=== PATIENT | female | born 1970 | race Caucasian/White ===

== ENCOUNTER 2021-02-24 13:57 | Outpatient (RCR) | payer MEDICAID, SELFPAY ==
--- NOTE | ~2021-02-24 | XR_ITS ---
XR/XR femur RT 2V IMPRESSION: Normal right femur. EXAMINATION: XR FEMUR, RIGHT CLINICAL INFORMATION: Nonhealing right upper leg wound. COMPARISON: None TECHNIQUE: AP and lateral views of the right femur were obtained. FINDINGS: The bones and soft tissues are normal. No fracture. No osseous lesions. No evidence for osteomyelitis.
== END 2021-03-19 11:36 | disposition home or self-care (01) ==
LOC: HO.WCC 13:57
PROVIDERS: PCP Internal Medicine; Referring Provider Internal Medicine; Visit Provider Physician Assistant
DX: L97.112 Non-pressure chronic ulcer of right thigh with fat layer exposed (principal); F20.9 Schizophrenia, unspecified; F17.210 Nicotine dependence, cigarettes, uncomplicated; F14.90 Cocaine use, unspecified, uncomplicated
CPT/HCPCS: 11042; 73552; 99212

== ENCOUNTER 2021-11-17 10:18 | Outpatient (REF) | payer MEDICAID, SELFPAY ==
[2021-11-24 06:51] LABS: HPV mRNA E6/E7 rflx Not Detected (Not Detected)
== END 2021-11-17 10:19 | disposition home or self-care (01) ==
LOC: HO.LAB 10:18
PROVIDERS: PCP Internal Medicine; Visit Provider Obstetrics & Gynecology
DX: Z12.4 Encounter for screening for malignant neoplasm of cervix (principal); Z11.51 Encounter for screening for human papillomavirus (HPV); N95.0 Postmenopausal bleeding; N84.1 Polyp of cervix uteri
CPT/HCPCS: 56605; 57500; 87624; 88142; 88305; 99202

== ENCOUNTER 2022-01-29 10:55 | Outpatient (REF) | payer MEDICAID, SELFPAY ==
--- NOTE | ~2022-01-29 | US_ITS ---
EXAMINATION: US PELVIS CLINICAL INFORMATION: Postmenopausal bleeding COMPARISON: None TECHNIQUE: Ultrasound of the pelvis is performed using both transabdominal and transvaginal transducers along with Doppler. Transvaginal imaging is performed due to inadequate visualization transabdominally. FINDINGS: The uterus is anteverted and measures 9.5 x 3 x 5 cm in dimension. No focal uterine lesion is seen. Endometrial thickness is normal measuring 0.3 cm. There are small nabothian cysts in the cervix. The right ovary is normal-appearing and measures 2.4 x 1.2 x 1.9 cm. the left ovary measures 2.8 x 2.1 x 1.7 cm. There is question of a 2.5 x 1.7 x 1.3 cm left ovarian cyst. There is a small amount of fluid in the pelvis. US/US pelvic and transvaginal IMPRESSION: Normal thickness endometrium. Question 2.5 x 1.7 x 1.3 cm left ovarian cyst.
== END 2022-01-29 10:56 | disposition home or self-care (01) ==
LOC: HO.US 10:55
PROVIDERS: Visit Provider Obstetrics & Gynecology
DX: N95.0 Postmenopausal bleeding (principal)
CPT/HCPCS: 76830; 76856

== ENCOUNTER 2022-02-17 09:11 | Outpatient (REF) | payer MEDICAID, SELFPAY ==
[2022-02-20 10:52] LABS: CA-125 7 U/mL (<35)
== END 2022-02-17 09:12 | disposition home or self-care (01) ==
LOC: HO.LAB 09:11
PROVIDERS: PCP Internal Medicine; Visit Provider Obstetrics & Gynecology
DX: N95.0 Postmenopausal bleeding (principal); N83.202 Unspecified ovarian cyst, left side; Z32.02 Encounter for pregnancy test, result negative
CPT/HCPCS: 36415; 81025; 86304; 99212

== ENCOUNTER 2022-12-02 11:05 | Outpatient (REF) | payer MEDICAID, SELFPAY ==
--- NOTE | ~2022-12-02 | US_ITS ---
EXAMINATION: US PELVIS CLINICAL INFORMATION: Follow up ovarian cyst. Postmenopausal. COMPARISON: None available. TECHNIQUE: Ultrasound of the pelvis is performed using both transabdominal and transvaginal transducers along with Doppler. Transvaginal imaging is performed due to inadequate visualization transabdominally. FINDINGS: The uterus is anteverted and measures 7.8 x 4 x 5.4 cm. No uterine lesion. The endometrium measures 0.4 cm in thickness without discrete focal abnormality. Ovaries are normal in morphology with preserved flow at the moment of this examination. Right ovary measures 2.8 x 0.8 x 1.8 cm, 2 mL. Left ovary measures 3 x 1.4 x 2.4 cm, 5 mL. No adnexal mass. No free fluid. US/US pelvic and transvaginal IMPRESSION: No discrete ovarian cyst/mass. No significant sonographic abnormality.
== END 2022-12-02 11:06 | disposition home or self-care (01) ==
LOC: HO.US 11:05
PROVIDERS: PCP Internal Medicine; Visit Provider Obstetrics & Gynecology
DX: N83.209 Unspecified ovarian cyst, unspecified side (principal); N95.9 Unspecified menopausal and perimenopausal disorder
CPT/HCPCS: 76830; 76856

== ENCOUNTER 2022-12-09 10:19 | Outpatient (REF) | payer MEDICAID, SELFPAY ==
[2022-12-09 10:39] LABS: MANUAL DIFF FLAG NO
[2022-12-09 10:49] LABS: Basophils Absolute Auto 0.1 X10*3/uL (0.0-0.2); Basophils Percent Auto 1.3 % (0-2); Eosinophils Absolute Auto 0.1 X10*3/uL (0.0-0.4); Eosinophils Percent Auto 1.6 % (0-4); Hematocrit 32.5 % (37.0-47.0); Hemoglobin 10.7 g/dl (12.0-16.0); Imm Gran Abs Auto 0.01 X10*3/uL (0.00-0.03); Imm Gran Pct Auto 0.1 % (0.0-0.4); Lymphocytes Absolute Auto 2.6 X10*3/uL (1.2-4.9); Lymphocytes Percent Auto 39.5 % (20-40); Mean Corpuscular HGB Conc 32.9 g/dl (31.0-35.0); Mean Corpuscular Hemoglobin 29.2 pg (27.0-33.0); Mean Corpuscular Volume 88.6 fL (80.0-98.0); Mean Platelet Volume 9.2 fL (9.4-12.3); Monocytes Absolute Auto 0.4 X10*3/uL (0.1-1.2); Monocytes Percent Auto 5.4 % (2-11); Neutrophils Absolute Auto 3.5 x10*3/uL (2.0-8.3); Neutrophils Percent Auto 52.1 % (45-73); Platelet Count 408 X10*3/uL (160-400); Red Blood Count 3.67 X10*6/uL (4.20-5.50); Red Cell Distribution Width 14.7 % (11.0-16.0); White Blood Count 6.7 X10*3/uL (4.8-10.8)
[2022-12-09 11:10] LABS: Estimated Average Glucose 108 mg/dL; Hemoglobin A1c % 5.4 % (<6.0)
[2022-12-09 11:19] LABS: Alanine Aminotransferase 22 U/L (0-31); Alkaline Phosphatase 29 U/L (39-117); Anion Gap 10 (12-20); Aspartate Amino Transferase 22 U/L (5-31); Bilirubin Total 0.2 mg/dL (0.0-1.0); Blood Urea Nitrogen 13 mg/dL (9-16); Calcium 9.2 mg/dL (8.4-10.2); Carbon Dioxide 26 mmol/L (22-29); Chloride 105 mmol/L (96-108); Estimated Glomerular Filt Rate > 60; Glucose Random 128 mg/dL (60-115); Sodium 137 mmol/L (135-145); Total Protein 7.2 g/dL (6.5-8.0)
[2022-12-09 11:29] LABS: Ferritin 11 ng/mL (10-250)
[2022-12-09 11:44] LABS: Folate 18.5 ng/mL (> or = 4.0); Vitamin B12 838 pg/mL (200-900)
[2022-12-09 12:51] LABS: CT PCR NOT DETECTED (Not Detect.); NG PCR NOT DETECTED (Not Detect.)
[2022-12-10 07:59] LABS: HIV AB/AG Nonreactive (Nonreactive); HIV Num 1 0.53 S/CO (0.00-0.99)
[2022-12-10 08:48] LABS: Syphilis Screen Nonreactive (Nonreactive)
== END 2022-12-09 10:20 | disposition home or self-care (01) ==
LOC: HO.LAB 10:19
PROVIDERS: PCP Internal Medicine; Visit Provider Internal Medicine
DX: D64.9 Anemia, unspecified (principal); E89.0 Postprocedural hypothyroidism; F10.19 Alcohol abuse with unspecified alcohol-induced disorder; F14.24 Cocaine dependence with cocaine-induced mood disorder; Z11.3 Encounter for screening for infections with a predominantly sexual mode of transmission
CPT/HCPCS: 0353U; 80053; 82607; 82728; 82746; 83036; 85025; 86780; 87389

== ENCOUNTER 2023-01-06 08:40 | Outpatient (AMB) | payer MEDICAID, SELFPAY ==
--- NOTE | 2023-01-06 08:58 | A.OFFVIS_ITS ---
Intake Vital Signs 01/06/23 08:59 Height 5 ft 4 in Weight 119 lb 0.794 oz BMI 20.4 BP 118/74 Intake Visit Reasons: US follow up Rest Room Attendant Required: Yes Rest Room Attendant Language: Mortar Maker Name: Yamini PETERS Information Interpreted: non-clinical & clinical Accompanied by: Friend Allergies Penicillins Allergy (Intermediate, Verified 01/06/23 09:02) Rash Post menopausal: Yes HPI HPI Comments History of Present Illness Details Presenting for follow-up repeat ultrasound regarding a left ovarian cyst 2.5 cm seen on previous ultrasound done in 01/30. Ultrasound done recently showed the following: MPRESSION: No discrete ovarian cyst/mass. No significant sonographic abnormality. PFSH Medical History Schizo affective schizophrenia Depression Anxiety Surgical History Hx of tonsillectomy Hx of tubal ligation S/P thyroid surgery Family History Sister Breast cancer Mother Alzheimer disease Father Prostate cancer Social History Household Members: None Housing: Apartment Alcohol intake: current Alcohol intake frequency: holidays/special occasions only Alcohol type: beer Patient Tobacco Use Status: Current everyday Tobacco user Cigarettes Per Day: 7 Years Smoked: 25 Review of Systems Const All systems reviewed & are unremarkable except as noted in HPI and below Reports as per HPI and Reports no additional complaints GI Reports no additional complaints Reports no additional complaints Physical Exam Vital Signs: Last Vital Signs BP 118/74 01/06/23 08:59 BMI result Body Mass Index 20.4 Assessment & Plan Assessment & Plan (1) Ovarian cyst: Comment: Resolved Code(s): N83.209 - Unspecified ovarian cyst, unspecified side Plan: Discussed with the patient ultrasound findings showing the previously identified ovarian cyst has resolved. The patient was instructed to call if symptoms recur. All questions were answered the patient verbalized understanding. Coding Level of Care Code Est Pt Level 3 (94638) Diagnoses Ovarian cyst N83.209
[2023-01-06 08:59] VITALS: BP 118/74; BMI 20.4
== END 2023-01-06 13:09 | disposition home or self-care (01) ==
LOC: HO.HWS 08:40
PROVIDERS: PCP Internal Medicine; Visit Provider Obstetrics & Gynecology
DX: N83.209 Unspecified ovarian cyst, unspecified side (principal)
CPT/HCPCS: 99213

== ENCOUNTER → 2023-01-06 08:40 | Outpatient (BNVA) | payer MEDICAID, SELFPAY | PROVIDERS: PCP Internal Medicine; Visit Provider Obstetrics & Gynecology | DX: Z71.2 Person consulting for explanation of examination or test findings (principal) | CPT/HCPCS: 99212 ==

== ENCOUNTER 2023-05-04 09:46 | Outpatient (AMB) | payer MEDICAID, SELFPAY ==
[2023-05-04 09:50] VITALS: BP 110/66; BMI 19.7
--- NOTE | 2023-05-04 09:50 | A.OFFVIS_ITS ---
Intake Vital Signs 05/04/23 09:50 Height 5 ft 4 in Weight 115 lb BMI 19.7 BP 110/66 Intake Visit Reasons: SEPARATOR INSERTER annual exam Software Testing Specialist Required: Yes Software Testing Specialist Language: Stapler Coil Unit Name: Yamini PETERS Information Interpreted: non-clinical & clinical Coal Loader: Coal Loader Present (Yamini PETERS) Accompanied by: Employee Allergies Penicillins Allergy (Intermediate, Verified 05/04/23 09:57) Rash Post menopausal: Yes HPI HPI Comments History of Present Illness Details Presenting for annual exam. Complaining of vaginal discharge associated with foul odor Last Pap/HPV was in 11/30 was negative Last Mammogram was more than a year ago No previous screening Colonoscopy PFSH Medical History Schizo affective schizophrenia Depression Anxiety Surgical History Hx of tubal ligation Hx of tonsillectomy S/P thyroid surgery Family History Sister Breast cancer Mother Alzheimer disease Father Prostate cancer Social History Household Members: None Housing: Apartment Alcohol intake: current Alcohol intake frequency: holidays/special occasions only Alcohol type: beer Patient Tobacco Use Status: Current everyday Tobacco user Cigarettes Per Day: 7 Years Smoked: 25 Current occupational status: disabled Sexual orientation: Straight/Heterosexual Gender identity: Female Female Reproductive History Menstrual Menopause type: natural Total pregnancies: 6 Full term: 4 Number of Living Children: 4 Ab spontaneous: 2 Date of last pap smear: 11/19/21 Review of Systems Const All systems reviewed & are unremarkable except as noted in HPI and below Card Reports as per HPI Resp Reports as per HPI GI Reports as per HPI and Reports no additional complaints Reports as per HPI Physical Exam Vital Signs: Last Vital Signs BP 110/66 05/04/23 09:50 BMI result Body Mass Index 20.4 Const General: cooperative, healthy appearing and comfortable Chest Chest palpation & inspection: normal inspection of the chest and normal palpation of entire chest wall Breast/axilla inspection: normal inspection of the breasts and normal inspection of the axillae Breast/axilla palpation: normal palpation of the breasts, normal palpation of the axillae and no axillary lymphadenopathy Resp Effort & Inspection: normal respiratory effort Auscultation: clear to auscultation bilaterally Percussion: percussion normal Cardio Palpation: normal PMI Rate: regular rate Rhythm: regular rhythm Heart sounds: no murmurs and no rubs Peripheral pulses: Peripheral pulses 2+ throughout GI Inspection: Yes normal to inspection Palpation (GI): Soft to palpation, nontender, no guarding, not rigid and No hepatosplenomegaly present Percussion: Yes normal to percussion Auscultation: normal bowel sounds Rectal Exam - Female: deferred General: Yes bladder normal to palpation External Female Exam: No lesion Speculum Exam - Vagina: normal appearance of the vagina, normal palpation, normal vaginal discharge and not erythematous Speculum Exam - Cervix: normal appearance of the cervix and normal palpation Bimanual exam- vagina & uterus: normal bimanual exam, normal palpation, uterine size normal, bladder normal to palpation, consistency normal and normal palpation Bimanual Exam- Adnexa, other: normal adnexae, no masses and no tenderness Assessment & Plan Assessment & Plan (1) Well woman exam: Code(s): Z01.419 - Encounter for gynecological examination (general) (routine) without abnormal findings Plan: Co testing not indicated this year. Counseled the patient about the recommended dietary allowance of 1200 mg of Calcium & 600 IU of vitamin D. Mammogram ordered. The patient was referred to GI for screening colonoscopy . The patient was instructed to perform monthly self-breast exams and schedule annual exam in a year. All questions answered and the patient verbalized understanding. (2) Bacterial vaginosis: Code(s): N76.0 - Acute vaginitis; B96.89 - Other specified bacterial agents as the cause of diseases classified elsewhere Plan: GC and chlamydia cultures with BV panel taken. Per CDC recommendation, will screen for STI, HepBs Ag, HIV, RPR, Hep C Ab ordered. Will treat with Flagyl 500 mg p.o. b.i.d. x 7 days, Instructions given to the patient to refrain from sexual activity or to use condoms consistently and correctly during the BV treatment regimen, not to douch, it might increase the risk for relapse, and to call if symptoms persist or recur. Orders: Orders Hepatitis B Surface Antigen Today B96.89 - Other specified bacterial agents as the cause of diseases classified elsewhere, N76.0 - Acute vaginitis HIV Ab/Ag Today B96.89 - Other specified bacterial agents as the cause of diseases classified elsewhere, N76.0 - Acute vaginitis Hepatitis C Antibody Today B96.89 - Other specified bacterial agents as the cause of diseases classified elsewhere, N76.0 - Acute vaginitis Syphilis Screen Today B96.89 - Other specified bacterial agents as the cause of diseases classified elsewhere, N76.0 - Acute vaginitis MM tomosynthesis screening BI Today Z12.31 - Encounter for screening mammogram for malignant neoplasm of breast Referrals Gastroenterology Referral Z12.11 - Encounter for screening for malignant neoplasm of colon Medications: New metronidazole 500 mg PO BID 14 tabs 0RF 7 days Coding Level of Care Code Est Pt Prev Care 40-64y(84219) Diagnoses Well woman exam Z01.419 Bacterial vaginosis N76.0; B96.89
== END 2023-05-04 10:30 | disposition home or self-care (01) ==
PROVIDERS: PCP Internal Medicine; Referring Provider Internal Medicine; Visit Provider Obstetrics & Gynecology
DX: Z01.419 Encounter for gynecological examination (general) (routine) without abnormal findings (principal); N76.0 Acute vaginitis; B96.89 Other specified bacterial agents as the cause of diseases classified elsewhere
CPT/HCPCS: 99396

== ENCOUNTER 2023-05-04 09:46 | Outpatient (REF) | payer MEDICAID, SELFPAY ==
[2023-05-04 12:51] LABS: Syphilis Screen Nonreactive (Nonreactive)
[2023-05-04 14:04] LABS: CT PCR NOT DETECTED (Not Detect.); NG PCR NOT DETECTED (Not Detect.)
[2023-05-05 08:33] LABS: HBsAGNum1 0.39 S/CO (0.00-0.99); HIV AB/AG Nonreactive (Nonreactive); HIV Num 1 0.06 S/CO (0.00-0.99); Hepatitis B Surface Antigen Negative (Negative); ~HepC Num1 14.03 S/CO (0.00-0.79); ~Hepatitis C Antibody Reactive (Nonreactive)
[2023-05-05 13:43] LABS: BV Int Neg Control Negative (Negative); BV Int Pos Control Positive (Positive)
== END 2023-05-04 09:47 | disposition home or self-care (01) ==
LOC: HO.LAB 09:46
PROVIDERS: PCP Internal Medicine; Visit Provider Obstetrics & Gynecology
DX: Z01.419 Encounter for gynecological examination (general) (routine) without abnormal findings (principal); Z11.4 Encounter for screening for human immunodeficiency virus [HIV]; N76.0 Acute vaginitis; B96.89 Other specified bacterial agents as the cause of diseases classified elsewhere
CPT/HCPCS: 0353U; 36415; 86780; 86803; 87340; 87389; 87480; 87510; 87660; 99396

== ENCOUNTER 2023-05-09 09:25 | Outpatient (REF) | payer MEDICAID, SELFPAY ==
[2023-05-11 16:49] LABS: HCV RNA PCR Qn 1880000 IU/mL (NOT DETECTED); HCV RNA PCR Qn 6.27 Log IU/mL (NOT DETECTED)
[2023-05-15 21:08] LABS: HCV Genotype LiPA 1a
== END 2023-05-09 09:26 | disposition home or self-care (01) ==
LOC: HO.LAB 09:25
PROVIDERS: PCP Internal Medicine; Visit Provider Obstetrics & Gynecology
DX: R76.8 Other specified abnormal immunological findings in serum (principal)
CPT/HCPCS: 36415; 87522; 87902

== ENCOUNTER 2023-05-11 10:24 | Outpatient (REF) | payer MEDICAID, SELFPAY ==
[2023-05-12 14:07] LABS: BV Int Neg Control Negative (Negative); BV Int Pos Control Positive (Positive)
== END 2023-05-11 10:25 | disposition home or self-care (01) ==
LOC: HO.LNP 10:24
PROVIDERS: PCP Internal Medicine; Visit Provider Obstetrics & Gynecology
DX: A59.9 Trichomoniasis, unspecified (principal); R76.8 Other specified abnormal immunological findings in serum
CPT/HCPCS: 87480; 87510; 87660; 99212

== ENCOUNTER 2023-05-11 10:24 | Outpatient (AMB) | payer MEDICAID, SELFPAY ==
[2023-05-11 10:38] VITALS: BP 112/70; BMI 19.7
--- NOTE | 2023-05-11 10:38 | MHC.OFFVIS ---
Intake Vital Signs 05/11/23 10:38 Height 5 ft 4 in Weight 115 lb BMI 19.7 BP 112/70 Intake Visit Reasons: MIGUEL ÁNGEL Drawing In Machine Tender Helper Required: Yes Drawing In Machine Tender Helper Language: Practice Clinician Name: Yamini Information Interpreted: non-clinical & clinical Marketing Admin: Marketing Admin Present (Yamini) Allergies Penicillins Allergy (Intermediate, Verified 05/11/23 10:39) Rash HPI HPI Comments History of Present Illness Details The patient is presenting for a test of cure. The patient took the antibiotics course; she informed her partner who was treated too. The patient reports no intercourse since then. Hep C antibody was positive, HCV RNA results are still pending [facility] Medical History Schizo affective schizophrenia Depression Anxiety Surgical History Hx of tubal ligation Hx of tonsillectomy S/P thyroid surgery Family History Sister Breast cancer Mother Alzheimer disease Father Prostate cancer Social History Household Members: None Housing: Apartment Alcohol intake: current Alcohol intake frequency: holidays/special occasions only Alcohol type: beer Patient Tobacco Use Status: Current everyday Tobacco user Cigarettes Per Day: 7 Years Smoked: 25 Current occupational status: disabled Sexual orientation: Straight/Heterosexual Gender identity: Female Review of Systems Const All systems reviewed & are unremarkable except as noted in HPI and below Physical Exam Vital Signs: Last Vital Signs BP 112/70 05/11/23 10:38 BMI result Body Mass Index 19.7 General: Yes no CVA tenderness External Female Exam: normal external appearance and normal appearance of the urethra Speculum Exam - Vagina: normal appearance of the vagina, normal palpation, no lesions and no masses Speculum Exam - Cervix: normal appearance of the cervix, normal palpation, no lesions, no masses and nontender Bimanual exam- vagina & uterus: normal bimanual exam, normal palpation, uterine size normal, normal palpation, uterine shape normal, No Cervical tenderness present and non-tender Bimanual Exam- Adnexa, other: normal adnexae Back/Spine/Pelvis Back: no CVA tenderness Assessment & Plan Assessment & Plan (1) Hepatitis C antibody positive in blood: Code(s): R76.8 - Other specified abnormal immunological findings in serum Plan: Discussed with the patient the results the hep C antibody positive, HCV RNA results are still pending. If positive will refer to infectious disease specialist. All questions answered, the patient verbalized understanding (2) Trichomonas infection: Comment: Treated for test of cure Code(s): A59.9 - Trichomoniasis, unspecified Plan: BV panel collected, will check the results and treat accordingly. Instructions given the patient to schedule a 3 months MIGUEL ÁNGEL appointment. All questions answered, the patient verbalized understanding Coding Level of Care Code Est Pt Level 3 (83087) Diagnoses Hepatitis C antibody positive in blood R76.8 Trichomonas infection A59.9
== END 2023-05-11 10:50 | disposition home or self-care (01) ==
LOC: HO.HWS 10:24
PROVIDERS: PCP Internal Medicine; Visit Provider Obstetrics & Gynecology
DX: R76.8 Other specified abnormal immunological findings in serum (principal); A59.9 Trichomoniasis, unspecified
CPT/HCPCS: 99213

== ENCOUNTER 2023-05-16 10:21 | Outpatient (AMB) | payer MEDICAID, SELFPAY ==
--- NOTE | 2023-05-16 10:22 | MHC.OFFVIS ---
Intake Intake Visit Reasons: Labs results/[phone] Allergies Penicillins Allergy (Intermediate, Verified 05/11/23 10:39) Rash HPI HPI Comments History of Present Illness Details The patient is scheduled tele health visit for follow-up . Hepatitis-C antibody was positive, HCV RNA genotype = 1A, HCV RNA 1,880,000 IU/milliliter, 6.27 log IU per mL. Trichomonas MIGUEL ÁNGEL was negative Gardnerella vaginitis was positive, the patient is not complaining of any vaginal discharge or foul odor PFSH Medical History Schizo affective schizophrenia Depression Anxiety Surgical History Hx of tubal ligation Hx of tonsillectomy S/P thyroid surgery Family History Sister Breast cancer Mother Alzheimer disease Father Prostate cancer Social History Household Members: None Housing: Apartment Alcohol intake: current Alcohol intake frequency: holidays/special occasions only Alcohol type: beer Patient Tobacco Use Status: Current everyday Tobacco user Cigarettes Per Day: 7 Years Smoked: 25 Current occupational status: disabled Sexual orientation: Straight/Heterosexual Gender identity: Female Review of Systems Const All systems reviewed & are unremarkable except as noted in HPI and below Reports as per HPI and Reports no additional complaints GI Reports no additional complaints Reports no additional complaints Assessment & Plan Assessment & Plan (1) Hepatitis C: Code(s): B19.20 - Unspecified viral hepatitis C without hepatic coma Plan: Discussed with the patient the results of her HC antibody positive and HCV RNA results and genotype, referred the patient to IUD for further management, all questions answered, the patient verbalized understanding. I spent a total of 20 minutes reviewing the chart, talking to the patient via phone and documenting in the medical record. Telehealth Telehealth Location of provider rendering services: practice address Location of patient: address on file Patient Identification confirmed using: Name, : Yes Telehealth method: voice only Patient verbally consented to treatment: Yes Patient verbally consented to billing insurance company: Yes Patient informed of any privacy concerns related to visit: Yes Coding Level of Care Code Tele Est Pt Level 1 (34837) Diagnoses Hepatitis C B19.20
== END 2023-05-16 14:39 | disposition home or self-care (01) ==
LOC: HO.HWS 10:21
PROVIDERS: PCP Internal Medicine; Visit Provider Obstetrics & Gynecology
DX: B19.20 Unspecified viral hepatitis C without hepatic coma (principal)
CPT/HCPCS: 99211

== ENCOUNTER → 2023-05-16 10:21 | Outpatient (BNVA) | payer MEDICAID, SELFPAY | PROVIDERS: PCP Internal Medicine; Visit Provider Obstetrics & Gynecology ==

== ENCOUNTER 2023-05-19 09:53 | Outpatient (REF) | payer MEDICAID, SELFPAY | END 2023-05-19 09:54 | disposition home or self-care (01) | LOC: HO.MAMMO 09:53 | PROVIDERS: PCP Internal Medicine; Visit Provider Obstetrics & Gynecology | DX: Z13.89 Encounter for screening for other disorder (principal) ==

== ENCOUNTER 2023-06-01 13:35 | Outpatient (AMB) | payer MEDICAID, SELFPAY ==
--- NOTE | 2023-06-01 13:39 | MHC.OFFVIS ---
Intake Vital Signs 06/01/23 13:52 Height 5 ft 4 in Weight 116 lb BMI 19.9 BP 124/70 Blood Pressure Location Lt brachial Position Sitting Pulse 85 Pulse Source Pulse Oximeter Pulse Oximetry (%) 85 L Intake Visit Reasons: Ref.Mel Quispe-C Letterset Press Set Up Operator Required: Yes Letterset Press Set Up Operator Name: Kike No STEP FINISHER Information Interpreted: clinical only Allergies Penicillins Allergy (Intermediate, Verified 06/01/23 13:53) Rash HPI Ref.Jeannette Quispe HPI Details She is referral for Hepatitis C. She has viral load 1,880,000 on 05/09 and is HIV negative. She mentions being at risk for HIV acquisition as well. [facility] Medical History Schizo affective schizophrenia Depression Anxiety Surgical History Hx of tubal ligation Hx of tonsillectomy S/P thyroid surgery Family History Sister Breast cancer Mother Alzheimer disease Father Prostate cancer Social History Household Members: None Housing: Apartment Alcohol intake: current Alcohol intake frequency: holidays/special occasions only Alcohol type: beer Patient Tobacco Use Status: Current everyday Tobacco user Cigarettes Per Day: 7 Years Smoked: 25 Current occupational status: disabled Sexual orientation: Straight/Heterosexual Gender identity: Female Review of Systems Const All systems reviewed & are unremarkable except as noted in HPI and below Physical Exam Vital Signs: Last Vital Signs Pulse 85 06/01/23 13:52 BP 124/70 06/01/23 13:52 Pulse Ox 85 L 06/01/23 13:52 BMI result Body Mass Index 19.9 Const General: cooperative Orientation/consciousness: patient oriented x3 HEENT Head: Yes normal to inspection Mouth: Normal oral and palatal mucosa present Eyes General: appearance normal, both eyes and all related structures Pupils: Equal, round and reactive pupils present Resp Effort & Inspection: normal respiratory effort Cardio Rate: regular rate Rhythm: regular rhythm GI Palpation (GI): Soft to palpation and nontender General: Yes no CVA tenderness Back/Spine/Pelvis Back: no CVA tenderness Skin General skin exam: no rashes or lesions noted Neuro General: patient oriented x3 Cranial nerves: Yes CN's II-XII intact bilaterally and Yes Equal, round and reactive pupils present Extrem General: Yes normal to inspection Psych Appearance: grossly normal Assessment & Plan Assessment & Plan (1) Hepatitis C: Comment: She thinks she may have cirrhosis per PCP Dr Ramires she mentions. She also reports sexual risk factor for HIV Code(s): B19.20 - Unspecified viral hepatitis C without hepatic coma Plan: Truvada one po daily one month with refills HIV prophylaxis. Hepatitis C fibrosis test and u/s and if cirrhosis send to GI but if not would treat with probable Epclusa for 3 months. She is HIV negative and syphilis negative. See in one month. Orders: Orders Liver Fibrosis Pnl Today B19.20 - Unspecified viral hepatitis C without hepatic coma US abdomen kumar w elastography Today B19.20 - Unspecified viral hepatitis C without hepatic coma Medications: New emtricitabine-tenofovir (TDF) 200-300 mg (Truvada) 1 tab PO DAILY 30 tabs 5RF 30 days Coding Level of Care Code New Pt Level 3 (52148) Diagnoses Hepatitis C B19.20
[2023-06-01 13:52] VITALS: BP 124/70; PULSE 85; O2SAT 85; BMI 19.9
== END 2023-06-01 15:40 | disposition home or self-care (01) ==
PROVIDERS: PCP Internal Medicine; Visit Provider Internal Medicine
DX: B19.20 Unspecified viral hepatitis C without hepatic coma (principal)
CPT/HCPCS: 99203

== ENCOUNTER 2023-06-01 13:35 | Outpatient (REF) | payer MEDICAID, SELFPAY ==
[2023-06-08 02:08] LABS: FIB-ALT 26 U/L (6-29); FIB-Alpha-2-Macroglobulin 185 mg/dL (106-279); FIB-Apolipoprotein A1 189 mg/dL (101-198); FIB-GGT 12 U/L (3-70); FIB-Haptoglobin 85 mg/dL (43-212); FIB-Total Bilirubin 0.3 mg/dL (0.2-1.2); Liver Fibrosis Score 0.07; Liver Fibrosis Stage F0; Nec Inflam Act Grade A0; Nec Inflam Act Score 0.09
== END 2023-06-01 13:36 | disposition home or self-care (01) ==
LOC: HO.LAB 13:35
PROVIDERS: PCP Internal Medicine; Visit Provider Internal Medicine
DX: B19.20 Unspecified viral hepatitis C without hepatic coma (principal)
CPT/HCPCS: 36415; 81596; 99202

== ENCOUNTER 2023-06-09 11:05 | Outpatient (REF) | payer MEDICAID, SELFPAY ==
--- NOTE | ~2023-06-09 | MM_ITS ---
EXAMINATION: MM DIAGNOSTIC DIGITAL BREAST TOMOSYNTHESIS, BILATERAL CLINICAL INFORMATION: Six-month follow-up left breast calcifications probably benign, upper outer quadrant. The patient did not return for follow-up for 10 months. In addition, patient now complaining of 2 foci of palpable concern left breast anterior 10:00 axis, and left posterior 12:00 axis. Both were marked by the technologist. COMPARISON: Mammography: 07/26/2022 left ([facility]), 01/20/2022, 06/16/2021, 07/22/2020 left ([facility]) TECHNIQUE: Digital breast tomosynthesis is performed in both the craniocaudal and mediolateral oblique views along with computer-aided detection (CAD). Synthesized 2D images are generated from the tomosynthesis. In addition to standard views, 2-D spot magnification views were performed in the left CC and ML views with a large paddle. FINDINGS: The breasts are extremely dense, which lowers the sensitivity of mammography (ACR BI-RADS breast composition Category d). LEFT BREAST: -Areas of palpable concern have been marked by the technologist within the left breast, approximate 1:00 axis mid to anterior one third, and approximately 12:00 axis posterior one third. -A slightly lobulated oval mass is present in the far posterior left breast, lateral slightly upper quadrant, posterior one third, just above the nipple line but does not persist on the spot compression view. -Just cephalad to the upper outer benign calcifications, there is a region of extremely dense tissue which could be hiding an underlying abnormality. Ultrasound of this region recommended. This abuts a palpable marker. -In the slightly lower far outer left breast, middle one third, there is an oval asymmetry measuring 1.8 cm in length for which ultrasound recommended. -Focal Asymmetry in the lateral periareolar region, far anterior left breast, should be evaluated by ultrasound. There is an abutting palpable marker. -There is a focus of grouped rounded benign-appearing calcifications in the outer upper left breast, posterior one third, unchanged. These are benign. RIGHT BREAST: -There are a few punctate calcifications in the retroareolar right breast, also stable and benign. -There is a 1.0 cm oval mass in the far posterior right breast seen only on the MLO projection just above the nipple line, overlying the pectoralis fascia. This should be evaluated with ultrasound. There are small oval circumscribed masses in both breasts, most likely small cysts or fibroadenomas and benign. These are stable. The nodular extremely dense parenchymal pattern otherwise appears stable from 2021 and 2020 exams. MM/MM tomosynthesis diagnostic BI IMPRESSION: -Numerous left breast asymmetries and focal asymmetries as detailed, for which targeted left breast ultrasound assessment of the Left upper outer quadrant, lower outer quadrant, and lateral periareolar region is recommended, with attention to the palpable markers 1:00 and 12:00. -1.0 cm far posterior RIGHT breast oval asymmetry just above the nipple line overlying the pectoralis fascia should be evaluated with ultrasound. -Breast density is extremely dense and nodular, complicating the overall evaluation for focal abnormalities. This is most consistent with bilateral extensive fibrocystic change. -Benign calcifications left breast upper outer quadrant. ASSESSMENT: BI-RADS BI-RADS 0 - Incomplete: Needs additional Imaging. RECOMMENDATION: Additional Imaging required Results were provided to the patient at time of visit by the technologist. This patient's information was entered into a reminder system with a target due date for their next mammogram.
== END 2023-06-09 11:06 | disposition home or self-care (01) ==
LOC: HO.MAMMO 11:05
PROVIDERS: PCP Internal Medicine; Visit Provider Internal Medicine
DX: R92.1 Mammographic calcification found on diagnostic imaging of breast (principal); N64.89 Other specified disorders of breast
CPT/HCPCS: 77062; 77066

== ENCOUNTER → 2023-06-09 13:41 | Outpatient (BNV) | payer MEDICAID, SELFPAY | PROVIDERS: PCP Internal Medicine; Visit Provider Radiology Diagnostic Radiology | DX: R92.1 Mammographic calcification found on diagnostic imaging of breast (principal) | CPT/HCPCS: 77062; 77066 ==

== ENCOUNTER → 2023-06-21 15:00 | Outpatient (BNV) | payer MEDICAID, SELFPAY | PROVIDERS: PCP Internal Medicine; Visit Provider Radiology Diagnostic Radiology | DX: N60.01 Solitary cyst of right breast (principal); R92.8 Other abnormal and inconclusive findings on diagnostic imaging of breast | CPT/HCPCS: 76642 ==

== ENCOUNTER 2023-06-21 15:26 | Outpatient (REF) | payer MEDICAID, SELFPAY ==
--- NOTE | ~2023-06-21 | US_ITS ---
EXAMINATION: US DIAGNOSTIC ULTRASOUND BREAST, BILATERAL CLINICAL INFORMATION: -Follow-up ultrasound for areas of palpable concern left breast 1:00 axis, 12:00 axis. -Evaluate possible lobulated oval mass posterior left breast lateral slightly upper quadrant just above the nipple line. -Evaluate region of extremely dense tissue just cephalad to the upper outer left breast in region of palpable marker. -Evaluate focal asymmetry lateral periareolar region, far anterior left breast where there is an abutting palpable marker. -Evaluate 1.0 cm oval mass in the far posterior right breast seen only on the MLO projection just above the nipple line. -Evaluate small oval circumscribed masses in both breasts, most likely small cysts or fibroadenomas. COMPARISON: Mammography bilateral 06/09/2023, and dating back to 07/22/2020. No prior ultrasound. TECHNIQUE: Ultrasound of both breasts was performed with real-time valentine scale imaging and color Doppler. Attention was given to the above possible abnormalities. Right breast was scanned from the 7:00 axis to the 12:00 axis. Left breast was scanned from the 12:00 axis to the 7:00 axis, and including the retroareolar region. FINDINGS: RIGHT BREAST: There is no focal suspicious finding. There is no solid mass, architectural abnormality, duct ectasia, or edema in the soft tissue planes. There is a small simple cyst measuring 4 mm in the 10:00 axis of the right breast, 4 cm from the nipple. LEFT BREAST :There is no focal suspicious finding. There is no solid mass, architectural abnormality, duct ectasia, or edema in the soft tissue planes. There are no cystic abnormalities. US/US breast BI limited mamm only IMPRESSION: No sonographic findings in either breast suspicious for malignancy. Benign simple cyst measuring 4 mm 10:00 axis of the right breast. Recommend the patient resume routine annual screening mammography. ASSESSMENT: BI-RADS 2: Benign RECOMMENDATION: Routine annual mammography screening. This patient's information was entered into a reminder system with a target due date for their next mammogram.
== END 2023-06-21 15:27 | disposition home or self-care (01) ==
LOC: HO.MAMMO 15:26
PROVIDERS: PCP Internal Medicine; Visit Provider Internal Medicine
DX: R92.2 Inconclusive mammogram (principal)
CPT/HCPCS: 76642

== ENCOUNTER 2023-06-24 09:50 | Outpatient (REF) | payer MEDICAID, SELFPAY ==
--- NOTE | ~2023-06-24 | US_ITS ---
EXAMINATION: US ABDOMEN LIMITED WITH LIVER ELASTOGRAPHY CLINICAL INFORMATION: History of viral hepatitis C. COMPARISON: None available. TECHNIQUE: Real-time imaging of the abdominal viscera. Noninvasive ultrasound liver fibrosis assessment is performed using Gadiel ElastPQ point quantification shear wave elastography (2D-SWE) with a C5-2 MHz transducer. Multiple elastography samples are obtained. FINDINGS: PANCREAS: Normal. LIVER: The liver has normal size and contour. The parenchymal echotexture appears to be in the normal range. The echogenicity of the portal venous castillo is maintained. Incidentally noted is a 1.9 x 1.6 x 1.7 cm cyst in the right lobe. No suspicious liver lesion or intrahepatic ductal dilatation. The right lobe measures 13.5 cm in length. The left lobe measures 11.8 cm in length. Portal flow is normal. Shear wave liver elastography median stiffness is 1.54 m/s (reference: normal median stiffness is 1.3 m/s or less). IQR/median stiffness to assess sampling precision is 0.16 (reference: good quality data set is IQR/median stiffness of 0.15 or less). GALLBLADDER: Cholelithiasis is noted. No gallbladder wall thickening or pericholecystic fluid. COMMON BILE DUCT: Normal in caliber measuring 0.2 cm in diameter. RIGHT KIDNEY: Normal. No hydronephrosis. No renal calculi or focal parenchymal lesions. The kidney measures 10 cm in maximum dimension. FREE FLUID: None. US/US abdomen kumar w elastography IMPRESSION: * Shear wave liver elastography reveals a median stiffness of 1.54 m/s (reference: normal median stiffness is 1.3 m/s or less). In the absence of other known clinical signs, this rules out compensated advanced chronic liver disease. * 1.9 cm benign cyst of the liver. * Cholelithiasis without evidence of cholecystitis or biliary tract obstruction. REFERENCE: Society of Radiologists in Ultrasound Liver Stiffness Thresholds (2020): LIVER STIFFNESS THRESHOLDS: *Liver Stiffness equal or less than 1.3 m/s: High probability of being normal. *Liver Stiffness less than 1.7 m/s: In the absence of other known clinical signs, rules out compensated advanced chronic liver disease. *Liver Stiffness 1.7-2.1 m/s: Suggestive of compensated advanced chronic liver disease but need further test for confirmation. *Liver Stiffness over 2.1 m/s: Rules in compensated advanced chronic liver disease. *Liver Stiffness over 2.4 m/s: Suggestive of clinically significant portal hypertension. QUALITY OF DATA SET: *IQR/Median value equal or less than 0.15 implies a quality data set. *IQR/Median value over 0.15 implies a poor quality data set. OTHER CONSIDERATIONS: The stage of liver fibrosis may be overestimated in the setting of acute hepatitis, liver inflammation, elevated liver function tests, hepatic vascular congestion, obstructive cholestasis, non-fasting state, and infiltrative diseases such as amyloidosis and lymphoma. In some patients with NAFLD, the liver stiffness thresholds for compensated advanced chronic liver disease may be lower. In causes other than viral hepatitis and NAFLD, liver stiffness thresholds are not well established.
== END 2023-06-24 09:51 | disposition home or self-care (01) ==
LOC: HO.US 09:50
PROVIDERS: PCP Internal Medicine; Visit Provider Internal Medicine
DX: B19.20 Unspecified viral hepatitis C without hepatic coma (principal)
CPT/HCPCS: 76705; 76981

== ENCOUNTER 2023-07-06 13:59 | Outpatient (AMB) | payer MEDICAID, SELFPAY ==
[2023-07-06 14:22] VITALS: PULSE 107; O2SAT 98; BMI 19.1
--- NOTE | 2023-07-06 14:22 | MHC.OFFVIS ---
Intake Vital Signs 07/06/23 14:22 Height 5 ft 4 in Weight 111 lb BMI 19.1 Pulse 107 H Pulse Source Pulse Oximeter Pulse Oximetry (%) 98 Intake Visit Reasons: follow up hepc labs Front End Wheel Loader Operator Required: Yes Front End Wheel Loader Operator Name: Kike No [facility] Information Interpreted: clinical only Allergies Penicillins Allergy (Intermediate, Verified 07/06/23 14:23) Rash HPI follow up hepc labs HPI Details She has been using Truvada and has no complaints with it. She has started Mavyret on 06/08. She has no complaints. [facility] Medical History Schizo affective schizophrenia Depression Anxiety Surgical History Hx of tubal ligation Hx of tonsillectomy S/P thyroid surgery Family History Sister Breast cancer Mother Alzheimer disease Father Prostate cancer Social History Household Members: None Housing: Apartment Alcohol intake: current Alcohol intake frequency: holidays/special occasions only Alcohol type: beer Patient Tobacco Use Status: Current everyday Tobacco user Cigarettes Per Day: 7 Years Smoked: 25 Current occupational status: disabled Sexual orientation: Straight/Heterosexual Gender identity: Female Review of Systems Const All systems reviewed & are unremarkable except as noted in HPI and below Physical Exam Vital Signs: Last Vital Signs Pulse 107 H 07/06/23 14:22 Pulse Ox 98 07/06/23 14:22 BMI result Body Mass Index 19.1 Const General: cooperative Orientation/consciousness: patient oriented x3 HEENT Head: Yes normal to inspection Mouth: Normal oral and palatal mucosa present Eyes General: appearance normal, both eyes and all related structures Pupils: Equal, round and reactive pupils present Resp Effort & Inspection: normal respiratory effort Cardio Rate: regular rate Rhythm: regular rhythm GI Palpation (GI): Soft to palpation and nontender General: Yes no CVA tenderness Back/Spine/Pelvis Back: no CVA tenderness Skin General skin exam: no rashes or lesions noted Neuro General: patient oriented x3 Cranial nerves: Yes CN's II-XII intact bilaterally and Yes Equal, round and reactive pupils present Extrem General: Yes normal to inspection Psych Appearance: grossly normal Assessment & Plan Assessment & Plan (1) Hepatitis C: Comment: She needs to finish Mavyret, Her fibrosis score is F0. Code(s): B19.20 - Unspecified viral hepatitis C without hepatic coma Plan: Continue Mavyret for eight weeks. Continue Truvada. Check MIGUEL ÁNGEL four weeks and three months. Orders: Orders HIV Ab/Ag 07/06/23 B19.20 - Unspecified viral hepatitis C without hepatic coma Hepatitis C Viral Load 1 Month B19.20 - Unspecified viral hepatitis C without hepatic coma Coding Level of Care Code Est Pt Level 3 (43553) Diagnoses Hepatitis C B19.20
== END 2023-07-06 14:54 | disposition home or self-care (01) ==
LOC: HO.HID 13:59
PROVIDERS: PCP Internal Medicine; Referring Provider Internal Medicine; Visit Provider Internal Medicine
DX: B19.20 Unspecified viral hepatitis C without hepatic coma (principal)
CPT/HCPCS: 99213

== ENCOUNTER → 2023-07-06 13:59 | Outpatient (BNVA) | payer MEDICAID, SELFPAY | PROVIDERS: PCP Internal Medicine; Visit Provider Internal Medicine | DX: B19.20 Unspecified viral hepatitis C without hepatic coma (principal) | CPT/HCPCS: 99212 ==

== ENCOUNTER 2023-08-01 09:53 | Outpatient (REF) | payer MEDICAID, SELFPAY ==
[2023-08-01 11:26] LABS: Thyroid Stimulating Hormone 0.92 uIU/mL (0.32-4.0)
[2023-08-01 11:27] LABS: HIV AB/AG Nonreactive (Nonreactive); HIV Num 1 0.04 S/CO (0.00-0.99)
[2023-08-03 07:09] LABS: HCV Log PCR <1.18 NOT DETECTED Log IU/mL (NOT DETECTED); HepC Viral Load <15 NOT DETECTED IU/mL (NOT DETECTED)
== END 2023-08-01 09:54 | disposition home or self-care (01) ==
LOC: HO.LAB 09:53
PROVIDERS: PCP Internal Medicine; Referring Provider Internal Medicine; Visit Provider Internal Medicine
DX: B18.2 Chronic viral hepatitis C (principal); R63.4 Abnormal weight loss
CPT/HCPCS: 36415; 84443; 87389; 87522

== ENCOUNTER 2023-08-08 13:29 | Outpatient (AMB) | payer MEDICAID, SELFPAY ==
[2023-08-08 13:38] VITALS: PULSE 107; O2SAT 98; BMI 18.0
--- NOTE | 2023-08-08 13:38 | MHC.OFFVIS ---
Vital Signs 08/08/23 13:38 Height 5 ft 4 in Weight 105 lb BMI 18.0 Pulse 107 H Pulse Source Pulse Oximeter Pulse Oximetry (%) 98 Intake Visit Reasons: follow up hepc labs/medi Allergies Penicillins Allergy (Intermediate, Verified 08/09/23 09:54) Rash HPI HPI follow up hepc labs/medi: Details: She is doing well. Her Hepatitis C viral load is undetectable on Mavyret on 07/31, She is HIV negative and takes preventive Truvada PFSH Medical History Schizo affective schizophrenia Depression Anxiety Surgical History Hx of tubal ligation Hx of tonsillectomy S/P thyroid surgery Family History Sister Breast cancer Mother Alzheimer disease Father Prostate cancer Social History Household Members: None Housing: Apartment Alcohol intake: current Alcohol intake frequency: holidays/special occasions only Alcohol type: beer Patient Tobacco Use Status: Current everyday Tobacco user Cigarettes Per Day: 7 Years Smoked: 25 Current occupational status: disabled Sexual orientation: Straight/Heterosexual Gender identity: Female Review of Systems Const All systems reviewed & are unremarkable except as noted in HPI and below Physical Exam Vital Signs: Last Vital Signs Pulse 107 H 08/08/23 13:38 Pulse Ox 98 08/08/23 13:38 BMI result Body Mass Index 18.0 Const General: cooperative Orientation/consciousness: patient oriented x3 HEENT Head: Yes normal to inspection Mouth: Normal oral and palatal mucosa present Eyes General: appearance normal, both eyes and all related structures Pupils: Equal, round and reactive pupils present Resp Effort & Inspection: normal respiratory effort Cardio Rate: regular rate Rhythm: regular rhythm GI Palpation (GI): Soft to palpation and nontender General: Yes no CVA tenderness Back/Spine/Pelvis Back: no CVA tenderness Skin General skin exam: no rashes or lesions noted Neuro General: patient oriented x3 Cranial nerves: Yes CN's II-XII intact bilaterally and Yes Equal, round and reactive pupils present Extrem General: Yes normal to inspection Psych Appearance: grossly normal Assessment & Plan Assessment & Plan (1) Hepatitis C: Comment: She needs to finish Mavyret, Her fibrosis score is F0. Code(s): B19.20 - Unspecified viral hepatitis C without hepatic coma Category: Medical Plan: Check viral load Hepatitis C and HIV 3 months and see patient Orders: Orders HIV Ab/Ag 3 Months B19.20 - Unspecified viral hepatitis C without hepatic coma Hepatitis C Viral Load 3 Months B19.20 - Unspecified viral hepatitis C without hepatic coma Syphilis Screen 3 Months B19.20 - Unspecified viral hepatitis C without hepatic coma Coding Level of Care Code Est Pt Level 3 (77791) Diagnoses Hepatitis C B19.20
== END 2023-08-08 14:27 | disposition home or self-care (01) ==
PROVIDERS: PCP Internal Medicine; Referring Provider Internal Medicine; Visit Provider Internal Medicine
DX: B19.20 Unspecified viral hepatitis C without hepatic coma (principal)
CPT/HCPCS: 99213

== ENCOUNTER → 2023-08-08 13:29 | Outpatient (BNVA) | payer MEDICAID, SELFPAY | PROVIDERS: PCP Internal Medicine; Visit Provider Internal Medicine | DX: B19.20 Unspecified viral hepatitis C without hepatic coma (principal) | CPT/HCPCS: 99212 ==

== ENCOUNTER 2023-08-09 09:48 | Outpatient (AMB) | payer MEDICAID, SELFPAY ==
[2023-08-09 09:53] VITALS: BP 120/72; BMI 17.8
--- NOTE | 2023-08-09 09:53 | A.OFFVIS_ITS ---
Vital Signs 08/09/23 09:53 Height 5 ft 4 in Weight 104 lb BMI 17.8 BP 120/72 Intake Visit Reasons: 3 month MIGUEL ÁNGEL Manager Stone Required: Yes Manager Stone Language: Network Technician Name: Yamini Allison Information Interpreted: non-clinical & clinical Spin Table Operator: Spin Table Operator Present (Yamini) Allergies Penicillins Allergy (Intermediate, Verified 08/09/23 09:54) Rash Is last menstrual period known: No Post menopausal: Yes HPI Comments Details: Presenting for 3 months test of cure. The patient had Trichomonas positive in 05/04/2023, after treatment Trichomonas test of cure was negative in 05/11 . No complaints PFSH Medical History Schizo affective schizophrenia Depression Anxiety Surgical History Hx of tubal ligation Hx of tonsillectomy S/P thyroid surgery Family History Sister Breast cancer Mother Alzheimer disease Father Prostate cancer Social History Household Members: None Housing: Apartment Alcohol intake: current Alcohol intake frequency: holidays/special occasions only Alcohol type: beer Patient Tobacco Use Status: Current everyday Tobacco user Cigarettes Per Day: 7 Years Smoked: 25 Current occupational status: disabled Sexual orientation: Straight/Heterosexual Gender identity: Female Female Reproductive History Menstrual control method: permanent sterilization Date of last pap smear: 11/19/21 (negative) Review of Systems Const All systems reviewed & are unremarkable except as noted in HPI and below Physical Exam Vital Signs: Last Vital Signs BP 120/72 08/09/23 09:53 BMI result Body Mass Index 17.8 General: Yes no CVA tenderness External Female Exam: normal external appearance and normal appearance of the urethra Speculum Exam - Vagina: normal appearance of the vagina, normal palpation, no lesions and no masses Speculum Exam - Cervix: normal appearance of the cervix, normal palpation, no lesions, no masses and nontender Bimanual exam- vagina & uterus: normal bimanual exam, normal palpation, uterine size normal, normal palpation, uterine shape normal, No Cervical tenderness present and non-tender Bimanual Exam- Adnexa, other: normal adnexae Back/Spine/Pelvis Back: no CVA tenderness Assessment & Plan Assessment & Plan (1) Trichomonas infection: Comment: Treated for test of cure Code(s): A59.9 - Trichomoniasis, unspecified Category: Medical Plan: GC/CT with BV panel collected. Coding Level of Care Code Est Pt Level 3 (16997) Diagnoses Trichomonas infection A59.9
== END 2023-08-09 10:58 | disposition home or self-care (01) ==
LOC: HO.HWS 09:48
PROVIDERS: PCP Internal Medicine; Referring Provider Internal Medicine; Visit Provider Obstetrics & Gynecology
DX: A59.9 Trichomoniasis, unspecified (principal)
CPT/HCPCS: 99213

== ENCOUNTER 2023-08-09 09:48 | Outpatient (REF) | payer MEDICAID, SELFPAY ==
[2023-08-09 17:39] LABS: CT PCR NOT DETECTED (Not Detect.); NG PCR NOT DETECTED (Not Detect.)
[2023-08-10 15:03] LABS: BV Int Neg Control Negative (Negative); BV Int Pos Control Positive (Positive)
== END 2023-08-09 09:49 | disposition home or self-care (01) ==
LOC: HO.LNP 09:48
PROVIDERS: PCP Internal Medicine; Visit Provider Obstetrics & Gynecology
DX: A59.9 Trichomoniasis, unspecified (principal)
CPT/HCPCS: 0353U; 87480; 87510; 87660; 99212

== ENCOUNTER 2023-08-24 08:28 | Outpatient (REF) | payer MEDICAID, SELFPAY ==
[2023-08-24 08:49] LABS: MANUAL DIFF FLAG NO
[2023-08-24 08:59] LABS: Basophils Absolute Auto 0.1 X10*3/uL (0.0-0.2); Basophils Percent Auto 1.1 % (0-2); Eosinophils Absolute Auto 0.2 X10*3/uL (0.0-0.4); Eosinophils Percent Auto 2.7 % (0-4); Hematocrit 33.3 % (37.0-47.0); Hemoglobin 11.6 g/dl (12.0-16.0); Imm Gran Abs Auto 0.02 X10*3/uL (0.00-0.03); Imm Gran Pct Auto 0.2 % (0.0-0.4); Lymphocytes Absolute Auto 3.6 X10*3/uL (1.2-4.9); Lymphocytes Percent Auto 40.9 % (20-40); Mean Corpuscular HGB Conc 34.8 g/dl (31.0-35.0); Mean Corpuscular Hemoglobin 31.4 pg (27.0-33.0); Mean Platelet Volume 8.9 fL (9.4-12.3); Monocytes Absolute Auto 0.5 X10*3/uL (0.1-1.2); Neutrophils Absolute Auto 4.3 x10*3/uL (2.0-8.3); Neutrophils Percent Auto 49.1 % (45-73); Platelet Count 451 X10*3/uL (160-400); Red Cell Distribution Width 15.9 % (11.0-16.0); White Blood Count 8.8 X10*3/uL (4.8-10.8)
[2023-08-24 09:43] LABS: Estimated Average Glucose 131 mg/dL; Hemoglobin A1c % 6.2 % (<6.0)
[2023-08-24 09:45] LABS: Microalbum/Creatinine Ratio Ur 39.1 ug/mg cr (<30)
[2023-08-24 09:48] LABS: Alanine Aminotransferase 10 U/L (0-31); Alkaline Phosphatase 47 U/L (39-117); Anion Gap 10 (12-20); Aspartate Amino Transferase 11 U/L (5-31); Bilirubin Total 0.3 mg/dL (0.0-1.0); Blood Urea Nitrogen 15 mg/dL (9-16); Calcium 9.5 mg/dL (8.4-10.2); Carbon Dioxide 30 mmol/L (22-29); Chloride 102 mmol/L (96-108); Cholesterol 170 mg/dL (<200); Estimated Glomerular Filt Rate > 60; Glucose Random 128 mg/dL (60-115); HDL Cholesterol 68 mg/dL (>40); LDL Cholesterol Calculated 87 mg/dL (<100); Potassium 4.3 mmol/L (3.3-5.1); Sodium 138 mmol/L (135-145); Total Protein 7.4 g/dL (6.5-8.0); Triglycerides 79 mg/dL (<150)
[2023-08-24 09:49] LABS: Alanine Aminotransferase 11 U/L (0-31); Albumin Level 4.1 g/dL (3.5-5.0); Alkaline Phosphatase 47 U/L (39-117); Anion Gap 10 (12-20); Aspartate Amino Transferase 12 U/L (5-31); Bilirubin Total 0.3 mg/dL (0.0-1.0); Blood Urea Nitrogen 15 mg/dL (9-16); Calcium 9.4 mg/dL (8.4-10.2); Carbon Dioxide 30 mmol/L (22-29); Chloride 102 mmol/L (96-108); Estimated Glomerular Filt Rate > 60; Glucose Random 128 mg/dL (60-115); Potassium 3.8 mmol/L (3.3-5.1); Sodium 138 mmol/L (135-145); Total Protein 7.5 g/dL (6.5-8.0)
[2023-08-24 10:05] LABS: Ferritin 11 ng/mL (10-250); Thyroid Stimulating Hormone 2.61 uIU/mL (0.32-4.0)
[2023-08-24 10:06] LABS: Vitamin D 25-OH Total 33.3 ng/mL (>30)
[2023-08-24 11:10] LABS: Vitamin B12 668 pg/mL (200-900)
== END 2023-08-24 08:29 | disposition home or self-care (01) ==
LOC: HO.LAB 08:28
PROVIDERS: Absent Provider Nurse Practitioner Psychiatric/Mental Health; PCP Internal Medicine; Visit Provider Internal Medicine
DX: D64.89 Other specified anemias (principal); E11.9 Type 2 diabetes mellitus without complications; E89.1 Postprocedural hypoinsulinemia; F14.24 Cocaine dependence with cocaine-induced mood disorder; Z72.0 Tobacco use
CPT/HCPCS: 36415; 80053; 80061; 82043; 82306; 82570; 82607; 82728; 82746; 83036; 84443; 85025

== ENCOUNTER 2023-09-06 12:56 | Outpatient (AMB) | payer MEDICAID, SELFPAY ==
--- NOTE | 2023-09-06 12:57 | A.OFFVIS_ITS ---
Vital Signs 09/06/23 13:02 Height 5 ft 4 in Weight 102 lb 9.876 oz BMI 17.6 BP 150/77 H Blood Pressure Location Lt brachial Position Sitting Pulse 80 Intake Visit Reasons: Colonoscopy Screening Intake Note: Lorenza presents in the office as a colonoscopy screening. CC: She states that she wants to have a check up on everything, her liver and her tongue. Periodicals Clerk Required: Yes Periodicals Clerk Name: Siddharth [email or web address] Allergies Penicillins Allergy (Intermediate, Verified 09/06/23 13:04) Rash HPI HPI Colonoscopy Screening: Details: 53 year old? female with past medical history of hep C, GERD, schizophrenia, diabetes is here today for pre colonoscopy screening.? Patient was sent to us by her PCP.? Last colonoscopy 5 years ago, patient unsure if she had polyps or not. Patient is not a very good historian. Here with her friend who knows her medical and personal history. 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 Tested recently for hep C. Currently on treatment. Patient is also taking Truvada as preventative due to her lifestyle. Has been having trouble swallowing. Patient reports bumpy tongue. Currently is taking omeprazole 20 mg daily. ? ? Denies any personal or family history of gastrointestinal disease, colon polyps, or CRC.? Denies history of difficulty with sedation or anesthesia in the past.? Negative for history of sleep apnea.? Patient denies any cardiac or respiratory symptoms.?? No history of infectious? diseases like hepatitis A, B, HIV or tuberculosis.? History of hep C currently on treatment, negative viral load. Patient is not on any anticoagulation PFSH Medical History Schizo affective schizophrenia Depression Anxiety Surgical History Hx of tubal ligation Hx of tonsillectomy S/P thyroid surgery Family History Sister Breast cancer Mother Alzheimer disease Father Prostate cancer Social History Household Members: None Housing: Apartment Alcohol intake: current Alcohol intake frequency: holidays/special occasions only Alcohol type: beer Patient Tobacco Use Status: Current everyday Tobacco user Cigarettes Per Day: 7 Years Smoked: 25 Current occupational status: disabled Sexual orientation: Straight/Heterosexual Gender identity: Female Review of Systems Const Denies weight gain and Denies weight loss ENT Reports no additional complaints, Reports dysphagia and Denies odynophagia Card Reports no additional complaints Resp Reports no additional complaints GI Denies abdominal pain, Denies belching, Denies melena, Reports bloating, Denies change in bowel habits, Reports constipation (Using laxatives), Reports dysphagia, Denies excessive flatus, Denies dyspepsia, Reports heartburn, Denies diarrhea, Denies loose stools, Denies nausea, Denies odynophagia and Denies vomi ting Reports no additional complaints Musc Reports no additional complaints Neuro Reports no additional complaints Psych Reports no additional complaints Endo Reports no additional complaints Physical Exam Vital Signs: Last Vital Signs Pulse 80 09/06/23 13:02 BP 150/77 H 09/06/23 13:02 BMI result Body Mass Index 17.6 Const General: healthy appearing, no acute distress and well developed Nutritional Appearance: well nourished Orientation/consciousness: patient oriented x3 HEENT Head: Yes normal to inspection Teeth and gingiva: abnormal dentition (No teeth ) Throat: Yes other (tongue full of cyst like ) Resp Effort & Inspection: normal respiratory effort, able to speak in complete sentences, no tracheal deviation and symmetric chest movement Auscultation: clear to auscultation bilaterally Cardio Rate: regular rate GI Inspection: Yes normal to inspection and No distended Palpation (GI): Soft to palpation, not firm, nontender and No hepatosplenomegaly present Auscultation: normal bowel sounds General: Yes no CVA tenderness Back/Spine/Pelvis Back: no CVA tenderness Skin General skin exam: elasticity normal, turgor normal and dry skin Neuro General: patient oriented x3 Psych Appearance: grossly normal Mental Status: mental status grossly normal Results Reviewed Results Reviewed: US IMPRESSION: * Shear wave liver elastography reveals a median stiffness of 1.54 m/s (reference: normal median stiffness is 1.3 m/s or less). In the absence of other known clinical signs, this rules out compensated advanced chronic liver disease. * 1.9 cm benign cyst of the liver. * Cholelithiasis without evidence of cholecystitis or biliary tract obstruction. Assessment & Plan Assessment & Plan (1) Screen for colon cancer: Code(s): Z12.11 - Encounter for screening for malignant neoplasm of colon (2) Hepatitis C: Comment: She needs to finish Mavyret, Her fibrosis score is F0. Code(s): B19.20 - Unspecified viral hepatitis C without hepatic coma Category: Medical Qualifiers: Viral hepatitis chronicity: carrier Qualified Code(s): B18.2 - Chronic viral hepatitis C (3) Mouth pain: Code(s): K13.79 - Other lesions of oral mucosa (4) Jaw pain: Code(s): R68.84 - Jaw pain Plan Patient denies any cardiac or respiratory symptoms.? Denies any issues with anesthesia in the past.? Denies any history of sleep apnea.? No history infectious diseases in the past or present.? Not on any anticoagulation therapy.? No family or personal history of colon cancer or polyps.? Patient denies melena, hematochezia, unintentional weight loss or ribbon like stools.? Patient reports dysphagia and occasional dyspepsia. Patient will be sent for upper endoscopy when she goes for colonoscopy. Patient does have small cysts like appearing about 4 mm round to the posterior tongue. Patient should be referred to ENT specialist. Patient was also encouraged to call her infection control provider and her OBGYN provider for mouth swabbing to rule out any sexually transmitted infection. Discussed at length the pre-procedure,? prep, diet & medications as well as what to expect prior, during and after the procedure.?? Stressed the importance of good bowel prep.? Recommended the use of Vaseline or Calmoseptine OTC & baby wipes with bowel movements to promote comfort.? ?Both patient and her friend verbalize understanding and agree to plan of care.? They were given the opportunity to ask questions and all questions answered.? We will see her after the procedure.? Thank you for allowing me to participate in her care Medications: New bisacodyl (Dulcolax (bisacodyl)) take 4 tabs at noon the day before your colonoscopy 20 mg (4 x 5 mg) PO ONCE 1 day 4 tabs 0RF Z12.11 - Encounter for screening for malignant neoplasm of colon polyethylene glycol 3350 (Miralax) As directed by gastroenterology department at [facility] 238 grams PO ONCE 238 grams 0RF Z12.11 - Encounter for screening for malignant neoplasm of colon Coding Level of Care Code New Pt Level 4 (43779) Diagnoses Screen for colon cancer Z12.11 Hepatitis C virus carrier state B18.2 Viral hepatitis chronicity: carrier Mouth pain K13.79 Jaw pain R68.84 Time Spent (min) 45 Comment 30 minutes spent with patient and additional 15 minutes spent reviewing her records
[2023-09-06 13:02] VITALS: BP 150/77; PULSE 80; BMI 17.6
== END 2023-09-06 14:14 | disposition home or self-care (01) ==
PROVIDERS: PCP Internal Medicine; Visit Provider Nurse Practitioner Family
DX: Z12.11 Encounter for screening for malignant neoplasm of colon (principal); B18.2 Chronic viral hepatitis C; K13.79 Other lesions of oral mucosa; R68.84 Jaw pain; Z01.818 Encounter for other preprocedural examination
CPT/HCPCS: 99204

== ENCOUNTER → 2023-09-06 12:56 | Outpatient (BNVA) | payer MEDICAID, SELFPAY | PROVIDERS: PCP Internal Medicine; Visit Provider Nurse Practitioner Family | DX: Z12.11 Encounter for screening for malignant neoplasm of colon (principal); B18.2 Chronic viral hepatitis C; K13.79 Other lesions of oral mucosa; R68.84 Jaw pain | CPT/HCPCS: 99212 ==

== ENCOUNTER 2023-11-07 13:35 | Outpatient (REF) | payer MEDICAID, SELFPAY ==
[2023-11-08 04:20] LABS: Syphilis Screen Nonreactive (Nonreactive)
[2023-11-08 04:37] LABS: HIV AB/AG Nonreactive (Nonreactive); HIV Num 1 0.05 S/CO (0.00-0.99)
[2023-11-10 15:18] LABS: HCV Log PCR <1.18 NOT DETECTED Log IU/mL (NOT DETECTED); HepC Viral Load <15 NOT DETECTED IU/mL (NOT DETECTED)
== END 2023-11-07 13:36 | disposition home or self-care (01) ==
LOC: HO.LAB 13:35
PROVIDERS: PCP Internal Medicine; Visit Provider Internal Medicine
DX: B19.20 Unspecified viral hepatitis C without hepatic coma (principal)
CPT/HCPCS: 36415; 86780; 87389; 87522

== ENCOUNTER 2023-11-21 14:05 | Outpatient (AMB) | payer MEDICAID, SELFPAY ==
[2023-11-21 14:04] VITALS: PULSE 97; O2SAT 99; BMI 19.1
--- NOTE | 2023-11-21 14:04 | MHC.OFFVIS ---
Vital Signs 11/21/23 14:04 Height 5 ft 4 in Weight 111 lb BMI 19.1 Pulse 97 Pulse Source Pulse Oximeter Pulse Oximetry (%) 99 Oxygen Delivery Method Room Air Intake Visit Reasons: labs results needed General Practitioner Required: Yes General Practitioner Services: General Practitioner Present General Practitioner Name: Kike No CMA Information Interpreted: clinical only Allergies Penicillins Allergy (Intermediate, Verified 11/21/23 14:05) Rash HPI HPI labs results needed: Details: She presents for followup HIV care. She has negative HIV and syphilis testing. She has been taking Truvada. PFS Medical History Schizo affective schizophrenia Depression Anxiety Surgical History Hx of tubal ligation Hx of tonsillectomy S/P thyroid surgery Family History Sister Breast cancer Mother Alzheimer disease Father Prostate cancer Social History Household Members: None Housing: Apartment Alcohol intake: current Alcohol intake frequency: holidays/special occasions only Alcohol type: beer Patient Tobacco Use Status: Current everyday Tobacco user Cigarettes Per Day: 7 Years Smoked: 25 Current occupational status: disabled Sexual orientation: Straight/Heterosexual Gender identity: Female Review of Systems Const All systems reviewed & are unremarkable except as noted in HPI and below Physical Exam Vital Signs: Last Vital Signs Pulse 97 11/21/23 14:04 Pulse Ox 99 11/21/23 14:04 Oxygen Delivery Method Room Air 11/21/23 14:04 BMI result Body Mass Index 19.1 Const General: cooperative Orientation/consciousness: patient oriented x3 HEENT Head: Yes normal to inspection Mouth: Normal oral and palatal mucosa present Eyes General: appearance normal, both eyes and all related structures Pupils: Equal, round and reactive pupils present Resp Effort & Inspection: normal respiratory effort Cardio Rate: regular rate Rhythm: regular rhythm GI Palpation (GI): Soft to palpation and nontender General: Yes no CVA tenderness Back/Spine/Pelvis Back: no CVA tenderness Skin General skin exam: no rashes or lesions noted Neuro General: patient oriented x3 Cranial nerves: Yes CN's II-XII intact bilaterally and Yes Equal, round and reactive pupils present Extrem General: Yes normal to inspection Psych Appearance: grossly normal Assessment & Plan Assessment & Plan (1) Hepatitis C: Comment: She has undetectable Hepatitis C viral load. She has negative syphilis and HIV testing. She has had unremarkable creatinine on Truvada. Code(s): B19.20 - Unspecified viral hepatitis C without hepatic coma Category: Medical Qualifiers: Viral hepatitis chronicity: carrier Qualified Code(s): B18.2 - Chronic viral hepatitis C Plan: Continue Truvada. Check HIV test and syphilis testing before see in three months. Orders: Orders HIV Ab/Ag 3 Months B18.2 - Chronic viral hepatitis C Medications: New emtricitabine-tenofovir (TDF) 200-300 mg (Truvada) 1 tab PO DAILY 30 tabs 2RF 30 days Coding Level of Care Code Est Pt Level 3 (70868) Diagnoses Hepatitis C virus carrier state B18.2 Viral hepatitis chronicity: carrier
== END 2023-11-21 14:38 | disposition home or self-care (01) ==
LOC: HO.HID 14:05
PROVIDERS: PCP Internal Medicine; Referring Provider Internal Medicine; Visit Provider Internal Medicine
DX: B18.2 Chronic viral hepatitis C (principal)
CPT/HCPCS: 99213

== ENCOUNTER → 2023-11-21 14:05 | Outpatient (BNVA) | payer MEDICAID, SELFPAY | PROVIDERS: PCP Internal Medicine; Visit Provider Internal Medicine | DX: B18.2 Chronic viral hepatitis C (principal); Z79.899 Other long term (current) drug therapy | CPT/HCPCS: 99212 ==

== ENCOUNTER 2023-12-28 18:06 | Outpatient (REF) | payer MEDICAID, SELFPAY ==
[2024-01-02 10:38] LABS: C. Trachomatis RNA TMA, Throat NOT DETECTED; N. gonorrhoeae RNA TMA, Throat NOT DETECTED
== END 2023-12-28 18:07 | disposition home or self-care (01) ==
LOC: HO.HHCLNP 18:06
PROVIDERS: Visit Provider Nurse Practitioner Primary Care
DX: E11.630 Type 2 diabetes mellitus with periodontal disease (principal); Z11.3 Encounter for screening for infections with a predominantly sexual mode of transmission; Z86.73 Personal history of transient ischemic attack (TIA), and cerebral infarction without residual deficits
CPT/HCPCS: 87491; 87591

== ENCOUNTER 2024-01-17 16:22 | Outpatient (REF) | payer MEDICAID, SELFPAY ==
[2024-01-18 11:22] LABS: CT PCR NOT DETECTED (Not Detect.); NG PCR NOT DETECTED (Not Detect.)
[2024-01-18 14:53] LABS: Bacterial Vaginosis PCR POSITIVE (Negative); Candida Group PCR NOT DETECTED (Not Detect); Candida glab krusei PCR NOT DETECTED (Not Detect); Trichomonas vaginalis PCR NOT DETECTED (Not Detect)
[2024-01-21 19:43] LABS: C. Trachomatis RNA TMA, Throat NOT DETECTED; N. gonorrhoeae RNA TMA, Throat NOT DETECTED
[2024-01-23 16:08] LABS: C.Trachomatis RNA TMA, Rectal NOT DETECTED; N.Gonorrhoeae RNA TMA, Rectal NOT DETECTED
== END 2024-01-17 16:23 | disposition home or self-care (01) ==
LOC: HO.HHCLNP 16:22
PROVIDERS: Visit Provider Advanced Practice Midwife
DX: Z11.3 Encounter for screening for infections with a predominantly sexual mode of transmission (principal)
CPT/HCPCS: 0352U; 87491; 87591

== ENCOUNTER 2024-02-21 13:46 | Outpatient (REF) | payer MEDICAID, SELFPAY ==
[2024-02-21 16:44] LABS: Alanine Aminotransferase 18 U/L (0-31); Alkaline Phosphatase 65 U/L (39-117); Anion Gap 12 (12-20); Aspartate Amino Transferase 18 U/L (5-31); Bilirubin Direct < 0.2 mg/dL (0.0-0.5); Bilirubin Total 0.2 mg/dL (0.0-1.0); Blood Urea Nitrogen 19 mg/dL (9-16); Calcium 9.4 mg/dL (8.4-10.2); Carbon Dioxide 28 mmol/L (22-29); Chloride 102 mmol/L (96-108); Cholesterol 145 mg/dL (<200); Estimated Glomerular Filt Rate > 60; Glucose Random 159 mg/dL (60-115); HDL Cholesterol 61 mg/dL (>40); LDL Cholesterol Calculated 67 mg/dL (<100); Potassium 4.1 mmol/L (3.3-5.1); Sodium 138 mmol/L (135-145); Total Protein 7.1 g/dL (6.5-8.0); Triglycerides 86 mg/dL (<150)
[2024-02-21 16:47] LABS: Estimated Average Glucose 126 mg/dL; Hemoglobin A1C 115.3712 umol/L; Total Hemoglobin (HGBA1C) 2741.3708 umol/L
[2024-02-21 16:55] LABS: TSH reflex Free T4 2.37 uIU/mL (0.32-4.0)
[2024-02-22 08:18] LABS: HBc Num1 0.17 S/CO (0.00-0.79); HBsAGNum1 0.28 S/CO (0.00-0.99); Hepatitis B Core Antibody Nonreactive (Nonreactive); Hepatitis B Surface Antigen Negative (Negative); ~Hepatitis B Surface Antibody NONREACTIVE (Nonreactive)
[2024-02-22 08:23] LABS: HIV AB/AG Nonreactive (Nonreactive); HIV Num 1 0.06 S/CO (0.00-0.99)
[2024-02-23 13:09] LABS: RPR Rapid Plasma Reagin NON-REACTIVE (NON-REACTIVE)
== END 2024-02-21 13:47 | disposition home or self-care (01) ==
LOC: HO.HHCL 13:46
PROVIDERS: Advanced Practice Midwife; Nurse Practitioner Primary Care; Visit Provider Internal Medicine
DX: Z11.3 Encounter for screening for infections with a predominantly sexual mode of transmission (principal); Z11.4 Encounter for screening for human immunodeficiency virus [HIV]; B18.2 Chronic viral hepatitis C; E11.630 Type 2 diabetes mellitus with periodontal disease; Z86.73 Personal history of transient ischemic attack (TIA), and cerebral infarction without residual deficits
CPT/HCPCS: 36415; 80048; 80061; 80076; 83036; 84443; 86592; 86704; 86706; 87340; 87389

== ENCOUNTER 2024-04-24 12:05 | Outpatient (REF) | payer MEDICAID, SELFPAY ==
[2024-04-24 13:33] LABS: Estimated Glomerular Filt Rate > 60
[2024-04-24 13:56] LABS: TSH reflex Free T4 2.37 uIU/mL (0.32-4.0)
[2024-04-24 14:14] LABS: HIV AB/AG Nonreactive (Nonreactive); HIV Num 1 0.05 S/CO (0.00-0.99)
[2024-04-25 03:59] LABS: CT PCR NOT DETECTED (Not Detect.); NG PCR NOT DETECTED (Not Detect.)
[2024-04-25 11:10] LABS: Bacterial Vaginosis PCR POSITIVE (Negative); Candida Group PCR DETECTED (Not Detect); Candida glab krusei PCR NOT DETECTED (Not Detect); Trichomonas vaginalis PCR NOT DETECTED (Not Detect)
[2024-04-26 02:33] LABS: Trichomonas vaginalis RNA NOT DETECTED (NOT DETECTED)
[2024-04-26 09:58] LABS: RPR Rapid Plasma Reagin NON-REACTIVE (NON-REACTIVE)
[2024-04-27 10:09] LABS: C.Trachomatis RNA TMA, Rectal NOT DETECTED; N.Gonorrhoeae RNA TMA, Rectal NOT DETECTED
[2024-04-27 20:13] LABS: C. Trachomatis RNA TMA, Throat NOT DETECTED; N. gonorrhoeae RNA TMA, Throat NOT DETECTED
== END 2024-04-24 12:06 | disposition home or self-care (01) ==
LOC: HO.HHCL 12:05
PROVIDERS: Nurse Practitioner Primary Care; Visit Provider Advanced Practice Midwife
DX: Z29.81 Encounter for HIV pre-exposure prophylaxis (principal); Z11.3 Encounter for screening for infections with a predominantly sexual mode of transmission; R30.0 Dysuria; E03.9 Hypothyroidism, unspecified; N76.0 Acute vaginitis; Z79.899 Other long term (current) drug therapy
CPT/HCPCS: 36415; 81515; 82565; 84443; 86592; 87086; 87088; 87186; 87389; 87491; 87591; 87661

== ENCOUNTER 2024-07-17 12:00 | Outpatient (REF) | payer MEDICAID, SELFPAY ==
[2024-07-17 14:12] LABS: Estimated Glomerular Filt Rate > 60
--- OUTSIDE RECORDS SUMMARY | 2024-07-17 14:37 | XMS_ITS | Encounter Summary ---
Author Organization [employer] Address 75 [facility] 7t [place] [address] Care Team Providers Care Dry Chain Puller Name Role Phone Kamla Becerra Primary Care Provider Julien Mckay RN Unavailable [phone] Encounter Details Date Type Department Care Team (Latest Contact Info) Description 07/17/2024 Travel Social History Tobacco Use Types Packs/Day Years Used Date Smoking Tobacco: Every Day Cigarettes Passive Smoke Exposure: Current Smokeless Tobacco: Never Alcohol Use Standard Drinks/Week Comments Yes 2 (1 standard drink = 0.6 oz pure alcohol) pt says she drinks every day..2 beers Alcohol Answer Date Recorded How often do you have a drink containing alcohol ? 4 02/21/2024 How many drinks containing a lcohol do you have on a typical day when you are drinking? 1 02/21/2024 How often do you have six or more drinks on one occasion? 1 02/21/2024 Depression Answer Date Recorded Patient Health Questionnaire-9 Score 24 12/28/2023 Patient Health Questionnaire-9 Score 24 12/28/2023 Last PHQ-9: Questionnaire Data Not on file 0 12/28/2023 Housing Stability Answer Date Recorded What is your housing situation today? I have freya roger 12/28/[address] you li ve. Do you have problems with any of the following? None of the above 12/28/2023 Food Insecurity Answer Date Recorded Within the past 12 months, y ou worried that your food would run out before you got money to buy more: Never True 12/28/2023 Within the past 12 months,th e food you bought just didn't last and you didn't have enough money to get more: Never True Transportation Answer Date Recorded In the past 12 months, has l ack of transportation kept you from medical appts, meetings, work or from getting things needed for daily living? No 12/28/2023 Utilities Answer Date Recorded In the past 12 months, has t he electric, gas, oil or water company threatened to shut off services in your home? No 12/28/2023 Depression Answer Date Recorded Patient Health Questionnaire-2 Score 6 12/28/2023 Internet Access Answer Date Recorded Internet Access Q1 Yes 12/28/2023 Internet Access Q2 Not on file 12/28/2023 Comments No Sex and Gender Information Value Date Recorded Sex Assigned at Female 12/28/2023 2:07 PM EDT Legal Sex Female 3:25 PM EDT Gender Identity Female 12/28/2023 2:07 PM EDT Sexual Orientation Bisexual 12/28/2023 2: 07 PM EDT documented as of this encounter Plan of Treatment Upcoming Encounters Date Type Department Care Team (Late st Contact Info) Description 07/24/2024 1:30 PM EDT Office Visit [address] [address] Kamla Becerra ANP [address] [place] [address] 10/15/2024 11:00 AM EDT Office Visit [address] [address] Mackenzie Mahajan CNM [address] [place] [address] documented as of this encounter Visit Diagnoses Not on filedocumented in this encounter Additional Health Concerns Assessment Noted Time PHQ-9 Depression Total Score: 24 024 2:35 PM EDT documented as of this encounter Care Teams Dry Chain Puller Relationship Specialty Start Date End Date Kamla Becerra ANP [address] [place] [address] PCP - General Family Medicine 12/28/23 Julien Mckay RN [address] [place] [address] Director Hospice OperationsUnit Secy 07/10/24 [facility] 07/09/24 documented as of this encounter
--- OUTSIDE RECORDS SUMMARY | 2024-07-17 14:37 | XMS_ITS | Encounter Summary ---
Author Organization [employer] Address 75 [facility] 7t [place] [address] Care Team Providers Care Financial Compliance Examiner Name Role Phone Kamla Becerra Primary Care Provider [phone] Julien Mckay RN Unavailable [phone] Reason for Visit * Reason Onset Date Comments Call Back Request 06/19/2024 Encounter Details Date Type Department Care Team ([facility] st Contact Info) Description 06/19/[address] [facility] MEDICINE [address] [place], [place] [phone] Kamla Becerra ANP 230 [place], [place] [phone] Call Back Request Social History Tobacco Use Types Packs/Day Years [...] your housing situation today? I have freya duran 12/28/[address] you li [...] PM EDT documented as of this encounter Miscellaneous Notes * Telephone Encounter - Lindsay Mena RN - 06/19/2024 2:59 PM EDT Returned call to [place], visiting nurse for pt. [place] went [place] [facility] [place]24 for right ring finger burn.She was unable to confirm pt's info (she was without tablet during call) but stated that she is looking for PCP to advise on wound care orders for the pt's finger, nothing was given regarding this after she came back from the ED. Stated that the finger is red and looks like a blister that was popped, pt is taking antibiotics and naproxen but still has pain. Cryptographic Machine Operator advised nurse that pt should seek medical attention if signs or symptoms of infection appear or if redness spreads/worsens, reviewedother sxs. VNA also asked C to call pt to schedule ED follow up. Called pt, spoke with Shelley who is on pt's HIPAA and attends appts with her. Given finger is red, booked pt appt with Blue Team provider tomorrow 06/20/24 at 3:45pm. Shelley to come with pt. Reviewed signs and symptoms of infection, NTTS, and WIC extended hours today and tomorrow. Shelley verbalized understanding, asked nurses to call Shelley at [phone] to inform about appt. Called pt at this new number, no answer, left voicemail to call back [facility]. * Telephone Encounter - Angelo Lebron - 06/19/2024 11:31 AM EDT Tc from [facility] the Home Care Nurse for there pt requesting a call back to Discuss taking care of wounds. Contact pt at [phone] documented in this encounter Plan of Treatment Upcoming Encounters Date Type Department Care Team (Late st Contact Info) Description 07/24/2024 1:30 PM EDT Office Visit [facility] MEDICINE [address] [place] [address] Kamla Becerra ANP [address] [place] [address] 10/15/2024 11:00 AM EDT Office Visit [facility] MEDICINE [address] [place] [address] Mackenzie Mahajan CNM [address] [place] [address] documented as of this encounter Visit Diagnoses Not on filedocumented in this encounter Additional Health Concerns Assessment Noted Time PHQ-9 Depression Total Score: 24 024 2:35 PM EDT documented as of this encounter Care Teams Financial Compliance Examiner Relationship Specialty Start Date End Date Kamla Becerra ANP [address] [place] [address] PCP - General Family Medicine 12/28/23 Julien Mckay RN [address] [place] [address] [place] [address] Operations AgentMortgage Manager 07/10/24 [facility] 07/09/24 documented as of this encounter
--- OUTSIDE RECORDS SUMMARY | 2024-07-17 14:37 | XMS_ITS | Encounter Summary ---
Author Organization [employer] Address 75 [facility] 7t [place] [address] Care Team Providers Care Accounting Recruiter Name Role Phone Kamla Becerra Primary Care Provider [phone] Julien Mckay RN Unavailable [phone] Reason for Visit * Reason Onset Date Comments Durable Medical Equipment 07/16/2024 Encounter Details Date Type Department Care Team ([facility] st Contact Info) Description 07/16/2024 Telephone [facility] MED & PEDS [address] [place], [place] [phone] Kamla Becerra ANP 230 [place] [address] Durable Medical Equipment Social History Tobacco Use Types Packs/Day Years [...] encounter Miscellaneous Notes * Telephone Encounter - Teresa Cruz MA - 07/17/2024 11:26 AM EDT DME for Boost signed and faxed to Leonardo . Confirmation received and sent to scan. If patient calls to check status on above, please advise them to contact Leonardo at [phone]. * Telephone Encounter - Teresa Cruz MA - 07/16/2024 11:36 AM EDT DME for Boost from Leonardo received and is being processed. Placed on provider's desk for signature. documented in this encounter Plan of Treatment Upcoming Encounters Date Type Department Care Team (Late st Contact Info) Description 07/24/2024 1:30 PM EDT Office Visit [facility] MEDICINE [address] [place], [place] [phone] Kamla Becerra ANP 230 [place] [address] 10/15/2024 11:00 AM EDT Office Visit [facility] MEDICINE [address] [place], [place] [phone] Mackenzie Mahajan CNM [address] [place], [place] [phone] documented as of this encounter Visit Diagnoses Not on filedocumented in this encounter Additional Health Concerns Assessment Noted Time PHQ-9 Depression Total Score: 24 024 2:35 PM EDT documented as of this encounter Care Teams Accounting Recruiter Relationship Specialty Start Date End Date Kamla Becerra ANP 230 [place], [place] [phone] PCP - General Family Medicine 12/28/23 Julien Mckay, YARI [address] [place] [address] Section Leader And Machine SetterRn Training 07/10/24 [facility] 07/09/24 documented as of this encounter
--- OUTSIDE RECORDS SUMMARY | 2024-07-17 14:37 | XMS_ITS | Encounter Summary ---
Author Organization [employer] Address 75 [facility] 7t [place] [address] Care Team Providers Care Talkback Host Name Role Phone Kamla Becerra Primary Care Provider Julien Mckay RN Unavailable [phone] Reason for Visit * Reason Comments Care Coordination SDOH/appt reminder Encounter Details Date Type Department Care Team (Latest Contact Info) Description 07/16/2024 Patient Outreach [facility] MEDICINE [address] [place], [place] [phone] Kamla Becerra ANP 230 [place] [address] Care Coordination (SDOH/appt reminder) Social History Tobacco Use Types Packs/Day Years [...] PM EDT documented as of this encounter Progress Notes * Alisa No - 07/16/2024 9:08 AM EDT CHW Alisa No placed outbound call to patient in regards to SDOH and appt reminder. No answer at this time. LVM introducing herself from [facility] CM Department, reminding patient ofappointment on 07/17/24 @ 11AM at [facility]. Requested call back to or CM , as well as for any additional questions or concerns. documented in this encounter Plan of Treatment Upcoming Encounters Date Type Department Care Team (Late st Contact Info) Description 07/24/2024 1:30 PM EDT Office Visit [facility] MEDICINE [address] [place] [address] Kamla Becerra ANP 230 [place] [address] 10/15/2024 11:00 AM EDT Office Visit [facility] MEDICINE [address] [place], [place] [phone] Mackenzie Mahajan CNM [address] [place], [place] [phone] documented as of this encounter Visit Diagnoses Not on filedocumented in this encounter Additional Health Concerns Assessment Noted Time PHQ-9 Depression Total Score: 24 024 2:35 PM EDT documented as of this encounter Care Teams Talkback Host Relationship Specialty Start Date End Date Kamla Becerra ANP [address] [place], [place] [phone] PCP - General Family Medicine 12/28/23 Julien Mckay RN [address] [place] [address] Geological AideVba Programmer 07/10/24 [facility] 07/09/24 documented as of this encounter
--- OUTSIDE RECORDS SUMMARY | 2024-07-17 14:37 | XMS_ITS | Clinical Summary ---
Author Organization [facility] Address [address] [place] [address] Phone Care Team Providers Care Marble Polisher Name Role Phone Kamla Becerra NP Primary Care Provider [phone] Allergies Active Allergy Reactions Criticality Noted Date Comments Penicillins Rash Low 12/28/2023 Medications acetaminophen (TYLENOL) 325 mg tablet Take 2 tabs as needed for pain every 4-6 hrs for pain 06/21/19 25 Active blood sugar diagnostic (FreeStyle Lite Strips) test strip 06/22/19 25 Active cephalexin (KEFLEX) 250 mg capsule Take 1 capsule (250 mg total) by mouth 2 times daily. 06/19/19 25 Active cyclobenzaprine (FLEXERIL) 5 mg tablet Take 1 tablet (5 mg total) by mouth 3 times daily as needed. 07/03/19 25 Active emtricitabine-teno fovir disoproxil fumarate (TRUVADA) 200-300 mg per tablet Take 1 tablet by mouth daily. 04/24/19 25 Active estradioL (ESTRACE) 0.01 % (0.1 mg/gram) vaginal cream 1g (one fingertip) vaginally x 14d, then twice weekly thereafter 04/24/19 25 Active hydrOXYzine HCL (ATARAX) 50 mg tablet 06/12/19 25 Active lactulose (CHRONULAC) solution 11/15/19 24 Active Pure Comfort Safety Lancets 30 gauge misc 06/20/19 25 Active lidocaine (LIDODERM) 5 % patch APPLY 1 PATCH TOPICALLY EVERY DAY. REMOVE PATCH AND DISCARD AFTER 12 HOURS OR DIRECTED BY . 12/14/19 24 Active lurasidone (LATUDA) 60 mg tablet 05/22/19 25 Active metroNIDAZOLE (FLAGYL) 500 mg tablet 04/24/19 25 Active Tab-A-Jeannine 400 mcg tablet 07/07/19 25 Active naltrexone (DEPADE) 50 mg tablet 08/18/19 23 Active naproxen (NAPROSYN) 500 mg tablet 10/19/19 24 Active ondansetron ODT (ZOFRAN-ODT) 4 mg disintegrating tablet DISSOLVE 1 TABLET ON THE TONGUE 3 TIMES A DAY NEEDED FOR NAUSEA 06/19/19 25 Active omeprazole (PriLOSEC) [address] capsule 12/13/19 24 Active senna-docusate (PERICOLACE) 8.6-50 mg per tablet 09/21/19 24 Active sulfamethoxazole-t rimethoprim (BACTRIM DS,SEPTRA DS) 800-160 mg per tablet 06/19/19 25 Active thiamine 100 mg tablet 07/04/19 25 Active traZODone (DESYREL) 100 mg tablet Take 2 tablets (200 mg total) by mouth. 06/30/19 23 Active clotrimazole 1 % lotion Apply 1 Application topically at bedtime. 30 mL 3 07/11/19 25 025 Active Encounters Date Type Department Care Team Description 07/10/2024 2:30 PM EDT Consult Orthopedic Surgery [address] [address] Musa Camara, DPM Dermatophytosis of nail (Primary Dx); Tinea pedis of both feet; Pain in toe of left foot; Pain in toe of right foot; Diabetic mononeuropathy simplex (CMS/HCC) from Last 3 Months Family History Medical History Relation Name Comments Breast cancer Maternal Grandmother Breast cancer Sister Relation Name Status Comments Maternal Grandmother Sister Social History Tobacco Use Types Packs/Day Years Used Date Smoking Tobacco: Never Assessed Comments No Sex and Gender Information Value Date Recorded Sex Assigned at Not on file Legal Sex Female 1:01 PM EST Gender Identity Not on file Sexual Orientation Not on file Obstetrics History Para Term AB IAB SAB Ectopic Multiple Livin g Live Births 4 Last Filed Vital Signs Vital Sign Reading Time Taken Comments Blood Pressure - - Pulse - - Temperature - - Respiratory Rate - - Oxygen Saturation - - Inhaled Oxygen Concentration - - Weight 49.4 kg (109 lb) 03/21/2024 10:59 AM EST Height 162.6 cm (5' 4 ) 03/21/2024 10:59 AM EST Body Mass Index 18.71 03/21/2024 10:59 AM EST Plan of Treatment Upcoming Encounters Date Type Department Care Team (Late st Contact Info) Description 10/16/2024 1:15 PM EDT Office Visit Orthopedic Surgery - [place] [address] [phone] Musa Camara, DPM [address] [address] Health Maintenance Due Date Last Done Comments Diabetes: Annual Foot Exam 1978 Diabetes: Annual Retina Eye Exam 1978 Hepatitis A Vaccines (1 of 2 - Risk 2-dose series) 1987 Hepatitis B Vaccines (1 of 3 - 19+ 3-dose series) 1987 Zoster Vaccines (1 of 2) 2018 Colorectal Cancer Screening: Colonoscopy 03/09/2022 Hepatitis C Screening 03/09/2022 Social Influencers of Health Screening 03/09/2022 Diabetes: Annual Urine Albumin-Creatinine Ratio (uACR) 07/11/2024 Diabetes: Blood Sugar Control Test (HGBA1C) 08/20/2024 02/21/2024 Cervical Cancer Screening: Pap Smear 11/17/2024 11/17/2021 Depression Screening 12/27/2024 12/28/2023 Diabetes: Annual GFR (Glomerular Filtration Rate) 02/20/2025 02/21/2024 Hypertension/CHF/CAD Annual BMP Blood Test 02/20/2025 02/21/2024 Breast Cancer Screening 03/21/2026 03/21/2024, 07/16 Cholesterol Screening (Lipid Panel) 02/20/2029 02/21/2024 DTaP,Tdap,and Td Vaccines (2 - Td or Tdap) 12/27/2033 12/28/2023 Pneumococcal Vaccine: 50+ Years Completed 12/28/2023, 01/20/2020 Pneumococcal Vaccine: Pediatrics (0 to 5 Years) and At-Risk Patients (6 to 64 Years) Completed 12/28/2023, 01/20/2020 COVID-19 Vaccine Completed 02/21/2024, 04/2021, 12/31/2021, Additional history exists Influenza Vaccine Completed 02/21/2024, , 03/30/2018 HIV Screening Completed 04/24/2024 HIB Vaccines Aged Out No longer eligi ble based on patient's age to complete this topic HPV Vaccines Aged Out No longer eligi ble based on patient's age to complete this topic IPV Vaccines Aged Out No longer eligi ble based on patient's age to complete this topic MMR Vaccines Aged Out No longer eligi ble based on patient's age to complete this topic Meningococcal ACWY Vaccine Aged Out N o longer eligible based on patient's age to complete this topic Meningococcal B Vaccine Aged Out No l onger eligible based on patient's age to complete this topic RSV Immunization Patients Under 20 months Aged Out No longer eligible based on patient's age to complete this topic Varicella Vaccines Aged Out No longer eligible based on patient's age to complete this topic Procedures Procedure Name Priority Date/Time Associated Diagnosis Comments MG MAMMO DIGITAL SCREENING W EMILIO BILAT Routine 03/21/2024 11:08 AM EST Breast screening from Last 3 Months or Most Recently Relevant to Health Maintenance Results * MG Mammo Digital Screening w Emilio bilat (03/21/2024 11:08 AM EST) Anatomical Region Laterality Modality Breast Bilateral Mammography 03/21/2024 6:00 PM EST Impressions 03/21/2024 6:06 PM EST No mammographic evidence of malignancy. ?? No suspicious interval change. A negative mammogram in the presence of a clinically suspicious palpable abnormality does not preclude the possibility of malignancy or alter the indications for biopsy. ASSESSMENT: ?? BI-RADS 2: BENIGN RECOMMENDATION(S): 1: Routine screening mammogram BILATERAL in 1 year. -------- FINAL REPORT -------- Dictated By: Reji Bills Dictated Date: 03/21/2024 18:00 ET Assigned Physician: Reji Bills Reviewed and Electronically Signed By: Reji Bills Signed Date: 03/21/2024 18:06 ET Workstation ID: [id number] Transcribed By: Self Edit Transcribed Date: 03/21/2024 18:00 ET Narrative 03/21/2024 6:06 PM EST EXAM: ??SCREENING MAMMOGRAPHY, BILATERAL HISTORY: ??SCREENING. ??Family history of breast cancer, sister and maternal grandmother COMPARISON: ??01/20/2022, 07/15/2020 TECHNIQUE: Synthesized CC and MLO projections of each breast. ??Tomosynthesis of each breast in the CC and MLO projections. ADDITIONAL IMAGING: Craniocaudal view of the left breast exaggerated toward the axilla using Tomosynthesis Computer-aided detection was employed with the iCAD ??profound AI 3-D. TISSUE DENSITY: The breasts are heterogeneously dense, which may obscure small masses. (BI-RADS category C) FINDINGS: RIGHT BREAST: No suspicious mass. No suspicious calcification. No distortion. ?? No additional suspicious right breast findings LEFT BREAST: There are several rounded amorphous calcifications in the upper outer left breast. ??These appear similar to previous studies. ??These can be monitored at the time of annual screening. ??No additional suspicious left breast findings Procedure Note Reji Bills MD - 03/21/2024 EXAM: SCREENING MAMMOGRAPHY, BILATERAL HISTORY: SCREENING. Family history of breast cancer, sister and maternalgrandmother COMPARISON: 01/20/2022, 07/15/2020 TECHNIQUE: Synthesized CC and MLO projections of each breast.Tomosynthesis of each breast in the CC and MLO projections. ADDITIONAL IMAGING: Craniocaudal view of the left breast exaggeratedtoward the axilla using Tomosynthesis Computer-aided detection was employed with the iCAD profound AI 3-D. TISSUE DENSITY: The breasts are heterogeneously dense, which may obscuresmall masses. (BI-RADS category C) FINDINGS: RIGHT BREAST: No suspicious mass. No suspicious calcification. No distortion. Noadditional suspicious right breast findings LEFT BREAST: There are several rounded amorphous calcifications in the upper outer leftbreast. These appear similar to previous studies. These can be monitoredat the time of annual screening. No additional suspicious left breastfindings IMPRESSION: No mammographic evidence of malignancy. No suspicious interval change. A negative mammogram in the presence of a clinically suspicious palpableabnormality does not preclude the possibility of malignancy or alter theindications for biopsy. ASSESSMENT: BI-RADS 2: BENIGN RECOMMENDATION(S): 1: Routine screening mammogram BILATERAL in 1 year. -------- FINAL REPORT -------- Dictated By: Reji Bills Dictated Date: 03/21/2024 18:00 ET Assigned Physician: Reji Bills Reviewed and Electronically Signed By: Reji Bills Signed Date: 03/21/2024 18:06 ET Workstation ID: [id number] Transcribed By: Self Edit Transcribed Date: 03/21/2024 18:00 ET Mackenzie Mahajan CNM IMG BI PROCEDURES Final R esult from Last 3 Months or Most Recently Relevant to Health Maintenance Insurance MEDICAID - [place] Care Teams Marble Polisher Relationship Specialty Start Date End Date Kamla Becerra NP [address] [phone] PCP - General 03/01/24
--- OUTSIDE RECORDS SUMMARY | 2024-07-17 14:37 | XMS_ITS | Encounter Summary ---
Author Organization [employer] Address 75 [facility] 7t [place] [address] Care Team Providers Care Sea Shell Gatherer Name Role Phone Kamla Becerra Primary Care Provider [phone] Julien Mckay RN Unavailable [phone] Reason for Visit * Reason Onset Date Comments Durable Medical Equipment 07/10/2024 Encounter Details Date Type Department Care Team (Late st Contact Info) Description 07/10/2024 Telephone [facility] MEDICINE [address] [place], [place] [phone] Kamla Becerra ANP [address] [place], [place] [phone] Durable Medical Equipment Social History Tobacco Use [...] encounter Miscellaneous Notes * Telephone Encounter - Montse Carnes - 07/13/2024 9:44 AM EDT RX for Boost and grab bars signed and faxed to Leonardo . Confirmation received and sent to scan. If patient calls to check status on above, please advise them to contact Leonardo at [phone]. * Telephone Encounter - Montse Carnes - 07/10/2024 2:27 PM EDT DME RX for Boost and grab bars generated. *Please confirm need for glucerna/boost glucose control without diabetes dx. 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 Thanks! documented in this encounter Plan of Treatment Upcoming Encounters Date Type Department Care Team (Late st Contact Info) Description 07/24/2024 1:30 PM EDT Office Visit [facility] MEDICINE [address] [place] [address] Kamla Becerra ANP [address] [place] [address] 10/15/2024 11:00 AM EDT Office Visit [facility] MEDICINE [address] [place] [address] Mackenzie Mahajan CNM [address] [place] [address] documented as of this encounter Visit Diagnoses Not on filedocumented in this encounter Additional Health Concerns Assessment Noted Time PHQ-9 Depression Total Score: 24 024 2:35 PM EDT documented as of this encounter Care Teams Sea Shell Gatherer Relationship Specialty Start Date End Date Kamla Becerra ANP [address] [place] [address] PCP - General Family Medicine 12/28/23 Julien Mckay, YARI [address] [place] [phone] Shell Shop SupervisorLead Nuclear Medicine Technologist 07/10/24 [facility] 07/09/24 documented as of this encounter
--- OUTSIDE RECORDS SUMMARY | 2024-07-17 14:37 | XMS_ITS | Encounter Summary ---
Author Organization [employer] Address [address] [facility] 7t [place] [address] Care Team Providers Care Emergency Spill Response Technician Name Role Phone Kamla Becerra Primary Care Provider [phone] Julien Mckay RN Unavailable [phone] Reason for Visit * Reason Onset Date Comments Care Management 07/05/2024 C3CM- initial as sessment/ enrollment Encounter Details Date Type Department Care Team (Late st Contact Info) Description 07/05/2024 Telephone [facility] [address] [place], [place] [phone] Kamla Becerra ANP [address] [place] [address] Care Management (C3- initial assessment/ enrollment) Social History Tobacco Use Types Packs/Day Years [...] encounter Miscellaneous Notes * Telephone Encounter - RICKY Gabriel - 07/06/2024 4:32 PM EDT Thank you, have updated last visit note to reflect need for this DME and updated the nutritional supplement request. Have requested rxs from PA specialist. thanks * Telephone Encounter - Julien Mckay RN - 07/05/2024 2:23 PM EDT REGINA Mckay RN, provided notification to PCP RICKY Gabriel of patient's enrollment into C3 Complex Care Program. REGINA Mckay RN, completed care plan and sent to HIM to be scanned into the medical record. PCP notified and awaiting review from provider. CM plan: - assist with scheduling visits with specialists/needs f/u with GI - provide patient with appt reminders and transportation to visits as needed - assist with request for increase/ change in SPORTS TEAM MARKETING INTERN hours - assist with obtaining nutritional supplements and shower bar/additional DME as needed - provide resources based on positive SDOH needs * Telephone Encounter - Julien Mckay RN - 07/05/2024 2:17 PM EDT CM Julien Mckay RN placed outbound call to patient for agreed upon time for initial assessment for enrollment into Adult Care Management Program. Patient's name, , and address were verified. Patient called in her [facility] recruitment and outreach assistant named Nazia Machuca who assisted with providing information during the assessment. Lorenza is a 54 year old female with Hx of smoking, HTN, lumbar radiculopathy,poor vision, hepatic encephalopathy, alcohol dependence, thyroidectomy, tubal ligation, acquired hypothyroidism, partial optic atrophy, and lacunar CVA. Patient reports being followed by Podiatry. She has a f/u appt scheduled on 07/10/24 at 2:30pm. Patient is aware of the visit and denies any barriers to attending. Patient also being followed by [facility]. She sees a therapist and also follows a psychiatrist. Per Nazia, visits are done via Telehealth. She states the patient is scheduled to see psych on07/12/24. Nazia states the patient is also being followed by [facility] who is provided VNA services. Patient is seen on a daily basis for medication management. She states the patient's medications are in lock boxes. CM not able to complete a med rec at this time as patient is not able to provide medication names and does not have a list with her. Patient also reports receiving SPORTS TEAM MARKETING INTERN servicesthrough [facility] in [place]. She states the is receiving about 40 hours/month. Patient statesher SPORTS TEAM MARKETING INTERN usually sees her in the evenings. Per patient, sometimes her SPORTS TEAM MARKETING INTERN is there from 5-6pm to about 10pm. She states her SPORTS TEAM MARKETING INTERN assists her with dressing, toileting, cooking, etc. Patient expresses wanting to receive SPORTS TEAM MARKETING INTERN hours during the day. She states she recently burned her hand by trying to prepare herself a meal during the day time. Patient currently lives alone and does not have any assistance during the day time hours. CM will outreach [facility] to inquire on additional hours. Patient agreeable. Patient also requesting assistance with obtaining nutritional supplements. She states she currently weighs 99lbs. CM noted patient made a request during PCP visit on 02/2024. CM will f/u on status. Patient is also requesting a shower bar. She states that she has blurry vision as well as issues with her balance. Per patient, PCP is aware. CM will add to appt details so that this can be addressed during the upcoming visit. Patient agrees. Patient states she is established with dental and vision. She states she has an upcoming visit scheduled with [facility]. Patient states sheis a current smoker. She states she drinks alcohol and also reports hx of substance abuse. Per patient, does not want to discuss this further at this time stating these are personal questions. Patient is requesting assistance with food resources. REFUGIO Cuellar will outreach to assist. Nazia provided contact information and states she can be contacted directly if needed. Her number is [phone]. Care management program explained and contact information given. Patient verbalizes understanding, and able to repeat back to engineering technical writer. A follow up call will be placed within 10 days, patient agrees with plan. documented in this encounter Plan of Treatment Upcoming Encounters Date Type Department Care Team ([facility] st Contact Info) Description 07/24/2024 1:30 PM EDT Office Visit [facility] [address] [place] [address] Kamla Becerra ANP [address] [place] [address] 10/15/2024 11:00 AM EDT Office Visit [facility] [address] [place] [address] Mackenzie Mahajan CNM [address] [place] [address] documented as of this encounter Visit Diagnoses Not on filedocumented in this encounter Additional Health Concerns Assessment Noted Time PHQ-9 Depression Total Score: 24 024 2:35 PM EDT documented as of this encounter Care Teams Emergency Spill Response Technician Relationship Specialty Start Date End Date Kamla Becerra ANP [address] [place] [address] PCP - General Family Medicine 12/28/23 Julien Mckay RN [address] [place] [address] Flight Simulator TeacherCutlery Grinder 07/10/24 [facility] 07/09/24 documented as of this encounter
--- OUTSIDE RECORDS SUMMARY | 2024-07-17 14:37 | XMS_ITS | Encounter Summary ---
Author Organization [employer] Address [address] [facility] 7t [place] [address] Care Team Providers Care Risk Engineer Name Role Phone Kamla Becerra Primary Care Provider [phone] Julien Mckay RN Unavailable [phone] Reason for Visit * Reason Onset Date Comments Call Back Request 06/21/2024 Encounter Details Date Type Department Care Team ([facility] st Contact Info) Description 06/21/2024 Telephone [facility] [address] [place], [place] [phone] Kamla Becerra ANP [address] [place], [place] [phone] Call Back Request (/) Social History Tobacco Use Types Packs/Day Years [...] encounter Miscellaneous Notes * Telephone Encounter - Asia Melendrez RN - 06/21/2024 11:21 AM EDT Call returned to Sara at [facility] who states she received order for wound care. Sara states VNA needs office note to be faxed to either [phone] or [phone]. Sara also requesting clarification of order. Sara asking if provider would like xeroform or some other type of dressing? Asking if provider would like a dry, clean dressing and daily assessment? Advised request will be forwarded to ordering provider. * Telephone Encounter - Little Stephenson - 06/21/2024 10:47 AM EDT Tc from Sara with [facility] requesting a call back from nurses regarding wound care order. [phone] (direct line) documented in this encounter Plan of Treatment Upcoming Encounters Date Type Department Care Team (Late st Contact Info) Description 07/24/2024 1:30 PM EDT Office Visit [facility] [address] [place] [address] Kamla Becerra ANP [address] [place] [address] 10/15/2024 11:00 AM EDT Office Visit [facility] [address] [place], [place] [phone] Mackenzie Mahajan CNM [address] [place], [place] [phone] documented as of this encounter Visit Diagnoses Not on filedocumented in this encounter Additional Health Concerns Assessment Noted Time PHQ-9 Depression Total Score: 24 024 2:35 PM EDT documented as of this encounter Care Teams Risk Engineer Relationship Specialty Start Date End Date Kamla Becerra ANP [address] [place], [place] [phone] PCP - General Family Medicine 12/28/23 Julien Mckay, YARI [address] [place] [address] Paper MakerService Station Equipment Mechanic 07/10/24 [facility] 07/09/24 documented as of this encounter
--- OUTSIDE RECORDS SUMMARY | 2024-07-17 14:37 | XMS_ITS | Encounter Summary ---
Author Organization [employer] Address [address] [facility] 7t [place] [address] Care Team Providers Care Conveyor Attendant Name Role Phone Kamla Becerra Primary Care Provider [phone] Julien Mckay RN Unavailable [phone] Reason for Visit * Reason Comments Med Refill Encounter Details Date Type Department Care Team ([facility] st Contact Info) Description 07/12/2024 Refill [facility] [address] [place], [place] [phone] Kamla Becerra ANP [address] [place] [address] On pre-exposure prophylaxis for HIV Social History Tobacco Use Types Packs/Day Years [...] Description 07/24/2024 1:30 PM EDT Office Visit [facility] [address] [place] [address] Kamla Becerra ANP [address] [place] [address] 10/15/2024 11:00 AM EDT Office Visit [facility] [address] [place] [address] Mackenzie Mahajan CNM [address] [place] [address] documented as of this encounter Visit Diagnoses Diagnosis On pre-exposure prophylaxis for HIV documented in this encounter Additional Health Concerns Assessment Noted Time PHQ-9 Depression Total Score: 24 024 2:35 PM EDT documented as of this encounter Care Teams Conveyor Attendant Relationship Specialty Start Date End Date Kamla Becerra ANP [address] [place] [address] PCP - General Family Medicine 12/28/23 Julien Mckay RN [address] [place] [address] Technical Sales ManagerFermenting Cellars Receiver 07/10/24 [facility] 07/09/24 documented as of this encounter
--- OUTSIDE RECORDS SUMMARY | 2024-07-17 14:37 | XMS_ITS | Encounter Summary ---
Author Organization [employer] Address [address] [facility] 7t [place] [address] Care Team Providers Care Cross Enterprise Integrator Name Role Phone Kamla Becerra Primary Care Provider [phone] Julien Mckay RN Unavailable [phone] Reason for Visit * Reason Comments ghost writer Encounter Details Date Type Department Care Team ([facility] Contact Info) Description 07/17/2024 11:00 AM EDT Office Visit [facility] [address] [place], [place] [phone] Mackenzie Mahajan CNM [address] [place], [place] [phone] Dysuria (Primary Dx); On pre-exposure prophylaxis for HIV; Screening examination for venereal disease Social History Tobacco Use Types Packs/Day Years [...] PM EDT documented as of this encounter Last Filed Vital Signs Vital Sign Reading Time Taken Comments Blood Pressure 132/83 07/17/2024 11:10 AM EDT Pulse 84 07/17/2024 11:10 AM EDT Temperature 36.2 ??C (97.2 ??F) 07/17/2024 11:10 AM E DT Respiratory Rate 20 07/17/2024 11:10 AM EDT Oxygen Saturation 98% 07/17/2024 11:10 AM EDT Inhaled Oxygen Concentration - - Weight 46 kg (101 lb 6.4 oz) 07/17/2024 11:10 AM EDT Height 162.6 cm (5' 4 ) 07/17/2024 11:10 AM EDT Body Mass Index 17.41 07/17/2024 11:10 AM EDT documented in this encounter Progress Notes * Mackenzie Mahajan CNM - 07/17/2024 11:00 AM EDT Subjective Patient ID: Lorenza Cruz is a 54 y.o. female who presents for PrEP followup Here with automatic stacker, Nazia, who remained for visit with Lorenza's consent. On Truvada for PrEP, feels well on medication. No missed doses. 30 day supply send in earlier this month, pending labs today. Would like full STI testing. Vaginal estrogen rx'd 04/2024 for atrophy, it sounds like she needs topick up refill. Notes some frequency, burning with urination and vaginal discharge. One episode of bleeding after sex 3 months ago. Treated for trichomonas 04/2023 Gonorrhea/Chlamydia neg, trichomonas neg x 3 in 02/2024. HIV, syphilis, trichomonas, Gonorrhea/Chlamydia x 3 negative 04/2024. eCrCl 69 04/2024 Hep C RNA neg. Hep B non immune 01/2024 Pap NIL/HPV neg 11/2021 with [facility] CHIEF MARKETING OFFICER. Benign cervical polyp removed 11/2021. History of left ovarian cyst in 2021, which resolved on repeat imaging. Mammogram negative 03/2024 Review of Systems Genitourinary: Positive for dysuria and vaginal discharge. Negative for pelvic pain and vaginal pain. Objective BP 132/83 (BP Location: Left arm, Patient Position: Sitting, BP Cuff Size: Child) Pulse 84 Temp97.2 ??F (36.2 ??C) (Temporal) Resp 20 Ht 5' 4 (1.626 m) Wt 101 lb 6.4 oz (46 kg) LMP (LMPUnknown) SpO2 98% BMI 17.41 kg/m?? Physical Exam Constitutional: Appearance: Normal appearance. Abdominal: Tenderness: There is no right CVA tenderness or left CVA tenderness. Genitourinary: General: Normal vulva. Labia: Right: No rash, tenderness, lesion or injury. Left: No rash, tenderness, lesion or injury. Vagina: Normal. No signs of injury and foreign body. No vaginal discharge, erythema, tenderness, bleeding or lesions. Cervix: No cervical motion tenderness, discharge, friability, lesion, erythema, cervical bleeding or eversion. Uterus: Normal. Not enlarged and not tender. Adnexa: Right adnexa normal and left adnexa normal. Right: No mass, tenderness or fullness. Left: No mass, tenderness or fullness. Neurological: Mental Status: She is alert. Psychiatric: Mood and Affect: Mood normal. Behavior: Behavior normal. Assessment/Plan Diagnoses and all orders for this visit: Dysuria - POCT urinalysis dipstick manually resulted - Culture, Urine, Routine Negative UA today. Will send culture and contact with results. Okay to contact automatic stacker Nazia will any and all results. On pre-exposure prophylaxis for HIV - Creatinine, Serum; Future - HIV-1/2 Antigen and Antibodies, Fourth Generation, with Reflexes Feels well on Truvada, should have enough medication to last until results from today. HIV and creatinine today. Will send in 90 d supply if no contraindications once labs in. Screening examination for venereal disease - HIV-1/2 Antigen and Antibodies, Fourth Generation, with Reflexes - Syphilis Screen; Future - Chlamydia/N. Gonorrhoeae RNA, TMA, Vagina - Chlamydia/N. Gonorrhoeae RNA, TMA, Throat; Future - Chlamydia/N. Gonorrhoeae RNA, TMA, Rectal; Future - Bacterial Vaginosis Panel HIV/syphilis ordered. Gonorrhea/Chlamydia x 3 and bacterial vaginosis swab sent. Reviewed Hep B nonimmune, advised to get vaccine at pharmacy. Should have refills on estrogen cream at pharmacy. Use a finger tip to introitus 2-3x/week. Let me know if not helpful. Lubricant samples and condoms given today. documented in this encounter Plan of Treatment Upcoming Encounters Date Type Department Care Team (Late st Contact Info) Description 07/24/2024 1:30 PM EDT Office Visit [facility] [address] [place] [phone] Kamla Becerra ANP [address] [place], [place] [phone] 10/15/2024 11:00 AM EDT Office Visit [facility] [address] [place] [address] Mackenzie Mahajan CNM [address] [place], [place] [phone] Scheduled Orders Name Type Priority Associated Diagnoses Orde r Schedule HIV-1/2 Antigen and Antibodies, Fourth Generation, with Reflexes Lab Routine On pre-exposure prophylaxis for HIV Screening examination for venereal disease Ordered: 07/17/2024 Syphilis Screen Lab Routine Screening examination for venereal disease Expected: 07/17/2024 (Approximate), Expires: 07/17/2025 Chlamydia/N. Gonorrhoeae RNA, TMA, Vagina Microbiology Routine Screening examination for venereal disease Ordered: 07/17/2024 Chlamydia/N. Gonorrhoeae RNA, TMA, Throat Microbiology Routine Screening examination for venereal disease Expected: 07/17/2024 (Approximate), Expires: 07/17/2025 Chlamydia/N. Gonorrhoeae RNA, TMA, Rectal Microbiology Routine Screening examination for venereal disease Expected: 07/17/2024 (Approximate), Expires: 07/17/2025 Bacterial Vaginosis Panel Microbiology Routine Screening examination for venereal disease Ordered: 07/17/2024 Culture, Urine, Routine Microbiology Routine Dysuria Ordered: 07/17/2024 documented as of this encounter Procedures Procedure Name Priority Date/Time Associated Diagnosis Comments CREATININE, SERUM Routine 07/17/2024 12: 03 PM EDT On pre-exposure prophylaxis for HIV POCT URINALYSIS DIPSTICK Routine 07/17/2024 11:29 AM EDT Dysuria documented in this encounter Results * Creatinine, Serum (07/17/2024 12:03 PM EDT) Creatinine, Serum 0.69 0.5 - 1.4 mg/dL [facility] Estimated Glomerular Filt Rate >60 [facility] Comment:Chronic Kidney Disea se: Estimated GFR < 60 mL/min/[id number] Kidney Disease: Estimated GFR < 15 mL/min/1.73m2 Blood Venous blood specimen / Unknown 07/17/2024 12:03 PM EDT 07/17/2024 1:08 PM EDT Mackenzie Mahajan CNM LAB BLOOD ORDERABLES Tammie l Result [facility] [address] [place] [address] [phone] * POCT urinalysis dipstick manually resulted (07/17/2024 11:29 AM EDT) Color, UA Yellow Clarity, UA Clear Glucose, UA Negative Bilirubin, UA Negative Ketones, UA Negative Spec Grav, UA 1.020 Blood, UA Negative Negative, None Detected pH, UA 6.5 Protein, UA Negative Urobilinogen, UA 0.2 Leukocytes, UA Negative Negative, Rare, Trace Nitrite, UA Negative Negative, None Detected Appearance, UA clear QC Media Lot # [id number] Lot# Expiration Date ,[id number] Urine 07/17/2024 11:2 9 AM EDT Mackenzie Mahajan CNM POINT OF CARE TEST ENTER/ EDIT ORDERABLES Final Result documented in this encounter Visit Diagnoses Diagnosis Dysuria- Primary On pre-exposure prophylaxis for HIV Screening examination for venereal disease documented in this encounter Additional Health Concerns Assessment Noted Time PHQ-9 Depression Total Score: 24 024 2:35 PM EDT documented as of this encounter Care Teams Cross Enterprise Integrator Relationship Specialty Start Date End Date Kamla Becerra ANP [address] [place] [address] PCP - General Family Medicine 12/28/23 Julien Mckay RN [address] [place] [address] Cementer HandBook Sorter 07/10/24 [facility] 07/09/24 documented as of this encounter
--- OUTSIDE RECORDS SUMMARY | 2024-07-17 14:37 | XMS_ITS | Encounter Summary ---
Author Organization [employer] Address [address] [facility] 7t [place] [address] Care Team Providers Care Restaurant Cashier Name Role Phone Kamla Becerra Primary Care Provider [phone] Julien Mckay RN Unavailable [phone] Reason for Visit * Reason Onset Date Comments Appointment Request 03/02/2024 Encounter Details Date Type Department Care Team ([facility] st Contact Info) Description 03/02/2024 Telephone [facility] [address] [place], [place] [phone] Kamla Becerra ANP [address] [place], [place] [phone] Appointment Request Social History Tobacco Use Types Packs/Day [...] encounter Miscellaneous Notes * Telephone Encounter - Angelo Lebron - 03/02/2024 1:30 PM EST Tc from Shelley requesting a call back to R/s appt for 03/05. Contact Shelley at [phone] documented in this encounter Plan of Treatment Upcoming Encounters Date Type Department Care Team (Late st Contact Info) Description 07/24/2024 1:30 PM EDT Office Visit [facility] [address] [place] [address] Kamla Becerra ANP [address] [place] [address] 10/15/2024 11:00 AM EDT Office Visit [facility] [address] [place] [address] Mackenzie Mahajan CNM [address] [place] [address] documented as of this encounter Visit Diagnoses Not on filedocumented in this encounter Additional Health Concerns Assessment Noted Time PHQ-9 Depression Total Score: 24 024 2:35 PM EDT documented as of this encounter Care Teams Restaurant Cashier Relationship Specialty Start Date End Date Kamla Becerra ANP [address] [place] [address] PCP - General Family Medicine 12/28/23 Julien Mckay RN [address] [place] [address] Manager Of LearningHuman Intelligence 07/10/24 [facility] 07/09/24 documented as of this encounter
--- OUTSIDE RECORDS SUMMARY | 2024-07-17 14:37 | XMS_ITS | Encounter Summary ---
Author Organization [employer] Address [address] [facility] 7t [place] [address] Care Team Providers Care Personal Care Aid Name Role Phone Kamla Becerra Primary Care Provider [phone] Julien Mckay RN Unavailable [phone] Reason for Visit * Reason Comments Med Refill Encounter Details Date Type Department Care Team ([facility] st Contact Info) Description 07/05/2024 Refill [facility] [address] [place], [place] [phone] Kamla Becerra ANP [address] [place] [address] Social History Tobacco Use Types Packs/Day Years [...] 07/24/2024 1:30 PM EDT Office Visit [facility] MEDICINE [address] [place] [address] Kamla Becerra ANP [address] [place] [address] 10/15/2024 11:00 AM EDT Office Visit [facility] MEDICINE [address] [place] [address] Mackenzie Mahajan CNM [address] [place] [address] documented as of this encounter Visit Diagnoses Not on filedocumented in this encounter Additional Health Concerns Assessment Noted Time PHQ-9 Depression Total Score: 24 024 2:35 PM EDT documented as of this encounter Care Teams Personal Care Aid Relationship Specialty Start Date End Date Kamla Becerra ANP [address] [place] [address] PCP - General Family Medicine 12/28/23 Julien Mckay, YARI [address] [place] [address] Account Services AssociateEnergy Professional 07/10/24 [facility] 07/09/24 documented as of this encounter
--- OUTSIDE RECORDS SUMMARY | 2024-07-17 14:38 | XMS_ITS | Encounter Summary ---
Author Organization [employer] Address [address] [facility] 7t [place] [address] Care Team Providers Care Concrete Pipe Machine Operator Name Role Phone Kamla Becerra Primary Care Provider [phone] Julien Mckay RN Unavailable [phone] Encounter Details Date Type Department Care Team ([facility] st Contact Info) Description 01/17/2024 Orders Only [facility] MEDICINE [address] [place], [place] [phone] Kamla Becerra ANP [address] [place] [address] Social History Tobacco Use Types Packs/Day Years Used Date Smoking Tobacco: Every Day Cigarettes Passive Smoke Exposure: Current Smokeless Tobacco: Never Alcohol Use Standard Drinks/Week Comments Not Currently 0 (1 standard drink = 0.6 oz pur e alcohol) Depression Answer Date Recorded Patient Health Questionnaire-9 [...] Description 07/24/2024 1:30 PM EDT Office Visit [facility] MEDICINE [address] [place] [address] Kamla Becerra ANP [address] [place] [address] 10/15/2024 11:00 AM EDT Office Visit [address] [address] Mackenzie Mahaajn CNM [address] [place] [address] documented as of this encounter Visit Diagnoses Not on filedocumented in this encounter Additional Health Concerns Assessment Noted Time PHQ-9 Depression Total Score: 24 024 2:35 PM EDT documented as of this encounter Care Teams Concrete Pipe Machine Operator Relationship Specialty Start Date End Date Kamla Becerra ANP [address] [place] [address] PCP - General Family Medicine 12/28/23 Julien Mckay RN [address] [place] [address] [employer] FounderTeletype Installer 07/10/24 [facility] 07/09/24 documented as of this encounter
--- OUTSIDE RECORDS SUMMARY | 2024-07-17 14:38 | XMS_ITS | Clinical Summary ---
Author Organization [employer] Address [address] [place] [address] Care Team Providers Care Insurance Claims Adjuster Name Role Phone Kamla Becerra Primary Care Provider [phone] Julien Mckay RN Unavailable [phone] Allergies Active Allergy Reactions Criticality Noted Date Comments Penicillins Rash Low 12/28/2023 Medications benztropine (Cogentin) 1 MG tablet 024 Active cloNIDine (Catapres) 0.2 MG tablet 024 Active DULoxetine (Cymbalta) [address] capsule 024 Active fenofibrate (Triglide) 160 MG tablet 024 Active folic acid (Folvite) 1 MG tablet 024 Active FREESTYLE LITE test strip Active haloperidol (Haldol) 1 MG tablet Active hydrOXYzine HCl (Atarax) 25 MG tablet 024 Active lactulose (Enulose) 10 GM/15ML solution oral solution 024 Active Lancets (Safety Lancet 30G/Pressure Act) misc 024 Active levothyroxine (Synthroid, Levoxyl) 25 MCG tablet 024 Active lurasidone (Latuda) 80 MG tablet 024 Active Melatonin 5 MG tablet dispersible Active metFORMIN (Glucophage) 500 MG tablet Active naloxone (Narcan) 4 mg/0.1 mL nasal spray 023 Active naltrexone (Depade) 50 MG tablet 08/06/2 024 Active naproxen (Naprosyn) 500 MG tablet Active omeprazole (PriLOSEC) [address] capsule Active Stimulant Laxative 8.6-50 MG tablet Active thiamine (Vitamin B-1) 100 MG tablet Active traZODone (Desyrel) 100 MG tablet TAKE 2 TABLETS BY MOUTH AT BEDTIME 30 tablet 2 Active estradiol (Estrace) 0.1 MG/GM vaginal cream 1g (one fingertip) vaginally x 14d, then twice weekly thereafter 45 g 2 Active lidocaine (Lidoderm) 5 % patch APPLY 1 PATCH TOPICALLY EVERY DAY. REMOVE PATCH AND DISCARD AFTER 12 HOURS OR DIRECTED BY MD. 30 patch 1 Active ondansetron ODT (Zofran-ODT) 4 MG disintegrating tablet DISSOLVE 1 TABLET ON THE TONGUE 3 TIMES A DAY NEEDED FOR NAUSEA 90 tablet Active cephalexin (Keflex) 250 MG capsule Take 250 mg by mouth 2 times daily. Active acetaminophen (Tylenol) 325 MG tabletIndications :Partial thickness burn of single finger of right hand excluding thumb, subsequent encounter Take 2 tabs as needed for pain every 4-6 hrs for pain 60 tablet Active cyclobenzaprine (Flexeril) 5 MG tablet Take 1 tablet (5 mg) by mouth if needed in the morning, at noon, and at bedtime for muscle spasms. 90 tablet Active emtricitabine-ten ofovir DF (Truvada) 200-300 MG tabletIndications :On pre-exposure prophylaxis for HIV TAKE 1 TABLET BY MOUTH EVERY DAY 30 tablet Active emtricitabine-ten ofovir DF (Truvada) 200-300 MG tabletIndications :Pre-Exposure Prophylaxis of HIV Take 1 tablet by mouth Once per day. Last fill 01/05/2024, one refill remains 90 tablet 025 2024 Discontinued ondansetron ODT (Zofran-ODT) 4 MG disintegrating tablet TAKE 1 TAB(S) 3 TIMES A DAY NEEDED FOR NAUSEA 90 tablet 025 2024 Discontinued cyclobenzaprine (Flexeril) 5 MG tablet Take 1 tablet (5 mg) by mouth if needed in the morning, at noon, and at bedtime for muscle spasms. 90 tablet 025 2024 Discontinued(R eorder (will not trigger notification to Pharmacy)) Active Problems Problem Noted Date Diagnosed Date Unstable gait 07/06/2024 Protein-calorie malnutrition 07/06/2024 Cannabis abuse 06/19/2024 Cocaine abuse in remission 06/19/2024 Mood disorder 06/19/2024 Seizure disorder 06/19/2024 Alcohol dependence 02/21/2024 Nicotine dependence 02/21/2024 H/O thyroidectomy 02/21/2024 History of tubal ligation 02/21/2024 History of surgical procedure 02/21/2024 Acquired hypothyroidism 02/21/2024 Partial optic atrophy 02/21/2024 Overview (02/21/2024): Was referred to [facility] History of lacunar cerebrovascular accident (CVA ) 02/21/2024 Vaginal dryness 01/17/2024 Smoking 12/28/2023 Overview (12/28/2023): encourage cessation Essential hypertension 12/28/2023 Overview (12/28/2023): no HTN meds on list. BP remained above goal on repeat. Lumbar radiculopathy 12/28/2023 Overview (12/28/2023): reviewed w/ Lorenza unable to rx any meds today given her complex med hx and no labs to go off of. Does have APAP and naproxen on med list. Was in PT for same. On pre-exposure prophylaxis for HIV 12/28/2023 Overview (12/28/2023): On Truvada via previous PCP, rec to cont. gave condoms/lube today. Poor vision 12/28/2023 Overview (12/28/2023): Sees neuro-ophth. has bilateral partial optic atrophy. Hepatic encephalopathy 12/28/2023 Overview (12/28/2023): per pt, on lactulose TID, clarify GI care at f/u. Encounters Date Type Department Care Team Description 07/17/2024 11:00 AM EDT Office Visit [facility] [address] [place] [phone] Mackenzie Mahajan CNM Dysuria (Primary Dx); On pre-exposure prophylaxis for HIV; Screening examination for venereal disease 07/17/2024 Travel 07/16/2024 Telephone [facility] [address] [place] [address] Kamla Becerra ANP Durable Medical Equipment 07/16/2024 Patient Outreach [address] [phone] Kamla Becerra ANP Care Coordination (SDOH/appt reminder) 07/12/[address] [facility] [address] [place] [phone] Kamla Becerra ANP On pre-exposure prophylaxis for HIV 07/10/[address] [facility] [address] [place] [phone] Kamla Becerra ANP Durable Medical Equipment 07/05/2024 Refill [facility] [address] [place] [address] Kamla Becerra ANP 07/05/[address] [address] Kamla Becerra ANP Care Management (C3CM- initial assessment/ enrollment) 07/04/2024 Patient Outreach [address] [address] Kamla Becerra ANP Care Coordination (CM/CHW appt reminder) 07/02/2024 Refill [facility] [address] [place] [address] Kamla Becerra ANP 06/22/2024 Population Health Risk Score [facility] Department [address] [place] [phone] Provider, Population Health Generic 06/21/[address] [facility] [address] [place] [phone] Kamla Becerra ANP Call Back Request (/) 06/20/2024 3:45 PM EDT Office Visit [address] [address] Phylicia Gonzalez, FORGING DIE FINISHER Partial thickness burn of single finger of right hand excluding thumb, subsequent encounter (Primary Dx) 06/20/[address] [address] Kamla Becerra ANP 06/20/2024 Travel 06/19/[address] [address] Kamla Becerra ANP Call Back Request 06/19/[address] [address] Kamla Becerra ANP ER Follow-up 06/18/[address] [address] Kamla Becerra ANP 06/18/2024 Patient Outreach [address] [phone] Kamla Becerra ANP Care Coordination (triage) 06/18/2024 Patient Outreach [address] [address] Kamla Becerra ANP Care Coordination (CM/CHW outreach) 06/18/[address] [address] Kamla Becerra ANP Care Management (C3CM- chart review) 06/15/2024 Refill [facility] [address] [place] [address] Kamla Becerra ANP 2024 Refill [facility] [address] [place] [address] Kamla Becerra ANP 05/15/[address] [address] Lorrie Obregon [place] Melinda recall 05/01/2024 Refill [facility] [address] [place] [address] Kamla Becerra ANP 04/26/2024 Orders Only [address] [phone] Mackenzie Mahajan CNM 04/25/[address] [address] Concepción Bhat RN Results 04/24/2024 11:30 AM EST Office Visit [address] [address] Mackenzie Mahajan CNM Acute vaginitis (Primary Dx); Screening examination for venereal disease; On pre-exposure prophylaxis for HIV; Dysuria 04/24/2024 Refill [facility] [address] [place], [place] [phone] Kamla Becerra ANP 04/24/2024 Orders Only [address] [address] Mackenzie Mahajan CNM On pre-exposure prophylaxis for HIV 04/24/2024 Travel 04/23/[address] [address] Kamla Becerra ANP from Last 3 Months Immunizations Name Administration Dates Next Due COVID-19 Non-US Vaccine, Product Unknown 022 Influenza, IIV3, injectable 01/20/2020 Influenza, seasonal, injectable, preservative fr ee 02/21/2024 Pfizer Covid-19 Vaccine 12+ 02/21/2024 Pneumococcal Conjugate PCV 20 12/28/2023 Pneumococcal Polysaccharide PPSV23 01/20/2020 Tdap 12/28/2023 Social History Tobacco Use Types Packs/Day Years Used Date Smoking Tobacco: Every Day Cigarettes Passive Smoke Exposure: Current Smokeless Tobacco: Never Tobacco Cessation:Ready to Q uit: Not Asked; Counseling Given: Not Answered Alcohol Use Standard Drinks/Week Comments Yes 2 [...] Orientation Bisexual 12/28/2023 2: 07 PM EDT Last Filed Vital Signs Vital Sign Reading [...] Mass Index 17.41 07/17/2024 11:10 AM EDT Plan of Treatment Upcoming Encounters Date Type Department Care Team (Late st Contact Info) Description 07/24/2024 1:30 PM EDT Office Visit [facility] [address] [place], [place] [phone] Kamla Becerra, ANP [address] [place] [address] 10/15/2024 11:00 AM EDT Office Visit [facility] [address] [place] [address] aMckenzie Mahajan, RODNEY [address] [place], [place] [phone] Health Maintenance Due Date Last Done Comments CT Colonography 1968 Colonoscopy 1968 Colorectal Cancer Screening 1968 FIT DNA/Cologuard 1968 FIT 1968 FOBT 1968 Sigmoidoscopy 1968 Diabetes: Foot Exam 1978 Eye Exam 1978 Hepatitis C Screening 1986 Diabetes: Urine Protein Screening 1987 Hepatitis B Vaccines (1 of 3 - 19+ 3-dose series) 1987 Zoster Vaccines (1 of 2) 2018 Depression Monitoring (PHQ-9) 06/26/2024 12/28/2023, 12/28/2023 Diabetes: Hemoglobin A1C 08/20/2024 02/21/2024 Depression Screening 12/27/2024 12/28/2023, 12/28/19 24 SDOH Screening 12/27/2024 12/28/2023 Alcohol/Substance Use Screening 02/20/2025 02/21/2024 Lipid Panel 02/20/2025 02/21/2024 Tobacco Screening 07/17/2025 07/17/2024 Mammogram 03/21/2026 03/21/2024, 03/11, 06/21/2023 Cervical Cancer Screening 11/17/2026 HPV/Cotest 11/17/2026 Pap Smear 11/17/2026 11/17/2021 DTaP/Tdap/Td Vaccines (2 - Td or Tdap) 12/27/2033 12/28/2023 RSV Patients and Patients Aged 60 years or older (1 - 1-dose 75+ series) 2043 Pneumococcal Vaccine: 50+ Years Completed 12/28/2023, 01/20/2020 COVID-19 Vaccine Completed 02/21/2024, , 07/17/2020, Additional history exists Influenza Vaccine Completed 02/21/2024, , 03/30/2018 HIV Screening Completed 04/24/2024 HIB Vaccines Aged Out No longer eligi ble based on patient's age to complete this topic HPV Vaccines Aged Out No longer eligi ble based on patient's age to complete this topic Hepatitis A Vaccines Aged Out No long er eligible based on patient's age to complete this topic IPV Vaccines Aged Out No longer eligi ble based on patient's age to complete this topic Meningococcal Vaccine Aged Out No raudel ingrid eligible based on patient's age to complete this topic RSV under 20 months Aged Out No longe r eligible based on patient's age to complete this topic Rotavirus Vaccines Aged Out No longer eligible based on patient's age to complete this topic Procedures Procedure Name Priority Date/Time Associated Diagnosis Comments CREATININE, SERUM Routine 07/17/2024 12: 03 PM EDT On pre-exposure prophylaxis for HIV POCT URINALYSIS DIPSTICK Routine 07/17/2024 11:29 AM EDT Dysuria TRICHOMONAS VAGINALIS RNA, QUALITATIVE, TMA Routine 04/24/2024 12:47 PM EST Acute vaginitis POCT WET MOUNT/SEA Routine 04/24/2024 12 :09 PM EST Acute vaginitis RPR (MONITOR) W/REFL TITER Routine 04/24/2024 12:09 PM EST Screening examination for venereal disease HIV 1/2 ANTIGEN/ANTIBODY, FOURTH GENERATION W/RFL Routine 04/24/2024 12:09 PM EST Screening examination for venereal disease CREATININE, SERUM Routine 04/24/2024 12: 09 PM EST On pre-exposure prophylaxis for HIV TSH W/REFLEX TO FT4 Routine 04/24/2024 1 2:09 PM EST Acquired hypothyroidism CHLAMYDIA/N. GONORRHOEAE RNA, TMA, THROAT Routine 04/24/2024 12:02 PM EST On pre-exposure prophylaxis for HIV CHLAMYDIA/N. GONORRHOEAE RNA, TMA, RECTAL Routine 04/24/2024 12:02 PM EST On pre-exposure prophylaxis for HIV BACTERIAL VAGINOSIS PANEL Routine 04/24/2024 12:02 PM EST On pre-exposure prophylaxis for HIV CHLAMYDIA/N. 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 Creatinine, Serum 0.69 0.5 - 1.4 mg/dL [facility] Estimated Glomerular Filt Rate >60 [facility] Comment:Chronic Kidney Disea se: Estimated GFR < 60 mL/min/1.27j1Fsybsr Kidney Disease: Estimated GFR < 15 mL/min/1.73m2 Blood Venous blood specimen / Unknown 07/17/2024 12:03 PM EDT 07/17/2024 1:08 PM EDT [facility] LAB BLOOD ORDERABLES Tammie l Result [facility] [address] [place] [phone] * POCT urinalysis dipstick manually resulted (07/17/2024 11:29 AM EDT) Only the most recent of2 resultswithin the time period is included. Color, UA Yellow Clarity, UA Clear Glucose, UA Negative Bilirubin, UA Negative Ketones, UA Negative Spec Grav, UA 1.020 Blood, UA Negative Negative, None Detected pH, UA 6.5 Protein, UA Negative Urobilinogen, UA 0.2 Leukocytes, UA Negative Negative, Rare, Trace Nitrite, UA Negative Negative, None Detected Appearance, UA clear QC Media Lot # [id number] Lot# Expiration Date [id number] Urine 07/17/2024 11:2 9 AM EDT [facility] POINT OF CARE TEST ENTER/ EDIT ORDERABLES Final Result * Trichomonas RNA (Urine/Vaginal) (04/24/2024 12:47 PM EST) Trichomas vaginalis RNA, QL, TMA NOT DETECTED NOT DETECTED [facility] Comment:For additional infor mation, please refer tohttp://education.Amootoon/faq/Trichomonastma(This link is being provided for informational/educational purposes only.)THIS TEST WAS PERFORMED AT:[facility] [place] [id number] STOCKTON MD Urine (Urine, Random) 04/24/2024 12:47 PM EST 04/24/2024 4:42 PM EST Mackenzie SILVER LAB BODY FLUIDS AND STOOL S ORDERABLES Final Result Performing Organization Address [facility] Co de Phone Number [facility] [address] [place] [phone] * TSH W/Reflex to FT4 (04/24/2024 12:09 PM EST) TSH reflex Free T4 2.37 0.32 - 4.0 uIU/mL [facility] Blood Venous blood specimen / Unknown 04/24/2024 12:09 PM EST 04/24/2024 1:12 PM EST Kamla GARCÍA LAB BLOOD ORDERABLES Final Resul t Performing Organization Address [facility] Co de Phone Number [facility] [address] [place] [phone] * RPR (Monitor) with Reflex to??Titer (04/24/2024 12:09 PM EST) RPR (Monitor) w/Refl Titer NON-REACTI VE NON-REACT BEN [facility] Comment:THIS TEST WAS PERFOR MED AT:[facility] [address] [id number] STOCKTON MD Rapid Plasma Reagin Ab Titer TNP [facility] Blood Venous blood specimen / Unknown 04/24/2024 12:09 PM EST 04/24/2024 1:12 PM EST Mackenzie SILVER LAB BLOOD ORDERABLES Tammie l Result Performing Organization Address [facility] Co de Phone Number [facility] [address] [place] [phone] * HIV-1/2 Antigen and Antibodies, Fourth Generation, with Reflexes (04/24/2024 12:09 PM EST) [facility] HIV AB/AG Nonreactive Nonreactive [facility] Comment:HIV-1 p24 Ag and/or HIV-1/HIV-2 Ab not detected.A test result that is nonreactive does not exclude thepossibility of exposure to or infection with HIV-1 and/orHIV-2. Nonreactive results in this assay for individualswith prior exposure to HIV-1 and/or HIV-2 may be due toantigen and antibody levels that are below the limit ofdetection of this assay.The Adimab HIV Ag/Ab Combo assay result andsupplemental assay results should be interpreted inconjunction with the patient's clinical presentation,history and other laboratory results. If the results areinconsistent with clinical evidence, additional testing issuggested to confirm the result. Blood Venous blood specimen / Unknown 04/24/2024 12:09 PM EST 04/24/2024 1:12 PM EST Mackenzie Mahajan CNM LAB BLOOD ORDERABLES Tammie l Result [facility] [address] [place] [phone] * POCT fern test, vaginal fluid manually resulted (04/24/2024 12:09 PM EST) [facility] SEA Prep Positive Comment:pH 5.5 pos whiff, po s clue, pos wbc, possible nonmotile trich, neg yeast Vaginal Fluid Vaginal structure / Unknown 04/24/2024 12:09 PM EST Pedros Mackenzie Mahajan CNM - 04/24/2024 12:09 PM EST Bacterial vaginosis, possible trichomonas Mackenzie Mahajan CNM POINT OF CARE TEST ENTER/ EDIT ORDERABLES Final Result * (ABNORMAL) Bacterial Vaginosis (04/24/2024 12:02 PM EST) TRICHOMONAS VAGINALIS DETECTION BY PCR NOT DETECTED Not Detect [facility] BACTERIAL VAGINOSIS DETECTION BY PCR POSITIVE(A) Negative [facility] Comment:The BV organism targ ets of the Xpert Xpress MVP test can becommensal in women; Xpert Xpress MVP positive results forbacterial vaginosis should be considered in conjunction withother clinical and patient information to determine thedisease status. Organisms that are not detected by the XpertXpress MVP test have also been reported to be associatedwith BV and aerobic vaginitis.The Xpert Xpress MVP test performance has not been evaluatedin patients under the age of 14. LILY GROUP DETECTION BY PCR DETECTED(A) Not Detect [facility] Lily glab krusei PCR NOT DETECTED Not Detect [facility] 04/24/2024 12:0 2 PM EST 04/24/2024 4:40 PM EST Mackenzie SILVER LAB MICROBIOLOGY - GENERA L ORDERABLES Final Result [facility] [address] [place] [phone] * Chlamydia/N. Gonorrhoeae RNA, TMA, Throat (04/24/2024 12:02 PM EST) C. Trachomatis RNA TMA, Throat NOT DETECTED [facility] N. gonorrhoeae RNA TMA, Throat NOT DETECTED [facility] Comment:REFERENCE RANGE: NOT DETECTEDMethodology: Lumber Marker Mediated Amplification (TMA) to detect RNA.The analytical performance characteristics of this assayhave been determined by [facility]. The modificationshave not been cleared or approved by the FDA. This assay hasbeen validated pursuant to the CLIA regulations and is usedfor clinical purposes.For additional information, please refer tohttps://education.Amootoon/faq/NGQ991(This link is being provided for informational/educationalpurposes only.)THIS TEST WAS PERFORMED AT:[facility] [id number] [phone] RUSSELL MD,PHD,LUANN 04/24/2024 12:0 2 PM EST 04/24/2024 4:13 PM EST Mackenzie [facility] LAB MICROBIOLOGY - GENERA L ORDERABLES Final Result Performing Organization Address [facility]/ZIP Co de Phone Number [facility] [address] [place] [phone] * Chlamydia/N. Gonorrhoeae RNA, TMA, Rectal (04/24/2024 12:02 PM EST) C.Trachomatis RNA TMA, Rectal NOT DETECTED [facility] N.Gonorrhoeae RNA TMA, Rectal NOT DETECTED [facility] Comment:REFERENCE RANGE: NOT DETECTEDMethodology: Lumber Marker Mediated Amplification (TMA) to detect RNA.The analytical performance characteristics of this assayhave been determined by [facility]. The modificationshave not been cleared or approved by the FDA. This assay hasbeen validated pursuant to the CLIA regulations and is usedfor clinical purposes.THIS TEST WAS PERFORMED AT:[facility] [id number] [place] [id number] RUSSELL MD,PHD,LUANN 04/24/2024 12:0 2 PM EST 04/24/2024 4:40 PM EST Mackenzie [facility] LAB MICROBIOLOGY - GENERA L ORDERABLES Final Result Performing Organization Address City/[facility]/ZIP Co de Phone Number [facility] [address] [place] [phone] * Chlamydia/N. Gonorrhoeae RNA, TMA, Vagina (04/24/2024 12:02 PM EST) CT PCR NOT DETECTED Not Detect. [facility] Comment:A not detected test result does not exclude the possibilityof infection because test results can be affected byimproper specimen collection, concurrent antibiotic therapy,or the number of organisms in the specimen which may bebelow the sensitivity of the test. As with many diagnostictests, results from the Xpert CT/NG assay should beinterpreted in conjunction with other laboratory andclinical data available to the clinician.Xpert CT/NG performance has not been evaluated in patientsless than 14 years of age. The assay should not be used forthe evaluationof suspected sexual abuse or for other medico-legalindications. Additional testing is recommended in anycircumstance when false positive or false negative resultscould lead to adverse medical, social or psychologicalconsequences. NG PCR NOT DETECTED Not Detect. [facility] Comment:A not detected test result does not exclude the possibilityof infection because test results can be affected byimproper specimen collection, concurrent antibiotic therapy,or the number of organisms in the specimen which may bebelow the sensitivity of the test. As with many diagnostictests, results from the Xpert CT/NG assay should beinterpreted in conjunction with other laboratory andclinical data available to the clinician.Xpert CT/NG performance has not been evaluated in patientsless than 14 years of age. The assay should not be used forthe evaluationof suspected sexual abuse or for other medico-legalindications. Additional testing is recommended in anycircumstance when false positive or false negative resultscould lead to adverse medical, social or psychologicalconsequences. Swab Vaginal structure / Unknown 04/24/2024 12:02 PM EST 04/24/2024 4:41 PM EST Narrative [facility] - 04/25/2024 3:59 AM EST Vaginal Mcakenzie [facility] LAB MICROBIOLOGY - GENERA L ORDERABLES Final Result [facility] [address] [place] [address] [phone] * Culture, Urine, Routine (04/24/2024 11:53 AM EST) Urine Urine specimen obtained by clean catch procedure / Unknown 04/24/2024 11:53 AM EST 04/24/2024 4:42 PM EST Comment:[facility] Narrative [facility] - 04/26/2024 7:51 AM EST Escherichia coli Quant > 100,000 cfu/mL Escherichia coli: Ampicillin 8(S) Escherichia coli: Cefazolin <=1(S) Escherichia coli: Cefepime <=0.12(S) Escherichia coli: Ceftriaxone <=0.25(S) Escherichia coli: Ciprofloxacin <=0.06(S) Escherichia coli: Gentamicin <=1(S) Escherichia coli: Nitrofurantoin 128(R) Escherichia coli: Trimethoprim/Sulfamethoxazole <=20(S) Specimen Source: Urine clean catch Mackenzie Mahajan [facility] MICROBIOLOGY - GENERA L ORDERABLES Final Result Performing Organization Address [facility]/ZIP Co de Phone Number [facility] [address] [place] [address] [phone] * Hemoglobin A1c (02/21/2024 1:49 PM EST) Hemoglobin A1c 6.0 <6.0 % [place] [facility] Comment:Hemoglobin A1C Refer ence Range Adults: 4.8 - 6.0 % Non diabetic: < 6.0 % Goal: < 7.0 %Additional Action Suggested: > 8.0 %Note: Hemoglobin A1c results are invalid for patients with abnormal amounts of HbF. Blood transfusions may impact the HbA1c concentration in the patient sample. Estimated Average Glucose 126 mg/dL [facility] Comment:eAG = Estimated ave rage glucose which is %A1C expressed asaverage glucose, using the formula of the [id number] Glucose study (ADAG), Diabetes Care, Vol.31,#8,Nov. 2007 Blood Venous blood specimen / Unknown 02/21/2024 1:49 PM EST 02/21/2024 4:07 PM EST Kamla GARCÍA LAB BLOOD ORDERABLES Final Resul t Performing Organization Address [facility]/ZIP Co de Phone Number [facility] [address] [place] [address] [phone] * Lipid Panel, Standard (02/21/2024 1:49 PM EST) Triglycerides 86 <150 mg/dL [facility] Comment:Desirable Triglyceri de: less than 150 mg/dLBorderline High Triglyceride 150-199 mg/dLHigh Triglyceride: 200-499 mg/dLVery High Triglyceride: greater than or equal to 5OO mg/dL Cholesterol 145 <200 mg/dL [facility] Comment:Desirable Cholestero l: less than 200 mg/dLBorderline High Cholesterol: 200-239 mg/dLHigh Cholesterol: greater than 239 mg/dL LDL Cholesterol Calculated 67 <100 mg/dL [facility] Comment:Desirable LDL: less than 100 mg/dLNear Optimal/Above Optimal LDL: 110- 129 mg/dLBorderline High LDL: 130-159 mg/dLHigh LDL: 160-189 mg/dLVery High LDL: greater than or equal to 190 mg/dL HDL Cholesterol 61 >40 mg/dL [facility] Comment:Desirable HDL: great er than 40 mg/dL Note: This HDL assay may give artificially low results in patients with liver disease. Blood Venous blood specimen / Unknown 02/21/2024 1:49 PM EST 02/21/2024 4:07 PM EST Kamla GARCÍA LAB BLOOD ORDERABLES Final Resul t Performing Organization Address City/[facility]/ZIP Co de Phone Number [facility] [address] [place] [address] [phone] * Mammography (06/21/2023) Mammogram BIRADS 2 Normal, Abnormal, BIRADS 1 , BIRADS 2 Anatomical Region Laterality Modality Other [place]oma Provider HEALTH MAINTENANCE Final Result * Pap Smear (11/17/2021 12:00 AM EDT) Swab Mohan Peres MD LAB CYTOLOGY ORDERABLES Final Re sult Performing Organization Address City/[facility]/ZIP Co de Phone Number [facility] [address] [place] [address] [phone] from Last 3 Months or Most Recently Relevant to Health Maintenance [place] [place] [address] STANDARD Care Teams Insurance Claims Adjuster Relationship Specialty Start Date End Date Kamla Becerra ANP [address] [place] [phone] PCP - General Family Medicine 12/28/23 Julien Mckay RN [address] [place] [phone] Asset AccountantSecurity And Privacy Consultant 07/10/24 [facility] 07/09/24
[2024-07-18 04:21] LABS: Syphilis Screen Nonreactive (Nonreactive)
[2024-07-18 05:00] LABS: HIV AB/AG Nonreactive (Nonreactive); HIV Num 1 0.06 S/CO (0.00-0.99)
[2024-07-18 06:57] LABS: CT PCR NOT DETECTED (Not Detect.); NG PCR NOT DETECTED (Not Detect.)
[2024-07-18 09:01] LABS: Bacterial Vaginosis PCR POSITIVE (Negative); Candida Group PCR NOT DETECTED (Not Detect); Candida glab krusei PCR NOT DETECTED (Not Detect); Trichomonas vaginalis PCR NOT DETECTED (Not Detect)
[2024-07-20 14:38] LABS: C.Trachomatis RNA TMA, Rectal NOT DETECTED; N.Gonorrhoeae RNA TMA, Rectal NOT DETECTED
[2024-07-20 14:42] LABS: C. Trachomatis RNA TMA, Throat NOT DETECTED; N. gonorrhoeae RNA TMA, Throat NOT DETECTED
== END 2024-07-17 12:01 | disposition home or self-care (01) ==
LOC: HO.HHCL 12:00
PROVIDERS: Visit Provider Advanced Practice Midwife
DX: R30.0 Dysuria (principal); Z11.3 Encounter for screening for infections with a predominantly sexual mode of transmission; Z79.899 Other long term (current) drug therapy
CPT/HCPCS: 36415; 81515; 82565; 86780; 87086; 87389; 87491; 87591

== ENCOUNTER 2024-09-11 14:51 | Outpatient (REF) | payer MEDICAID, SELFPAY ==
--- NOTE | ~2024-09-11 | XR_ITS ---
EXAMINATION: XR KNEE, RIGHT CLINICAL INFORMATION: right knee pain COMPARISON: None available. TECHNIQUE: Four views of the right knee. FINDINGS: Joint spaces are preserved. There are no marginal osteophytes. There is no joint effusion. No bony abnormality is evident. XR/XR knee RT 4V IMPRESSION: Unremarkable right knee. Electronically signed by: Raulito Sarabia MD 09/11/2024 03:19 PM EDT
--- NOTE | ~2024-09-11 | XR_ITS ---
EXAMINATION: XR KNEE, LEFT CLINICAL INFORMATION: left knee pain COMPARISON: None available. TECHNIQUE: Four views of the left knee. FINDINGS: There is no joint effusion. Joint spaces are preserved. There are no osteophytes. Oval soft tissue ossification is present along the lateral distal thigh. XR/XR knee LT 4V IMPRESSION: Unremarkable left knee. Electronically signed by: Raulito Sarabia MD 09/11/2024 03:17 PM EDT
--- OUTSIDE RECORDS SUMMARY | 2024-09-11 16:34 | XMS_ITS | Encounter Summary ---
Author Organization [employer] Address [address] [facility] 7[address] [place] [address] Care Team Providers Care Reclamation Supervisor Name Role Phone BecerraKamla Primary Care Provider [phone] Reason for Visit * Reason Comments Hand Burn Finger Encounter Details Date Type Department Care Team ([facility] st Contact Info) Description 09/11/2024 3:00 PM EDT Office Visit [facility] [address] [place] [address] Siddharth Lemus MD [address] [place] [address] Paronychia of finger, right (Primary Dx); Acute pain of both knees Social History Tobacco Use Types Packs/Day Years [...] Answer Date Recorded Patient Health Questionnaire-9 Score 6 07/24/2024 Patient Health Questionnaire-9 Score 6 07/24/2024 Last PHQ-9: Questionnaire Data Not on file 0 07/24/2024 Housing Stability Answer Date Recorded What is [...] Answer Date Recorded Patient Health Questionnaire-2 Score 0 07/24/2024 Internet Access Answer Date Recorded Internet Access [...] Sign Reading Time Taken Comments Blood Pressure 129/77 09/11/2024 2:16 PM EDT Pulse 98 09/11/2024 2:16 PM EDT Temperature 36.8 ??C (98.3 ??F) 09/11/2024 2:16 PM ED T Respiratory Rate 18 09/11/2024 2:16 PM EDT Oxygen Saturation 95% 09/11/2024 2:16 PM EDT Inhaled Oxygen Concentration - - Weight 44.9 kg (99 lb) 09/11/2024 2:16 PM EDT Height - - Body Mass Index 16.99 07/24/2024 1:40 PM EDT documented in this encounter Progress Notes * Siddharth Harrison MD - 09/11/2024 3:00 PM EDT SUBJECTIVE Lorenza Cruz is a 54 y.o. female who presents for Hand Burn (Finger). Patient here accompanied by friend who brought her after she noted redness and swelling on her right hand ( 3rd and 4th finger ). Apparently she takes things out of the microwave that are extremely hot and bird her hand. She also recently tripped and fell landing on her hands and knees, since thenshe has been c/o bilateral knee pain Review of Systems Constitutional: Negative for fever. HENT: Negative for sore throat. Respiratory: Negative for cough and shortness of breath. Cardiovascular: Negative for chest pain. Gastrointestinal: Negative for abdominal pain. Neurological: Negative for headaches. Allergies[1] OBJECTIVE Vitals: 09/11/24 1416 BP: 129/77 BP Location: Right arm Patient Position: Sitting BP Cuff Size: Adult Pulse: 98 Resp: 18 Temp: 98.3 ??F (36.8 ??C) TempSrc: Temporal SpO2: 95% Weight: 99 lb (44.9 kg) Physical Exam Musculoskeletal: Right knee: No swelling. Tenderness present. Left knee: No swelling. Tenderness present. Comments: Patient had redness and swelling on her 3rd and 4th distal phalanges Assessment/Plan Problem List Items Addressed This Visit Paronychia of finger, right - Primary Pt's examination suggestive of infection. 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 Pt has a VNA that comes every day at home. Already in the process of obtaining CUSHION INSTALLER services Plan: Plain films both knees. Relevant Medications doxycycline (Vibra-Tabs) 100 MG tablet Other Relevant Orders XR Knee 4+ Views Right XR Knee 3 Views Left Future Appointments Date Time Provider Department Center 09/11/2024 3:00 PM [facility] 1 WALK-IN [facility] 10/01/2024 11:00 AM RICKY Gabriel MEDICINE [facility] 10/15/2024 11:00 AM Mackenzie Mahajan CNM MEDICINE [facility] [1] Allergies Allergen Reactions Penicillins Rash documented in this encounter Miscellaneous Notes * Assessment & Plan Note - Siddharth Harrison MD - 09/11/2024 2:38 PM EDT Associated Problem(s): Acute pain of both knees Patient here with c/o bilateral knee pain s/p fall at home. Pt has a VNA that comes every day at home. Already in the process of obtaining CUSHION INSTALLER services Plan: Plain films both knees. * Assessment & Plan Note - Siddharth Harrison MD - 09/11/2024 2:37 PM EDT Associated Problem(s): Paronychia of finger, right Pt's examination suggestive of infection. 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 Pt is allergic to Penicillin Plan: Doxy BID x 7 days documented in this encounter Plan of Treatment Upcoming Encounters Date Type Department Care Team (Late st Contact Info) Description 10/01/2024 11:00 AM EDT Office Visit [facility] [address] [place] [address] Kamla Becerra ANP [address] [place] [address] 10/15/2024 11:00 AM EDT Office Visit [facility] [address] [place] [address] Mackenzie Mahajan CNM [address] [place] [address] documented as of this encounter Procedures Procedure Name Priority Date/Time Associated Diagnosis Comments XR KNEE 4+ VIEWS RIGHT Routine 09/11/2024 2:51 PM EDT Acute pain of both knees XR KNEE 4+ VIEWS LEFT Routine 09/11/2024 2:51 PM EDT documented in this encounter Results * XR Knee 4+ Views Left (09/11/2024 2:51 PM EDT) Anatomical Region Laterality Modality Lower Extremities, Knee Left Radiogra phic Imaging 09/11/2024 2:51 PM EDT Narrative 09/11/2024 3:19 PM EDT ?[facility] ?[address] ?[place] [address] ?XRay Report ? Signed ? Patient: Page Cruz,Lorenza D ?MR#: ?? [id number] ? : 1970 ?Acct:[id number] ? Age/Sex: 54 / F ?ADM Date: 09/11/24 ? Loc: HO.HHCX ? Attending Dr: Siddharth Camacho MD ? Ordering Physician: Siddharth Camacho MD ?? Date of Service: 09/11/24 ?? Procedure(s): XR knee LT 4V ?? Accession Number(s): [id number] ? cc: Siddharth Camacho MD ? EXAMINATION: ?? XR KNEE, LEFT ? CLINICAL INFORMATION: ?? left knee pain ? COMPARISON: ?? None available. ? TECHNIQUE: ?? Four views of the left knee. ? FINDINGS: ?? There is no joint effusion. ? Joint spaces are preserved. ?? There are no osteophytes. ? Oval soft tissue ossification is present along the lateral distal ?? thigh. ? XR/XR knee LT 4V ?? IMPRESSION: ?? Unremarkable left knee. ? Electronically signed by: ??Raulito Sarabia MD ??09/11/2024 03:17 PM EDT ?? RP ? Dictated By: ?Raulito Sarabia MD ? Signed By: ?<Electronically signed by Raulito Sarabia MD in OV> ?09/11/24 1517 ? DD/ 1451 ? TD/TT: 09/11/24 1500 ? Housekeeping Room Inspector: ? Procedure Note Janell, Liliam - 09/11/2024 [facility] [address] [place] [address] XRay Report Signed Patient: Lorenza Antunez DMR#: [id number] : 1970Acct:[id number] Age/Sex: 54 / FADM Date: 09/11/24 Loc: HO.HHCX Attending Dr: Siddharth Camacho MD Ordering Physician: Siddharth Camacho MD Date of Service: 09/11/24 Procedure(s): XR knee LT 4V Accession Number(s): [id number] cc: Siddharth Camacho MD EXAMINATION: XR KNEE, LEFT CLINICAL INFORMATION: left knee pain COMPARISON: None available. TECHNIQUE: Four views of the left knee. FINDINGS: There is no joint effusion. Joint spaces are preserved. There are no osteophytes. Oval soft tissue ossification is present along the lateral distal thigh. XR/XR knee LT 4V IMPRESSION: Unremarkable left knee. Electronically signed by: Raulito Sarabia MD 09/11/2024 03:17 PM EDT Dictated By: Raulito Sarabia MD Signed By: <Electronically signed by Raulito Sarabia MD in OV> 09/11/24 1517 DD/ 1451 TD/TT: 09/11/24 1500 Housekeeping Room Inspector: us Siddharth Harrison MD IMG XR PROCEDURES Fin al Result * XR Knee 4+ Views Right (09/11/2024 2:51 PM EDT) Anatomical Region Laterality Modality Lower Extremities, Knee Right [facility] 09/11/2024 2:51 PM EDT Narrative 09/11/2024 3:22 PM EDT ?[facility] ?[address] ?[place] [address] ?XRay Report ? Signed ? Patient: Page Cruz,Lorenza D ?MR#: ?? [id number] ? : 1970 ?Acct:[id number] ? Age/Sex: 54 / F ?ADM Date: 06/03/25 ? Loc: HO.HHCX ? Attending Dr: Siddahrth Camacho MD ? Ordering Physician: Siddharth Camacho MD ?? Date of Service: 09/11/24 ?? Procedure(s): XR knee RT 4V ?? Accession Number(s): [id number] ? cc: Siddharth Camacho MD ? EXAMINATION: ?? XR KNEE, RIGHT ? CLINICAL INFORMATION: ?? right knee pain ? COMPARISON: ?? None available. ? TECHNIQUE: ?? Four views of the right knee. ? FINDINGS: ?? Joint spaces are preserved. ?? There are no marginal osteophytes. ?? There is no joint effusion. ?? No bony abnormality is evident. ? XR/XR knee RT 4V ?? IMPRESSION: ?? Unremarkable right knee. ? Electronically signed by: ??Raulito Sarabia MD ??09/11/2024 03:19 PM EDT ?? RP ? Dictated By: ?Raulito Sarabia MD ? Signed By: ?<Electronically signed by Raulito Sarabia MD in OV> ?09/11/24 1519 ? DD/ 1451 ? TD/TT: 09/11/24 1500 ? Housekeeping Room Inspector: ? Procedure Note Liliam Maciel - 09/11/2024 [place] [address] XRay Report Signed Patient: Lorenza Antunez DMR#: [id number] : 1970Acct:[id number] Age/Sex: 54 / FADM Date: 09/11/24 Loc: HO.HHCX Attending Dr: Siddharth Camacho MD Ordering Physician: Siddharth Camacho MD Date of Service: 09/11/24 Procedure(s): XR knee RT 4V Accession Number(s): [id number] cc: Siddharth Camacho MD EXAMINATION: XR KNEE, RIGHT CLINICAL INFORMATION: right knee pain COMPARISON: None available. TECHNIQUE: Four views of the right knee. FINDINGS: Joint spaces are preserved. There are no marginal osteophytes. There is no joint effusion. No bony abnormality is evident. XR/XR knee RT 4V IMPRESSION: Unremarkable right knee. Electronically signed by: Raulito Sarabia MD 09/11/2024 03:19 PM EDT RP Dictated By: Raulito Sarabia MD Signed By: <Electronically signed by Raulito Sarabia MD in OV> 09/11/24 1519 DD/ 1451 TD/TT: 09/11/24 1500 Housekeeping Room Inspector: us Siddharth Harrison MD IMG XR PROCEDURES Fin al Result documented in this encounter Visit Diagnoses Diagnosis Paronychia of finger, right- Primary Acute pain of both knees documented in this encounter Additional Health Concerns Assessment Noted Time PHQ-9 Depression Total Score: 6 07/25/19 25 2:32 PM EDT documented as of this encounter Care Teams Reclamation Supervisor Relationship Specialty Start Date End Date Kamla Becerra ANP [address] [place] [phone] PCP - General Family Medicine 12/28/23 [facility] 07/09/24 documented as of this encounter
== END 2024-09-11 14:52 | disposition home or self-care (01) ==
LOC: HO.HHCX 14:51
PROVIDERS: Visit Provider Internal Medicine
DX: M25.561 Pain in right knee (principal); M25.562 Pain in left knee
CPT/HCPCS: 73564

== ENCOUNTER → 2024-09-11 14:51 | Outpatient (BNV) | payer MEDICAID, SELFPAY | PROVIDERS: Visit Provider Radiology Diagnostic Radiology | DX: M25.561 Pain in right knee (principal); M25.562 Pain in left knee | CPT/HCPCS: 73564 ==

== ENCOUNTER 2024-11-09 10:54 | Outpatient (REF) | payer MEDICAID, SELFPAY ==
--- OUTSIDE RECORDS SUMMARY | 2024-11-09 11:05 | XMS_ITS | Clinical Summary ---
Author Organization [facility] Address [address] [place] [address] Phone Care Team Providers Care Sap Bpc Developer Name Role Phone Mariam Kamla Hale NP Primary Care Provider [phone] Allergies Active Allergy Reactions Criticality Noted Date [...] AFTER 12 HOURS OR DIRECTED BY MD. 12/14/19 24 Active lurasidone (LATUDA) 60 mg [...] mg total) by mouth. 06/30/19 23 Active ciclopirox (PENLAC) 8 % solution Apply topically at bedtime. Apply over nail and surrounding skin. Apply daily over previous coat. After seven (7) days, may remove with alcohol and continue cycle. 6.6 mL 3 10/17/19 25 025 Active Encounters Date Type Department Care Team Description 10/16/2024 1:15 PM EDT Office Visit Orthopedic Surgery - [place] [address] [facility] [address] [place] [address] Musa Camraa, DPM Dermatophytosis of nail (Primary Dx); Tinea pedis of both feet; Pain in toe of left foot; Pain in toe of right foot; Diabetic mononeuropathy simplex (CMS/HCC V24, CMS/HCC V28) 08/13/2024 8:02 AM EDT - 08/13/2024 11:59 PM EDT Hospital Encounter [facility] CT Scan [address] [place] [address] Nasal obstruction Discharge Disposition: Home or Self Care from Last 3 Months Family History Medical [...] Care Team (Late st Contact Info) Description 01/16/2025 1:15 PM EDT Office Visit Orthopedic Surgery - [place] [phone] [phone] Musa Camara, DPM [address] [address] Health Maintenance Due Date Last Done Comments Diabetes: Annual Foot Exam 1978 Diabetes: Annual Retina Eye Exam 1978 Hepatitis A Vaccines (1 of 2 - Risk 2-dose series) 1987 Zoster Vaccines (1 of 2) 2018 Colorectal Cancer Screening: Colonoscopy 03/09/2022 Hepatitis C Screening 03/09/2022 Social Influencers of Health Screening 03/09/2022 Depression Screening 04/11/2024 Diabetes: Annual Urine Albumin-Creatinine Ratio (uACR) 07/11/2024 Hepatitis B Vaccines (2 of 3 - 19+ 3-dose series) 10/29/2024 10/01/2024 Cervical Cancer Screening: Pap Smear 11/17/2024 11/17/2021 Influenza Vaccine (#1) 2024 , 01/20/2020, 03/30/2018 Diabetes: Annual GFR (Glomerular Filtration Rate) 02/20/2025 02/21/2024 Hypertension/CHF/CAD Annual BMP Blood Test 02/20/2025 02/21/2024 Diabetes: Blood Sugar Control Test (HGBA1C) 04/02/2025 10/01/2024, 02/21/2024 Breast Cancer Screening 03/21/2026 03/21/2024, 07/16 Cholesterol Screening (Lipid Panel) 02/20/2029 02/21/2024 DTaP,Tdap,and Td Vaccines (2 - Td or Tdap) 12/27/2033 12/28/2023 Pneumococcal Vaccine: 50+ Years Completed 12/28/2023, 01/20/2020 COVID-19 Vaccine Completed 02/21/2024, 04/2021, 12/31/2021, Additional history exists HIV Screening Completed 07/17/2024, 04/24/2024 HIB Vaccines Aged Out No longer [...] Procedure Name Priority Date/Time Associated Diagnosis Comments CT SINUSES WO CONTRAST Routine 08/13/2024 8:19 AM EDT Nasal obstruction MG MAMMO DIGITAL SCREENING W EMILIO BILAT Routine 03/21/2024 11:08 AM EST Breast screening from Last 3 Months or Most Recently Relevant to Health Maintenance Results * CT Sinuses wo Contrast (08/13/2024 8:19 AM EDT) Anatomical Region Laterality Modality Head and Neck Computed Tomogra phy 08/14/2024 12:0 9 PM EDT Impressions 08/14/2024 12:30 PM EDT Inferior right maxillary sinus retention cyst. Otherwise clear sinuses. Rightward nasal septal deviation with bony spur contacting the right inferior turbinate. -------- FINAL REPORT -------- Dictated By: EVANGELINA COLBERT Dictated Date: 08/14/2024 12:09 ET Assigned Physician: EVANGELINA COLBERT Reviewed and Electronically Signed By: EVANGELINA COLBERT Signed Date: 08/14/2024 12:30 ET Workstation ID: [id number] Transcribed By: Self Edit Transcribed Date: 08/14/2024 12:29 ET Narrative 08/14/2024 12:30 PM EDT PROCEDURE: Sinus CT INDICATION: Nasal obstruction TECHNIQUE: CT of the sinuses without intravenous contrast. Multiplanar reformats. The examination was performed utilizing dose reduction techniques. Total DLP 255 COMPARISON: No priors available. FINDINGS: The frontal sinuses are clear. Ethmoid air cells are clear. Sphenoid sinuses are clear. Aerated anterior clinoid processes are noted. Small retention cyst at the inferior aspect of the right maxillary sinus. Maxillary sinuses are otherwise clear. No fluid levels or reactive new bone formation. There is rightward nasal septal deviation with bony spur contacting the right inferior turbinate. No mass within the nasal cavity. Cribriform plates and anterior ethmoid artery impressions are within normal limits. No fracture. Visualized intracranial structures are normal. Globes and orbits are normal. Skull base soft tissues are normal. Procedure Note Evangelina Colbert MD - 08/14/2024 PROCEDURE: Sinus CT INDICATION: Nasal obstruction TECHNIQUE: CT of the sinuses without intravenous contrast. Multiplanarreformats. The examination was performed utilizing dose reductiontechniques. Total DLP 255 COMPARISON: No priors available. FINDINGS: The frontal sinuses are clear. Ethmoid air cells are clear. Sphenoid sinuses are clear. Aerated anterior clinoid processes arenoted. Small retention cyst at the inferior aspect of the right maxillary sinus.Maxillary sinuses are otherwise clear. No fluid levels or reactive new bone formation. There is rightward nasal septal deviation with bony spur contacting theright inferior turbinate. No mass within the nasal cavity. Cribriformplates and anterior ethmoid artery impressions are within normal limits. No fracture. Visualized intracranial structures are normal. Globes and orbits arenormal. Skull base soft tissues are normal. IMPRESSION: Inferior right maxillary sinus retention cyst. Otherwise clear sinuses. Rightward nasal septal deviation with bony spur contacting the rightinferior turbinate. -------- FINAL REPORT -------- Dictated By: EVANGELINA COLBERT Dictated Date: 08/14/2024 12:09 ET Assigned Physician: EVANGELINA COLBERT Reviewed and Electronically Signed By: EVANGELINA COLBERT Signed Date: 08/14/2024 12:30 ET Workstation ID: [id number] Transcribed By: Self Edit Transcribed Date: 08/14/2024 12:29 ET Kamla Becerra TELEHEALTH NURSE IMG CT PROCEDURES Final Result * MG Mammo Digital Screening w Emilio bilat (03/21/2024 11:08 AM EST) Anatomical Region Laterality Modality Breast Bilateral Mammography 03/21/2024 6:00 PM EST Impressions 03/21/2024 6:06 PM EST No mammographic evidence of malignancy. No suspicious interval change. A negative mammogram in the presence of a clinically suspicious palpable abnormality does not preclude the possibility of malignancy or alter the indications for biopsy. ASSESSMENT: BI-RADS 2: BENIGN RECOMMENDATION(S): 1: Routine screening mammogram BILATERAL in 1 year. -------- FINAL REPORT -------- Dictated By: Reji Bills Dictated Date: 03/21/2024 18:00 ET Assigned Physician: Reji Bills Reviewed and Electronically Signed By: Reji Bills Signed Date: 03/21/2024 18:06 ET Workstation ID: [id number] Transcribed By: Self Edit Transcribed Date: 03/21/2024 18:00 ET Narrative 03/21/2024 6:06 PM EST EXAM: SCREENING MAMMOGRAPHY, BILATERAL HISTORY: SCREENING. Family history of breast cancer, sister and maternal grandmother COMPARISON: 01/20/2022, 07/15/2020 TECHNIQUE: Synthesized CC and MLO projections of each breast. Tomosynthesis of each breast in the CC and MLO projections. ADDITIONAL IMAGING: Craniocaudal view of the left breast exaggerated toward the axilla using Tomosynthesis Computer-aided detection was employed with the [employer] profound AI 3-D. TISSUE DENSITY: The breasts are heterogeneously dense, which may obscure small masses. (BI-RADS category C) FINDINGS: RIGHT BREAST: No suspicious mass. No suspicious calcification. No distortion. No additional suspicious right breast findings LEFT BREAST: There are several rounded amorphous calcifications in the upper outer left breast. These appear similar to previous studies. These can be monitored at the time of annual screening. No additional suspicious left breast findings Procedure Note [...] Tomosynthesis Computer-aided detection was employed with the [employer] profound AI 3-D. TISSUE DENSITY: The breasts [...] Signed Date: 03/21/2024 18:06 ET Workstation ID: [id number] Transcribed By: Self Edit Transcribed Date: 03/21/2024 18:00 ET Mackenzie Mahajan CNM IMG BI PROCEDURES Final R esult from Last 3 Months or Most Recently Relevant to Health Maintenance Insurance * Guarantor: Brenna Antunez Account Type Relation to Patient Date of Phone Billing Address Personal/Family Self [address] [address] MEDICA[place] - [place] Care Teams Sap Bpc Developer Relationship Specialty Start Date End Date Kamla Becerra NP [address] [address] PCP - General 03/01/24
[2024-11-09 11:09] LABS: MANUAL DIFF FLAG NO
[2024-11-09 11:37] LABS: Hematocrit 33.3 % (37.0-47.0); Hemoglobin 11.0 g/dl (12.0-16.0); Imm Gran Abs Auto 0.01 X10*3/uL (0.00-0.03); Imm Gran Pct Auto 0.2 % (0.0-0.4); Lymphocytes Absolute Auto 2.7 X10*3/uL (1.2-4.9); Mean Corpuscular HGB Conc 33.0 g/dl (31.0-35.0); Mean Corpuscular Hemoglobin 27.5 pg (27.0-33.0); Mean Corpuscular Volume 83.3 fL (80.0-98.0); NRBC Abs Auto 0.000 X10*3/uL (0.0-0.012); NRBC Pct Auto 0.0 /100WBC (0.0-0.2); Platelet Count 361 X10*3/uL (160-400); Red Blood Count 4.00 X10*6/uL (4.20-5.50); White Blood Count 5.3 X10*3/uL (4.8-10.8)
[2024-11-09 11:49] LABS: Appearance Urine Cloudy; Glucose Urine UA 100 mg/dL (Negative); PH 7.0 (5.0-9.0); Specific Gravity - Urine 1.015 (1.005-1.025); UMIC TRIGGER UA YES
[2024-11-09 12:03] LABS: Cholesterol 136 mg/dL (<200); Estimated Glomerular Filt Rate > 60; HDL Cholesterol 64 mg/dL (>40); Iron 37 mcg/dL (30-160); Percent Iron Saturation 10 % (15-50); Total Iron Binding Capacity 380 mcg/dL (228-428); Triglycerides 86 mg/dL (<150); Unsaturated Iron Binding 343 ug/dL
[2024-11-09 12:33] LABS: Hemoglobin A1C 127.7193 umol/L; Total Hemoglobin (HGBA1C) 2954.6167 umol/L
[2024-11-09 13:01] LABS: Syphilis Screen Nonreactive (Nonreactive)
[2024-11-09 13:37] LABS: Vitamin B12 651 pg/mL (200-900)
[2024-11-09 13:49] LABS: HIV Num 1 0.06 S/CO (0.00-0.99)
[2024-11-13 13:38] LABS: HCV Log PCR <1.18 NOT DETECTED Log IU/mL (NOT DETECTED); HepC Viral Load <15 NOT DETECTED IU/mL (NOT DETECTED)
== END 2024-11-09 10:55 | disposition home or self-care (01) ==
LOC: HO.LAB 10:54
PROVIDERS: Absent Provider Advanced Practice Midwife; PCP Nurse Practitioner Primary Care; Visit Provider Nurse Practitioner Primary Care
DX: E11.630 Type 2 diabetes mellitus with periodontal disease (principal); D64.9 Anemia, unspecified; Z11.4 Encounter for screening for human immunodeficiency virus [HIV]; E78.5 Hyperlipidemia, unspecified; Z11.59 Encounter for screening for other viral diseases; Z11.3 Encounter for screening for infections with a predominantly sexual mode of transmission; R82.90 Unspecified abnormal findings in urine; Z79.899 Other long term (current) drug therapy; Z86.19 Personal history of other infectious and parasitic diseases
CPT/HCPCS: 36415; 80061; 81001; 82565; 82607; 83036; 83540; 85025; 86780; 87086; 87147; 87389; 87522

== ENCOUNTER 2025-01-03 13:35 | Outpatient (REF) | payer MEDICAID, SELFPAY ==
--- OUTSIDE RECORDS SUMMARY | 2025-01-03 10:30 | XMS_ITS | Encounter Summary ---
Author Organization [employer] Address [address] [facility] 7t [place] [address] Care Team Providers Care Golf Cart Attendant Name Role Phone Kamla Becerra Primary Care Provider [phone] Reason for Visit * Reason Comments Follow-up Encounter Details Date Type Department Care Team (Latest Contact Info) Description 01/03/2025 10:30 AM EDT Office Visit 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 I have freya duran 01/03/[address] you li ve. Do you have problems with any of the following? None of the above 01/03/2025 Food Insecurity Answer Date Recorded Within the past 12 months, y ou worried that your food would run out before you got money to buy more: Never True 01/03/2025 Within the past 12 months,th e food you bought just didn't last and you didn't have enough money to get more: Never True Transportation Answer Date Recorded In the past 12 months, has l ack of transportation kept you from medical appts, meetings, work or from getting things needed for daily living? No 01/03/2025 Utilities Answer Date Recorded In the past 12 months, has t he electric, gas, oil or water company threatened to shut off services in your home? No 01/03/2025 Depression Answer Date Recorded Patient Health Questionnaire-2 Score 0 07/24/2024 Internet Access Answer Date Recorded Internet Access Q1 Yes 01/03/2025 Internet Access Q2 Not on file 01/03/2025 Comments No Sex and Gender Information Value Date Recorded Sex Assigned at Female 12/28/2023 2:07 PM EDT Legal Sex Female 3:25 PM EDT Gender Identity Female 12/28/2023 2:07 PM EDT Sexual Orientation Bisexual 12/28/2023 2: 07 PM EDT documented as of this encounter Last Filed Vital Signs Vital Sign Reading Time Taken Comments Blood Pressure 130/80 01/03/2025 10:43 AM EDT Pulse 95 01/03/2025 10:43 AM EDT Temperature 36.7 C (98.1 F) 01/03/2025 10:43 AM EDT Respiratory Rate 20 01/03/2025 10:43 AM EDT Oxygen Saturation 99% 01/03/2025 10:43 AM EDT Inhaled Oxygen Concentration - - Weight 46.8 kg (103 lb 2 oz) 01/03/2025 10:43 AM EDT Height 162.6 cm (5' 4 ) 01/03/2025 10:43 AM EDT Body Mass Index 17.7 01/03/2025 10:43 AM EDT documented in this encounter Functional Status * Over the last 2 weeks, how often have you been bothered by any of the following problems? Question Answer Date of Assessment Author Feeling nervous, anxious, or on edge 1 01/03/2025 11:40 AM EDT Ramya Delaney MA Not being able to stop or co ntrol worrying 1 01/03/2025 11:40 AM EDT Ramya Delaney MA Worrying too much about diff erent things 1 01/03/2025 11:40 AM EDT Ramya Delaney MA Trouble relaxing 0 01/03/2025 11:40 AM EDT Ramya Delaney MA Being so restless that it is hard to sit still 2 01/03/2025 11:40 AM EDT Ramya Delaney MA Becoming easily annoyed or irritable 0 01/03/2025 11:40 AM EDT Ramya Delaney MA Feeling afraid as if somethi ng awful might happen 2 01/03/2025 11:40 AM EDT Ramya Delaney MA DONNY-7 Total Score 7 01/03/2025 11:40 AM EDT Ramya Delaney MA documented as of this encounter Patient Instructions * Patient Instructions* RICKY Gabriel - 01/03/2025 10:30 AM EDT Please call [facility] to schedule Lumbar MRI: [phone] For her MRI of MR ORBIT W+WO CONTRAST, MR BRAIN W+WO CONTRAST that were done 12/16/23 - these were ordered by Dr. Uribe and done at [facility] - please Contact [facility] torequest they send the original film or to get a copy of the CD at: [id number] [facility], [place] [address] documented in this encounter Plan of Treatment Upcoming Encounters Date Type Department Care Team (Late st Contact Info) Description 01/10/2025 11:30 AM EDT Office Visit 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, without long-term current use of insulin ([facility]) documented in this encounter Results * (ABNORMAL) POCT Urinalysis (01/03/2025 10:53 AM EDT) Color, UA Yellow Clarity, UA Clear Glucose, UA Negative Bilirubin, UA Negative Ketones, UA Negative Spec Grav, UA 1.015 Blood, UA Negative Negative, None Detected pH, UA 6.0 Protein, UA Negative Urobilinogen, UA 0.2 Leukocytes, UA Negative Negative, Rare, Trace Nitrite, UA Positive(A) Negative, None Detected QC Media Lot # [id number] Lot# Expiration Date [id number] Urine 01/03/2025 10:5 3 AM EDT Kamla GARCÍA POINT OF CARE TEST ENTER/EDIT OR DERABLES Final Result * POCT Glucose (01/03/2025 10:44 AM EDT) Glucose Blood, POC 127 60 - 200 mg/dL QC Media Lot # [id number] Lot# Expiration Date ,[id number] Blood Capillary blood specimen / Unknown 01/03/2025 10:44 AM EDT Kamla GARCÍA POINT OF CARE TEST ENTER/EDIT OR DERABLES Final Result documented in this encounter Visit Diagnoses Diagnosis Lumbar back pain with radiculopathy affecting right lower extremity- Primary 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
--- OUTSIDE RECORDS SUMMARY | 2025-01-03 18:08 | XMS_ITS | Encounter Summary ---
Author Organization [employer] Address [address] [facility] 7t [place] [address] Care Team Providers Care Passenger Car Conductor Name Role Phone Kamla Becerra Primary Care Provider [phone] Julien Mckay RN Unavailable [phone] Reason for Visit * Reason Comments Med Refill Encounter Details Date Type Department Care Team (Late st Contact Info) Description 08/20/2024 Refill [facility] [address] [place] [address] Saida Downs MD [address] [place] [address] Social History Tobacco Use Types Packs/Day Years [...] Description 01/10/2025 11:30 AM EDT Office Visit [facility] [address] [place] [address] Mackenzie Mahajan CNM [address] [place] [address] documented as of this encounter Visit Diagnoses Not on filedocumented in this encounter Additional Health Concerns Assessment Noted Time PHQ-9 Depression Total Score: 6 07/25/19 25 2:32 PM EDT documented as of this encounter Care Teams Passenger Car Conductor Relationship Specialty Start Date End Date Kamla Becerra ANP [address] [place] [address] PCP - General Family Medicine 12/28/23 Julien Mckay RN [address] [place] [address] Carpenter InspectorManager Of Network 07/10/24 09/09/24 [facility] 07/09/24 documented as of this encounter
--- OUTSIDE RECORDS SUMMARY | 2025-01-03 18:08 | XMS_ITS | Encounter Summary ---
Author Organization [employer] Address [address] [facility] 7t [place] [address] Care Team Providers Care Pharmacy Tech Customer Service Name Role Phone Kamla Becerra Primary Care Provider [phone] Julien Mckay RN Unavailable [phone] Reason for Visit * Reason Comments Med Refill Encounter Details Date Type Department Care Team (Late st Contact Info) Description 07/05/2024 Refill [facility] [address] [place], [place] [phone] Kamla Becerra ANP [address] [place] [address] Social History Tobacco Use Types Packs/Day Years [...] Description 01/10/2025 11:30 AM EDT Office Visit [facility] [address] [place] [address] Mackenzie Mahajan CNM [address] [place] [address] documented as of this encounter Visit Diagnoses Not on filedocumented in this encounter Additional Health Concerns Assessment Noted Time PHQ-9 Depression Total Score: 24 024 2:35 PM EDT documented as of this encounter Care Teams Pharmacy Tech Customer Service Relationship Specialty Start Date End Date Kamla Becerra ANP [address] [place] [address] PCP - General Family Medicine 12/28/23 Julien Mckay RN [address] [place] [address] [place] [address] Admissions CounselorShaft Headman 07/10/24 09/09/24 [facility] 07/09/24 documented as of this encounter
--- OUTSIDE RECORDS SUMMARY | 2025-01-03 18:08 | XMS_ITS | Encounter Summary ---
Author Organization [employer] Address [address] [facility] 7t [place] [address] Care Team Providers Care Racecar Driver Name Role Phone Kamla Becerra Primary Care Provider [phone] Reason for Visit * Reason Comments Med Refill Encounter Details Date Type Department Care Team ([facility] st Contact Info) Description 12/03/2024 Refill [facility] [address] [place], [place] [phone] Kamla Becerra ANP [address] [place] [address] Partial thickness burn of single finger of right hand excluding thumb, subsequent encounter Social History Tobacco Use Types Packs/Day Years [...] Description 01/10/2025 11:30 AM EDT Office Visit [facility] [address] [place] [address] Mackenzie Mahajan CNM [address] [place] [address] documented as of this encounter Visit Diagnoses Diagnosis Partial thickness burn of single finger of right hand excluding thumb, subsequent encounter documented in this encounter Additional Health Concerns Assessment Noted Time PHQ-9 Depression Total Score: 6 07/25/19 25 2:32 PM EDT documented as of this encounter Care Teams Racecar Driver Relationship Specialty Start Date End Date Kamla Becerra ANP [address] [place] [address] PCP - General Family Medicine 12/28/23 [facility] 07/09/24 documented as of this encounter
--- OUTSIDE RECORDS SUMMARY | 2025-01-03 18:08 | XMS_ITS | Encounter Summary ---
Author Organization [employer] Address [address] [facility] 7t [place] [address] Care Team Providers Care Washing Machine Installer Name Role Phone Kamla Becerra Primary Care Provider [phone] Julien Mckay RN Unavailable [phone] Reason for Visit * Reason Onset Date Comments Call Back Request 06/21/2024 Encounter Details Date Type Department Care Team (Late st Contact Info) Description 06/21/2024 Telephone [facility] [address] [place], [place] [phone] Kamla Becerra ANP [address] [place], [place] [phone] Call Back Request (/) Social History Tobacco [...] AM EDT Call returned to Sara at [facility] who states she received order for wound care. Sara states [facility] needs office note to be faxed to either [phone] or [phone]. Sara also requesting clarification of order. Sara asking if provider would like xeroform or some other type of dressing? Asking if provider would like a dry, clean dressing and daily assessment? Advised request will be forwarded to ordering provider. * Telephone Encounter - [place] - 06/21/2024 10:47 AM EDT Tc from Sara with [facility] requesting a call back from nurses regarding wound care order. [phone] (direct line) documented in this encounter Plan of Treatment Upcoming Encounters Date Type Department Care Team (Late st Contact Info) Description 01/10/2025 11:30 AM EDT Office Visit [facility] [address] [place], [place] [phone] Mackenzie Mahajan CNM [address] [place] [address] documented as of this encounter Visit Diagnoses Not on filedocumented in this encounter Additional Health Concerns Assessment Noted Time PHQ-9 Depression Total Score: 24 024 2:35 PM EDT documented as of this encounter Care Teams Washing Machine Installer Relationship Specialty Start Date End Date Kamla Becerra ANP [address] [place] [address] PCP - General Family Medicine 12/28/23 Julien Mckay, YARI [address] [place] [address] Roller Print TenderLitigation Partner 07/10/24 09/09/24 [facility] 07/09/24 documented as of this encounter
--- OUTSIDE RECORDS SUMMARY | 2025-01-03 18:08 | XMS_ITS | Encounter Summary ---
Author Organization [employer] Address [address] [facility] 7t [place] [address] Care Team Providers Care Project Construction Manager Name Role Phone Kamla Becerra Primary Care Provider [phone] Reason for Visit * Reason Onset Date Comments Call Back Request 11/30/2024 Encounter Details Date Type Department Care Team ([facility] st Contact Info) Description 11/30/2024 Telephone [facility] [address] [place], [place] [phone] Kamla Becerra ANP [address] [place] [address] Call Back Request Social History Tobacco Use [...] encounter Miscellaneous Notes * Telephone Encounter - Anita Walker - 11/30/2024 9:41 AM EDT Tc from Suzy Pepper at [facility] stating Kathryn has not received any order for MRI for pt , is requesting a call back to discuss Contact Suzy at [phone] documented in this encounter Plan of Treatment Upcoming Encounters Date Type Department Care Team (Late st Contact Info) Description 01/10/2025 11:30 AM EDT Office Visit [facility] [address] [place] [address] Mackenzie Mahajan CNM [address] [place] [address] documented as of this encounter Visit Diagnoses Not on filedocumented in this encounter Additional Health Concerns Assessment Noted Time PHQ-9 Depression Total Score: 6 07/25/19 25 2:32 PM EDT documented as of this encounter Care Teams Project Construction Manager Relationship Specialty Start Date End Date Kamla Becerra ANP [address] [place] [address] PCP - General Family Medicine 12/28/23 [facility] 07/09/24 documented as of this encounter
--- OUTSIDE RECORDS SUMMARY | 2025-01-03 18:09 | XMS_ITS | Encounter Summary ---
Author Organization [employer] Address [address] [facility] 7t [place] [address] Care Team Providers Care Solar Sales Representative And Assessor Name Role Phone Kamla Becerra RICKY Primary Care Provider [phone] Encounter Details Date Type Department Care Team (Latest Contact Info) Description 01/03/2025 Travel Social History Tobacco Use Types Packs/Day [...] is your housing situation today? I have freyaerica duran 01/03/[address] you [...] PM EDT documented as of this encounter Functional Status * Over the [...] things 1 01/03/2025 11:40 AM EDT Ramya Delanye MA Trouble relaxing 0 01/03/2025 11:40 AM [...] Delaney [place] documented as of this encounter Plan of Treatment Upcoming Encounters Date Type Department Care Team ([facility] st Contact Info) Description 01/10/2025 11:30 AM EDT Office Visit [facility] [address] [place] [address] Mackenzie Mahajan CNM [address] [place] [address] documented as of this encounter Visit Diagnoses Not on filedocumented in this encounter Additional Health Concerns Assessment Noted Time PHQ-9 Depression Total Score: 6 07/25/19 25 2:32 PM EDT documented as of this encounter Care Teams Solar Sales Representative And Assessor Relationship Specialty Start Date End Date Kamla Becerra ANP [address] [place] [address] PCP - General Family Medicine 12/28/23 [facility] 07/09/24 documented as of this encounter
--- OUTSIDE RECORDS SUMMARY | 2025-01-03 18:09 | XMS_ITS | Encounter Summary ---
Author Organization [employer] Address 75 [facility] 7t [place] [address] Care Team Providers Care Sociology Research Assistant Name Role Phone Kamla Becerra Primary Care Provider [phone] Reason for Visit * Reason Onset Date Comments chart prep 01/01/2025 Encounter Details Date Type Department Care Team ([facility] st Contact Info) Description 01/01/2025 Telephone [facility] [address] [place], [place] [phone] Kamla Becerra ANP [address] [place] [address] chart prep Social History Tobacco Use Types Packs/Day Years [...] encounter Miscellaneous Notes * Telephone Encounter - Ramya Delaney MA - 01/01/2025 3:11 PM EDT Chart Prep Labs: done Images: not done Referrals: complete Vaccines due: Flu, Hep B, and Zoster Screenings: colonoscopy, eye exam, and foot exam Overdue care gaps: SDOH, DONNY-7, and Oral health screening documented in this encounter Plan of Treatment Upcoming Encounters Date Type Department Care Team (Late st Contact Info) Description 01/10/2025 11:30 AM EDT Office Visit [facility] [address] [place] [address] Mackenzie Mahajan CNM [address] [place] [address] documented as of this encounter Visit Diagnoses Not on filedocumented in this encounter Additional Health Concerns Assessment Noted Time PHQ-9 Depression Total Score: 6 07/25/19 25 2:32 PM EDT documented as of this encounter Care Teams Sociology Research Assistant Relationship Specialty Start Date End Date Kamla Becerra ANP [address] [place] [address] PCP - General Family Medicine 12/28/23 [facility] 07/09/24 documented as of this encounter
--- OUTSIDE RECORDS SUMMARY | 2025-01-03 18:09 | XMS_ITS | Encounter Summary ---
Author Organization [employer] Address [address] [facility] 7t [place] [address] Care Team Providers Care Watch Crystal Cutter Name Role Phone Kamla Becerra Primary Care Provider [phone] Julien Mckay RN Unavailable [phone] Reason for Visit * Reason Onset Date Comments Appointment Request 03/02/2024 Encounter Details Date Type Department Care Team (Late st Contact Info) Description 03/02/2024 Telephone [facility] MED[facility]INE [address] [place], [place] [phone] Kamla Becerra ANP [address] [place], [place] [phone] Appointment Request Social History Tobacco Use Types [...] R/s appt for 03/05. Contact Shelley at [phone] documented in this encounter Plan of Treatment Upcoming Encounters Date Type Department Care Team (Late st Contact Info) Description 01/10/2025 11:30 AM EDT Office Visit [facility] [address] [place] [address] Mackenzie Mahajan CNM [address] [place] [address] documented as of this encounter Visit Diagnoses Not on filedocumented in this encounter Additional Health Concerns Assessment Noted Time PHQ-9 Depression Total Score: 24 024 2:35 PM EDT documented as of this encounter Care Teams Watch Crystal Cutter Relationship Specialty Start Date End Date Kamla Becerra ANP [address] [place] [address] PCP - General Family Medicine 12/28/23 Julien Mckay RN [address] [place] [address] Learning And Development SpecialistRoller Coaster Operator 07/10/24 09/09/24 [facility] 07/09/24 documented as of this encounter
--- OUTSIDE RECORDS SUMMARY | 2025-01-03 18:09 | XMS_ITS | Clinical Summary ---
Author Organization [employer] Address [address] [facility] [address] [place] [address] Care Team Providers Care Transmission Systems Operator Name Role Phone Mariam Kamla GARCÍA Primary Care Provider [phone] Allergies Active Allergy Reactions Criticality Noted Date Comments Penicillins Rash Low 12/28/2023 Medications * This document contains information received from the source organization and may not represent a complete record from that organization. benztropine (Cogentin) 1 MG tablet 12/05/19 24 Active cloNIDine (Catapres) 0.2 MG tablet 09/26/19 24 Active fenofibrate (Triglide) 160 MG tablet 12/13/19 24 Active FREESTYLE LITE test strip 11/30/19 24 Active haloperidol (Haldol) 1 MG tablet 11/03/19 24 Active hydrOXYzine HCl (Atarax) 25 MG tablet 12/05/19 24 Active lactulose (Enulose) 10 GM/15ML solution oral solution 11/15/19 24 Active Lancets (Safety Lancet 30G/Pressure Act) misc 05/02/19 24 Active levothyroxine (Synthroid, Levoxyl) 25 MCG tablet 06/03/19 24 Active Melatonin 5 MG tablet dispersible 11/03/19 24 Active naloxone (Narcan) 4 mg/0.1 mL nasal spray 03/18/20 23 Active naltrexone (Depade) 50 MG tablet 11/15/19 24 Active Stimulant Laxative 8.6-50 MG tablet 09/21/19 24 Active traZODone (Desyrel) 100 MG tablet TAKE 2 TABLETS BY MOUTH AT BEDTIME 30 tablet 2 03/06/20 24 Active Diclofenac Sodium (Voltaren) 1 % gelIndications:Ch ronic pain of left knee Apply 2g up to 4x/d to affected joint(s) for pain/swellin g 100 g 1 07/25/19 25 Active fluticasone (Flonase) 50 MCG/ACT nasal sprayIndications: Nasal obstruction 1-2 sprays in L nostril daily for 1 mo. Shake gently. Before first use, prime pump. After use, clean tip and replace cap. 16 g 07/25/19 25 Active ondansetron ODT (Zofran-ODT) 4 MG disintegrating tablet DISSOLVE 1 TABLET ON THE TONGUE 3 TIMES A DAY NEEDED FOR NAUSEA 90 tablet 08/08/19 25 Active omeprazole (PriLOSEC) [address] capsule Take one pill daily Do not crush or chew. 30 capsule 3 09/12/19 25 Active thiamine (Vitamin B-1) 100 MG tabletIndications :Alcohol use disorder Take 1 tablet (100 mg) by mouth Once per day. 90 tablet 3 10/02/19 25 Active folic acid (Folvite) 1 MG tabletIndications :Alcohol use disorder Take 1 tablet (1 mg) by mouth Once per day. 90 tablet 3 10/02/19 25 Active estradiol (Estrace) 0.1 MG/GM vaginal cream 1g (one fingertip) vaginally twice weekly 45 g 2 10/16/19 25 Active lidocaine (Lidoderm) 5 % patch APPLY 1 PATCH TOPICALLY EVERY DAY. REMOVE PATCH AND DISCARD AFTER 12 HOURS OR DIRECTED BY MD. 30 patch 1 10/24/19 25 Active emtricitabine-ten ofovir DF (Truvada) 200-300 MG tabletIndications :On pre-exposure prophylaxis for HIV Take 1 tablet by mouth Once per day. 60 tablet 11/13/19 25 2024 Active cyclobenzaprine (Flexeril) 5 MG tablet TAKE 1 TABLET BY MOUTH IN THE MORNING, AT NOON AND AT BEDTIME NEEDED FOR MUSCLE SPASMS 90 tablet 12/07/19 25 Active DULoxetine (Cymbalta) [address] capsuleIndication s:Mood disorder (CMS/HCC) Take 2 capsules (60 mg) by mouth 2 times daily. Do not crush or chew. 120 capsule 12/07/19 25 Active lurasidone (Latuda) 60 MG tabletIndications :Mood disorder (CMS/HCC) 1 tab once daily in evening with food 30 tablet 12/07/19 Active ferrous sulfate (Fe Tabs) 325 (65 Fe) MG EC tabletIndications :Iron deficiency anemia, unspecified iron deficiency anemia type Take 1 tab every day. Do not crush, chew, or split. 90 tablet 1 12/19/19 25 Active naproxen (Naprosyn) 500 MG tabletIndications :Lumbar back pain with radiculopathy affecting right lower extremity TAKE 1 TABLET BY MOUTH TWICE DAILY NEEDED , TAKE WITH FOOD 60 tablet 1 12/28/19 25 Active nitrofurantoin, macrocrystal-mono hydrate, (Macrobid) 100 MG capsuleIndication s:Dysuria Take 1 capsule (100 mg) by mouth 2 times daily for 5 days. 10 capsule 01/04/20 25 2024 Active polyethylene glycol, PEG, 3350 (MiraLax) 17 GM/SCOOP powderIndications :Other constipation Take 17 g by mouth Once per day. 527 g 2 01/04/20 Active DULoxetine (Cymbalta) [address] capsule 12/08/19 24 2024 Discontinued(R eorder (will not trigger notification to Pharmacy)) lurasidone (Latuda) 80 MG tablet 05/06/19 24 2024 Discontinued naproxen (Naprosyn) 500 MG tabletIndications :Lumbar back pain with radiculopathy affecting right lower extremity Take 1 tablet (500 mg) by mouth if needed in the morning and at bedtime for mild pain or moderate pain. Take with food 60 tablet 2 10/02/19 25 2024 Discontinued cyclobenzaprine (Flexeril) 5 MG tablet TAKE 1 TABLET BY MOUTH IN THE MORNING, AT NOON AND AT BEDTIME NEEDED FOR MUSCLE SPASMS 90 tablet 10/30/19 25 2024 Discontinued Active Problems Problem Noted Date Diagnosed Date History of hepatitis C virus infection Type 2 diabetes mellitus wit h oral complication, without long-term current use of insulin 10/01/2024 Paronychia of finger, right 09/11/2024 Assessment & Plan (09/11/2024 2:37 PM EDT): Pt's examination suggestive of infection. 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 Pt has a VNA that comes every day at home. Already in the process of obtaining BIOMATHEMATICIAN services Plan: Plain films both knees. Nose septum deviation 08/28/2024 Unstable gait 07/06/2024 Protein-calorie malnutrition 07/06/2024 Cannabis abuse 06/19/2024 Cocaine abuse in remission 06/19/2024 Mood disorder 06/19/2024 Seizure disorder 06/19/2024 Alcohol dependence 02/21/2024 Nicotine dependence 02/21/2024 H/O thyroidectomy 02/21/2024 History of tubal ligation 02/21/2024 History of surgical procedure 02/21/2024 Acquired hypothyroidism 02/21/2024 Partial optic atrophy 02/21/2024 Overview (02/21/2024): Was referred to [facility] History of lacunar cerebrovascular accident (CVA ) 02/21/2024 Vaginal dryness 01/17/2024 Smoking 12/28/2023 Overview (12/28/2023): encourage cessation Essential hypertension 12/28/2023 Overview (12/28/2023): no HTN meds on list. BP remained above goal on repeat. Lumbar back pain with radicu lopathy affecting right lower extremity 12/28/2023 Overview (12/28/2023): reviewed w/ Lorenza unable [...] TID, clarify GI care at f/u. Encounters * This document contains information received from the source organization and may not represent a complete record from that organization. 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, without long-term current use of insulin ([facility]); Dysuria; Other constipation; Encounter for immunization 01/03/2025 Travel 01/01/[address] [address] Kamla Becerra ANP chart prep 12/26/[address] [address] Kamla Becerra ANP Lumbar back pain with radiculopathy affecting right lower extremity 12/18/2024 Results Follow-Up [address] [address] Kamla Becerra ANP Lipid Panel, Standard, Hemoglobin A1c, CBC auto differential, Additional followed-up results: 2 12/05/[address] [address] Kamla Becerra ANP 12/04/[address] [address] Kamla Becerra ANP Medication Question; Lab Orders 12/03/[address] [address] Kamla Becerra ANP Partial thickness burn of single finger of right hand excluding thumb, subsequent encounter 11/30/[address] [address] Kamla Becerra ANP Call Back Request 11/12/2024 Results Follow-Up [address] [address] Mackenzie Mahajan CNM Creatinine, Serum, HIV-1/2 Antigen and Antibodies, Fourth Generation, with Reflexes, Syphilis Screen, Additional followed-up results: 2 11/12/2024 Orders Only [address] [address] Mackenzie Mahajan CNM On pre-exposure prophylaxis for HIV 10/29/[address] [address] Kamla Becerra ANP 10/23/[address] [address] Kamla Becerra ANP 10/15/2024 11:00 AM EDT Office Visit [address] [address] Mackenzie Mahajan CNM Screening examination for venereal disease (Primary Dx); On pre-exposure prophylaxis for HIV; Bad odor of urine; Cystocele, unspecified 10/15/2024 Travel 10/11/[address] [address] Kamla Becerra ANP chartprep from Last 3 Months Immunizations Immunization Administration Dates Next Due COVID-19 Non-US Vaccine, Product Unknown 022 Hep B, adult 10/01/2024 Influenza Injectable Quadriv alant Preservative Free IIV4 MDCK 03/30/2018 Influenza, IIV3, injectable 01/20/2020 Influenza, seasonal, injectable, preservative fr ee 01/03/2025,02/21/2024 Moderna Covid-19 Vaccine 6+ Bivalent 03/11/2022 Pfizer Covid-19 Vaccine 12+ 02/21/2024 Pneumococcal Conjugate [...] Mass Index 17.7 01/03/2025 10:43 AM EDT Plan of Treatment Upcoming Encounters Date Type Department Care Team (Late st Contact Info) Description 01/10/2025 11:30 AM EDT Office Visit [facility] MED[facility] [address], [place] [phone] Mackenzie Mahajan, CN [address], [place] [phone] Health Maintenance Due Date Last Done Comments CT Colonography 1968 Colonoscopy 1968 Colorectal Cancer Screening 1968 FIT DNA/Cologuard 1968 FIT 1968 FOBT 1968 Sigmoidoscopy 1968 Diabetes: Foot Exam 1978 Eye Exam 1978 Diabetes: Urine Protein Screening 1987 Hepatitis A Vaccines (1 of 2 - Risk 2-dose series) 1987 Zoster Vaccines (1 of 2) 2018 Hepatitis B Vaccines (2 of 3 - 19+ 3-dose series) 10/29/2024 10/01/2024 Alcohol/Substance Use Screening 02/20/2025 02/21/2024 Diabetes: Hemoglobin A1C 05/12/2025 08 025, 10/01/2024, 02/21/2024 Depression Screening 07/24/2025 07/24/2024, 07/25/19 25 Disability Screening 07/24/2025 07/24/2024 Lipid Panel 11/09/2025 11/09/2024, 02/21/2024 SDOH Screening 01/03/2026 01/03/2025 Tobacco Screening 01/03/2026 01/03/2025 Mammogram 03/21/2026 03/21/2024, 03/11, 06/21/2023 Cervical Cancer Screening 11/17/2026 HPV/Cotest 11/17/2026 Pap Smear 11/17/2026 11/17/2021 DTaP/Tdap/Td Vaccines (2 - Td or Tdap) 12/27/2033 12/28/2023 RSV Patients and Patients Aged 60 years or older (1 - 1-dose 75+ series) 2043 Pneumococcal Vaccine: 50+ Years Completed 12/28/2023, 01/20/2020 COVID-19 Vaccine Completed 02/21/2024, 04/2021, 12/31/2021, Additional history exists HIV Screening Completed 11/09/2024, 11/2024, 04/24/2024 Influenza Vaccine Completed 01/03/2025, , 01/20/2020, Additional history exists HIB Vaccines Aged Out No longer eligi [...] disease, without long-term current use of insulin ([facility]) SYPHILIS SCREEN Routine 11/09/2024 11:07 AM EDT Screening examination for venereal disease HIV 1/2 ANTIGEN/ANTIBODY, FOURTH GENERATION W/RFL Routine 11/09/2024 11:07 AM EDT Screening examination for venereal disease CREATININE, SERUM Routine 11/09/2024 11: 07 AM EDT On pre-exposure prophylaxis for HIV HEPATITIS C VIRAL RNA, QUANTITATIVE, REAL-TIME PCR Routine 11/09/2024 11:07 AM EDT History of hepatitis C virus infection VITAMIN B12 Routine 11/09/2024 11:07 AM EDT Anemia, unspecified type IRON AND TOTAL IRON BINDING CAPACITY Routine 11/09/2024 11:07 AM EDT Anemia, unspecified type CBC WITH AUTO DIFFERENTIAL Routine 11/09/2024 11:07 AM EDT Anemia, unspecified type HEMOGLOBIN A1C Routine 11/09/2024 11:07 AM EDT 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, without long-term current use of insulin ([facility]) LIPID PANEL, STANDARD Routine 11/09/2024 11:07 AM EDT 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, without long-term current use of insulin ([facility]) Dyslipidemia URINALYSIS, COMPLETE Routine 11/09/2024 11:05 AM EDT Bad odor of urine CULTURE, URINE, ROUTINE Routine 11/09/2024 11:05 AM EDT Bad odor of urine HM MAMMOGRAPHY Routine 06/21/2023 PAP SMEAR Routine 11/17/2021 12:00 AM EDT from Last 3 Months or Most Recently Relevant to Health Maintenance Results * (ABNORMAL) POCT Urinalysis (01/03/2025 10:53 AM EDT) Color, UA Yellow Clarity, UA Clear Glucose, UA Negative Bilirubin, UA Negative Ketones, UA Negative Spec Grav, UA 1.015 Blood, UA Negative Negative, None Detected pH, UA 6.0 Protein, UA Negative Urobilinogen, UA 0.2 Leukocytes, UA Negative Negative, Rare, Trace Nitrite, UA Positive(A) Negative, None Detected QC Media Lot # [id number] Lot# Expiration Date 33312, Urine 01/03/2025 10:5 3 AM EDT Kamla Becerra [facility] POINT OF CARE TEST ENTER/EDIT OR DERABLES Final Result * POCT Glucose (01/03/2025 10:44 AM EDT) [facility] Glucose Blood, POC 127 60 - 200 mg/dL QC Media Lot # [id number] Lot# Expiration Date 811 Blood Capillary blood specimen / Unknown 01/03/2025 10:44 AM EDT Kamla Becerra [facility] POINT OF CARE TEST ENTER/EDIT OR DERABLES Final Result * Syphilis Screen (11/09/2024 11:07 AM EDT) [facility] Syphilis Screen Nonreactive Nonreactive [facility] Blood Venous blood specimen / Unknown 11/09/2024 11:07 AM EDT 11/09/2024 11:07 AM EDT Mackenzie SILVER LAB BLOOD ORDERABLES Tammie l Result [facility] [address] [place] [phone] * Hepatitis C Viral RNA, Quantitative, Real-Time PCR (11/09/2024 11:07 AM EDT) [facility] Hepatitis C Viral Load <15 NOT DETECTED NOT DETECTED IU/mL [facility] HCV Log PCR <1.18 NOT DETECTED NOT DETECTED Log IU/mL [facility] Comment:For additional infor kaya, please refer [email or web address](This link is being provided for informational/educational purposes only.)THIS TEST WAS PERFORMED AT:[employer] [place] [phone] STOCKTON MD Blood 11/09/2024 11:0 7 AM EDT 11/09/2024 11:07 AM EDT Kamla GARCÍA LAB BLOOD ORDERABLES Final Resul t Performing Organization Address City/[facility]/ZIP Co de Phone Number [facility] [address] [place] [phone] * Creatinine, Serum (11/09/2024 11:07 AM EDT) Creatinine, Serum 0.76 0.5 - 1.4 mg/dL [facility] Estimated Glomerular Filt Rate >60 [facility] Comment:Chronic Kidney Disea se: Estimated GFR < 60 mL/min/1.12g5Cxuezo Kidney Disease: Estimated GFR < 15 mL/min/1.73m2 Blood 11/09/2024 11:0 7 AM EDT 11/09/2024 11:07 AM EDT Mackenzie SILVER LAB BLOOD ORDERABLES Tammie l Result Performing Organization Address City/[facility]/ZIP Co de Phone Number [facility] [address] [place] [phone] * (ABNORMAL) CBC auto differential (11/09/2024 11:07 AM EDT) White Blood Count 5.3 4.8 - 10.8 X10*3/uL [facility] Red Blood Count 4.00(L) 4.20 - 5.50 X10*6/uL [facility] Hemoglobin 11.0(L) 12.0 - 16.0 g/dl [facility] Hematocrit 33.3(L) 37.0 - 47.0 % [facility] Mean Corpuscular Volume 83.3 80.0 - 98.0 fL [facility] Mean Corpuscular Hemoglobin 27.5 27.0 - 33.0 pg [facility] Mean Corpuscular HGB Conc 33.0 31.0 - 35.0 g/dl [facility] Red Cell Distribution Width 17.8(H) 11.0 - 16.0 % [facility] Platelet Count 361 160 - 400 X10*3/uL [facility] Mean Platelet Volume 8.8(L) 9.4 - 12.3 fL [facility] Neutrophils Percent Auto 34.4(L) 45 - 73 % [facility] Imm Gran Pct Auto 0.2 0.0 - 0.4 % [facility] Lymphocytes Percent Auto 50.8(H) 20 - 40 % [facility] Monocytes Percent Auto 9.0 2 - 11 % [facility] Eosinophils Percent Auto 4.5(H) 0 - 4 % [facility] Basophils Percent Auto 1.1 0 - 2 % [facility] NRBC Pct Auto 0.0 0.0 - 0.2 /100WBC [facility] Neutrophils Absolute Auto 1.8(L) 2.0 - 8.3 x10*3/uL [facility] Imm Gran Abs Auto 0.01 0.00 - 0.03 X10*3/uL [facility] Lymphocytes Absolute Auto 2.7 1.2 - 4.9 X10*3/uL [facility] Monocytes Absolute Auto 0.5 0.1 - 1.2 X10*3/uL [facility] Eosinophils Absolute Auto 0.2 0.0 - 0.4 X10*3/uL [facility] Basophils Absolute Auto 0.1 0.0 - 0.2 X10*3/uL [facility] NRBC Abs Auto 0.000 0.0 - 0.012 X10*3/uL [facility] Blood Venous blood specimen / Unknown 11/09/2024 11:07 AM EDT 11/09/2024 11:07 AM EDT us Kamla Becerra [facility] LAB BLOOD ORDERABLES Final Resul t [facility] [address] [place] [phone] * (ABNORMAL) Iron And Total Iron Binding Capacity (11/09/2024 11:07 AM EDT) Iron 37 30 - 160 mcg/dL [facility] Total Iron Binding Capacity 380 228 - 428 mcg/dL [facility] Percent Iron Saturation 10(L) 15 - 50 % [facility] Unsaturated Iron Binding 343 ug/dL [facility] Blood Venous blood specimen / Unknown 11/09/2024 11:07 AM EDT 11/09/2024 11:07 AM EDT Kamla GARCÍA LAB BLOOD ORDERABLES Final Resul t [facility] [address] [place] [phone] * HIV-1/2 Antigen and Antibodies, Fourth Generation, with Reflexes (11/09/2024 11:07 AM EDT) Pathologist [facility] HIV AB/AG Nonreactive Nonreactive [facility] Comment:HIV-1 p24 Ag and/or HIV-1/HIV-2 Ab not detected.A test result that is nonreactive does not exclude thepossibility of exposure to or infection with HIV-1 and/orHIV-2. Nonreactive results in this assay for individualswith prior exposure to HIV-1 and/or HIV-2 may be due toantigen and antibody levels that are below the limit ofdetection of this assay.The [employer] HIV Ag/Ab Combo assay result andsupplemental assay results should be interpreted inconjunction with the patient's clinical presentation,history and other laboratory results. If the results areinconsistent with clinical evidence, additional testing issuggested to confirm the result. Blood Venous blood specimen / Unknown 11/09/2024 11:07 AM EDT 11/09/2024 11:07 AM EDT us Mackenzie Mahajan [facility] LAB BLOOD ORDERABLES Tammie l Result Performing Organization Address [facility] Co de Phone Number [facility] [address] [place] [address] [phone] * (ABNORMAL) Hemoglobin A1c (11/09/2024 11:07 AM EDT) Hemoglobin A1c 6.1(H) <6.0 % [facility] Comment:Hemoglobin A1C Refer ence Range Adults: 4.8 - 6.0 % Non diabetic: < 6.0 % Goal: < 7.0 %Additional Action Suggested: > 8.0 %Note: Hemoglobin A1c results are invalid for patients with abnormal amounts of HbF. Blood transfusions may impact the HbA1c concentration in the patient sample. Estimated Average Glucose 128 mg/dL [facility] Comment:eAG = Estimated ave rage glucose which is %A1C expressed asaverage glucose, using the formula of the [id number]-[id number] Glucose study (ADAG), Diabetes Care, Vol.31,#8,2007 Blood Venous blood specimen / Unknown 11/09/2024 11:07 AM EDT 11/09/2024 11:07 AM EDT us Kamla Becerra ANP LAB BLOOD ORDERABLES Final Resul t Performing Organization Address [facility] Co de Phone Number [facility] [address] [place] [phone] * Vitamin B12 (11/09/2024 11:07 AM EDT) Vitamin B12 651 200 - 900 pg/mL [facility] Comment:NORMAL 200-900 PG/ML INDETERMINATE 160-199 PG/ML DEFICIENT < 160 PG/ML Blood Venous blood specimen / Unknown 11/09/2024 11:07 AM EDT 11/09/2024 11:07 AM EDT us Kamla Becerra ANP LAB BLOOD ORDERABLES Final Resul t Performing Organization Address [facility] Co de Phone Number [facility] [address] [place] [address] [phone] * Lipid Panel, Standard (11/09/2024 11:07 AM EDT) Triglycerides 86 <150 mg/dL [facility] Comment:Desirable Triglyceri de: less than 150 mg/dLBorderline High Triglyceride 150-199 mg/dLHigh Triglyceride: 200-499 mg/dLVery High Triglyceride: greater than or equal to 5OO mg/dL Cholesterol 136 <200 mg/dL [facility] Comment:Desirable Cholestero l: less than 200 mg/dLBorderline High Cholesterol: 200-239 mg/dLHigh Cholesterol: greater than 239 mg/dL LDL Cholesterol Calculated 55 <100 mg/dL [facility] Comment:Desirable LDL: less than 100 mg/dLNear Optimal/Above Optimal LDL: 110- 129 mg/dLBorderline High LDL: 130-159 mg/dLHigh LDL: 160-189 mg/dLVery High LDL: greater than or equal to 190 mg/dL HDL Cholesterol 64 >40 mg/dL [facility] Comment:Desirable HDL: grea ter than 40 mg/dL Note: This HDL assay may give artificially low results in patients with liver disease. Blood Venous blood specimen / Unknown 11/09/2024 11:07 AM EDT 11/09/2024 11:07 AM EDT Kamla Becerra [facility] LAB BLOOD ORDERABLES Final Resul t [facility] [address] [place] [phone] * (ABNORMAL) Urinalysis Complete (11/09/2024 11:05 AM EDT) Color Urine Yellow [facility] Appearance Urine Cloudy [facility] PH 7.0 5.0 - 9.0 [facility] Glucose Urine UA 100(A) Negative mg/dL [facility] Urine Blood Negative Negative [facility] Specific [place] - Urine 1.015 1.005 - 1.025 [facility] Urine Protein Trace Neg-Trace mg/dL [facility] Urine Ketones Negative Negative mg/dL [facility] Nitrite Urine Negative Negative [facility] Leukocyte Esterase Urine Trace(A) Negative [facility] RBC Urine 0-2 0 - 2 /HPF [facility] Urine WBC 0-5 0 - 5 /HPF [facility] Urine Squamous Epithelial Cell 11-20 0 - 2 /HPF [facility] Urine Bacteria Trace None Seen [facility] Hyaline Casts, Urine 0-2 0 - 2 /LPF [facility] Urine (Urine, Random) 11/09/2024 11:05 AM EDT 11/09/2024 11:34 AM EDT Mackenzie Mahajan [facility] URINE ORDERABLES Tammie l Result Performing Organization Address [facility]/ZIP Co de Phone Number [facility] [address] [place] [phone] * Culture, Urine, Routine (11/09/2024 11:05 AM EDT) Urine Urine specimen obtained by clean catch procedure / Unknown 11/09/2024 11:05 AM EDT 11/09/2024 11:34 AM EDT Comment:UACC Narrative [facility] - 11/10/2024 11:38 AM EDT Urine Culture Report Result Urine Culture 10,000 to 50,000 cfu/ml Urine Culture Mixed bacterial uli characteristic of Urine Culture urogenital contamination. Strep agalactiae (Grp B) Quant < 10,000 cfu/mL Susc N/A Susceptibility not routinely performed on this isolate. Specimen Source: Urine clean catch [facility] MICROBIOLOGY - GENERA L ORDERABLES Final Result Performing Organization Address [facility]/ZIP Co de Phone Number [facility] [address] [place] [address] [phone] * Mammography (06/21/2023) Mammogram BIRADS 2 Normal, Abnormal, BIRADS 1 , BIRADS 2 Anatomical Region Laterality Modality Other Historical Provider HEALTH MAINTENANCE Final Result * Pap Smear (11/17/2021 12:00 AM EDT) Swab Mohan Peres MD LAB CYTOLOGY ORDERABLES Final Re sult [facility] [address] [place] [address] [phone] from Last 3 Months or Most Recently Relevant to Health Maintenance Insurance [employer] Care Teams Transmission Systems Operator Relationship Specialty Start Date End Date Kamla Becerra ANP [address] [place] [address] PCP - General Family Medicine 12/28/23 [facility] 07/09/24
--- OUTSIDE RECORDS SUMMARY | 2025-01-03 18:09 | XMS_ITS | Encounter Summary ---
Author Organization [employer] Address [address] [facility] [address] [place] [address] Care Team Providers Care Strip Picker Name Role Phone Kamla Becerra Primary Care Provider [phone] Julien Mckay RN Unavailable [phone] Encounter Details Date Type Department Care Team ([facility] st Contact Info) Description 01/17/2024 Orders Only [facility] [address] [place], [place] [phone] Kamla Becerra ANP [address] [place] [address] Social History Tobacco Use Types Packs/Day Years [...] 01/10/2025 11:30 AM EDT Office Visit [facility] [address] [place] [address] Mackenzie Mahajan CNM [address] [place] [address] documented as of this encounter Visit Diagnoses Not on filedocumented in this encounter Additional Health Concerns Assessment Noted Time PHQ-9 Depression Total Score: 24 024 2:35 PM EDT documented as of this encounter Care Teams Strip Picker Relationship Specialty Start Date End Date Kamla Becerra ANP [address] [place] [address] PCP - General Family Medicine 12/28/23 Julien Mckay RN [address] [place] [address] Acute Care Physical TherapistUrologic Nurse 07/10/24 09/09/24 [facility] 07/09/24 documented as of this encounter
--- OUTSIDE RECORDS SUMMARY | 2025-01-03 18:09 | XMS_ITS | Encounter Summary ---
Author Organization [employer] Address [address] [facility] [address] [place] [address] Care Team Providers Care Beauty Culturist Name Role Phone Kamla Becerra Primary Care Provider [phone] Julien Mckay RN Unavailable [phone] Reason for Visit * Reason Onset Date Comments Call Back Request 06/19/2024 Encounter Details Date Type Department Care Team (Late st Contact Info) Description 06/19/2024 Telephone [facility] [address] [place], [place] [phone] Kamla Becerra ANP [address] [place], [place] [phone] Call Back Request Social History Tobacco Use [...] visiting nurse for pt. Pt went to [facility] 06/17/24 for right ring finger burn.She [...] antibiotics and naproxen but still has pain. Well Logging Captain Mud Analysis advised nurse that pt should seek medical [...] understanding, asked nurses to call Shelley at [phone] to inform about appt. Called pt at this new number, no answer, left voicemail to call back [facility]. * Telephone Encounter - Angelo Lebron - 06/19/2024 11:31 AM EDT [facility] for [facility] pt requesting a call back to Discuss taking care of wounds. Contact pt at [phone] documented in this encounter Plan of Treatment Upcoming Encounters Date Type Department Care Team (Late st Contact Info) Description 01/10/2025 11:30 AM EDT Office Visit [facility] [address] [place] [address] Mackenzie Mahajan CNM [address] [place] [address] documented as of this encounter Visit Diagnoses Not on filedocumented in this encounter Additional Health Concerns Assessment Noted Time PHQ-9 Depression Total Score: 24 024 2:35 PM EDT documented as of this encounter Care Teams Beauty Culturist Relationship Specialty Start Date End Date Kamla Becerra ANP [address] [place] [address] PCP - General Family Medicine 12/28/23 Julien Mckay, YARI [address] [place] [address] Weigher And GraderElectrical Engineering Teacher 07/10/24 09/09/24 [facility] 07/09/24 documented as of this encounter
== END 2025-01-03 13:36 | disposition home or self-care (01) ==
LOC: HO.HHCLNP 13:35
PROVIDERS: Visit Provider Nurse Practitioner Primary Care
DX: R30.0 Dysuria (principal)
CPT/HCPCS: 87086; 87088; 87186